=== PATIENT | female | born 1955 | race Caucasian/White ===

== ENCOUNTER → 2016-06-11 | Outpatient (REF) | payer MEDICARE, MEDICAID ==
[~2016-06-11] MED LIST: /BACL20TA PO; /HCTZ25TA PO; AMAR1TAB5 PO; AMLO5TAB2 PO; ASPI81TA PO; BACL-67 PO; CENTTAB PO; COLA100C PO; ENAL2.5T PO; ENAL20TA PO; GABA300C2 PO; HYDR-3565 PO; LORA10TA2 PO; METF1000 PO; NASA55AE; NORCOBULK PO; OMEP20CA3 PO; OXYC15TA76 PO; OXYC1SOL PO; RISP0.5T16 PO; ROBA750T4 PO; SERO1TAB3 PO; TIZA4CAP3 PO; TYLE325T5 PO; ZYRT10TA2 PO; [UNRECOGNIZED DRUG - CODE] PO
[2016-06-11 12:18] LABS: ANION GAP 7 MEQ/L (8-16); BLOOD UREA NITROGEN 10 MG/DL (7-18); CARBON DIOXIDE LEVEL 32 MEQ/L (21-32); CHLORIDE LEVEL 102 MEQ/L (98-107); CREATININE FOR GFR 0.79 MG/DL (0.55-1.02); GLOMERULAR FILTRATION RATE > 60.0 (>45); GLUCOSE, FASTING 140 MG/DL (80-110); POTASSIUM SERUM 4.3 MEQ/L (3.5-5.1); SODIUM LEVEL 141 MEQ/L (136-145)
[2016-06-11 12:19] LABS: ALBUMIN 3.5 GM/DL (3.2-5.2); ALBUMIN/GLOBULIN RATIO 0.92 (1.00-1.93); ALKALINE PHOSPHATASE 76 U/L (45-117); ALT/SGPT 29 U/L (12-78); AST/SGOT 25 U/L (15-37); BILIRUBIN,TOTAL 0.5 MG/DL (0.2-1.0); CALCIUM LEVEL 8.3 MG/DL (8.8-10.2); CHOLESTEROL LEVEL 114 MG/DL (<200); TOTAL PROTEIN 7.3 GM/DL (6.4-8.2); TRIGLYCERIDES LEVEL 134 MG/DL (<150)
== END ==
LOC: M SFHCPLAZ 08:51
PROVIDERS: ATTEND Nurse Practitioner Family
DX: E13.9 Other specified diabetes mellitus without complications (principal); E78.5 Hyperlipidemia, unspecified

== ENCOUNTER → 2016-07-18 | Outpatient (CLI) | payer MEDICARE, MEDICAID ==
[~2016-07-18] MED LIST changes: -HYDR-3565 PO; +HYDR-3719 PO
--- NOTE | 2016-07-26 00:20 | ECWPNPC ---
PATIENT NAME: MOY ELIZABETH : 1955 GENDER: FEMALE VISIT DATE: 07/18/2016 DISCHARGE DATE: 07/18/16 1149 VISIT LOCKED DATE TIME: PHYSICIAN: RD HOUSE PHYSICIAN PAGER NO: TEXT DM [phone] RESOURCE: RD HOUSE REASON FOR APPOINTMENT 1. BACK HISTORY OF PRESENT ILLNESS HISTORY OF PRESENT ILLNESS: PAIN THE PATIENT DESCRIBES THE PAIN... FALL RISK SCREENING: SCREENING :NO FALLS IN THE PAST YEAR TODAY'S VISIT: NOTES: FIRST RETURN TO CLINIC SINCE 01/15. RATES PAIN TODAY 06/11. PAIN IS CENTERD IN LOW BACK HAS BEEN HAVING A NEW AREA OF PAIN AND IS GOING TO CALL HER SURGEONS OFFICE IN [place]. HAS HAD SOME ACHINESS IN HIPS. NO NUMBNESS OR TINGLING IN FEET. . CURRENT MEDICATIONS TAKING GLIMEPIRIDE 4 MG TABLET TAKE ONE TABLET BY MOUTH ONCE DAILY WITH BREAKFAST OR THE FIRST MAIN MEAL OF THE DAY TAKING CENTRUM SILVER OTC TABLET DIRECTED ORALLY ONCE A DAY TAKING COLACE 100 MG CAPSULE 1 CAPSULE NEEDED ORALLY TWICE A DAY TAKING FLONASE 50 MCG/ACT SUSPENSION 1 SPRAY IN EACH NOSTRIL NASALLY ONCE A DAY TAKING SEROQUEL 25 25 MG TABLET 1 TAB ORAL DAILY TAKING GLUCOSE BLOOD . STRIP ONE STRIP FOR [employer] MACHINE CHECK BLOOD SUGAR TWICE A DAY DX E11.65 TAKING VENTOLIN HFA 108 (90 BASE) MCG/ACT AEROSOL SOLUTION 2 PUFFS NEEDED INHALATION EVERY 4 HRS TAKING ZYRTEC ALLERGY 10 MG TABLET 1 TABLET NEEDED ORALLY AT BEDTIME TAKING ATORVASTATIN CALCIUM 20 MG TABLET TAKE ONE TABLET BY MOUTH ONCE DAILY ORALLY ONCE A DAY TAKING NORVASC 5 MG TABLET 1 TABLET ORALLY ONCE A DAY TAKING ENALAPRIL MALEATE 20 MG TABLET 1 TABLET ORALLY TWICE A DAY TAKING PRILOSEC 20 MG DELAYED RELEASE CAPSULE TAKE ONE CAPSULE BY MOUTH 2 TIMES A DAY TAKING GABAPENTIN 300 MG CAPSULE 1 CAPSULE ORALLY THREE TIMES A DAY TAKING HYDROCHLOROTHIAZIDE 25 MG TABLET TAKE ONE TABLET BY MOUTH ONCE DAILY TAKING METFORMIN HCL 1000 MG TABLET TAKE ONE TABLET BY MOUTH 2 TIMES A DAY WITH MEALS TAKING LANCETS . MISCELLANEOUS ONE LANCET SUBCUTANEOUS TWICE DAILY / DX : E11.65 TAKING ONGLYZA 5 MG TABLET 1 TABLET ORALLY ONCE A DAY TAKING ASPIRIN 81 MG TABLET CHEWABLE 1 TABLET ORALLY DAILY TAKING OXYCODONE HCL 15 MG TABLET 1 TABLET ORALLY EVERY 6 HRS PRN PAIN MDD=4 NOT-TAKING JARDIANCE 10 MG TABLET 1 TABLET ORALLY ONCE A DAY NOT-TAKING GLUCOMETER DIRECTED _ICD10 E11.9 ONCE DAILY PREFERS ONE TOUCH ULTRA NOT-TAKING NORVASC 5 MG TABLET TAKE 1 TABLET BY MOUTH ONCE DAILY DISCONTINUED AUGMENTIN 875-125 MG TABLET 1 TABLET ORALLY EVERY 12 HRS DISCONTINUED GLIMEPIRIDE 4 MG TABLET 1 TABLET WITH BREAKFAST OR THE FIRST MAIN MEAL OF THE DAY ORALLY ONCE A DAY DISCONTINUED DIFLUCAN 150MG (1 TABLET) 150 MG TABLET 1 TABLET ORALLY ONCE A DAY DISCONTINUED DIFLUCAN 150 MG TABLET 1 TABLET ORALLY ONCE A DAY MEDICATION LIST REVIEWED AND RECONCILED WITH THE PATIENT PAST MEDICAL HISTORY HYPERTENSION DM 2 ALLERGIC RHINITIS GERD ARTHRITIS EKG [facility] 02/14 EMG/NCS LES NCN 2011 NML. BILAT CTS XR LS SPINE 01/12 L 5 SPONDYLOLYSIS, GRADE 2 SPODYLOLITHESIS L5-S1 WITH DISC SPACES INTACT MRI LS SPINE 04/19/13 BILATERAL L5 SPONDYLOSIS, GRADE 2, 12 MM L5-S1 SPONDYLOLISTHESIS, BILATERAL L5-S1 NEURAL FORAMINAL NARROWING, DISC PROTRUSION L3-4- [facility]- DR YIN. [facility] PAIN CLINIC MAMMO- 08/14 [facility] (LAST APPT 01/12) LEFT EAR PAIN- EVAL BY ENT 10/13 FELT TO BE TMJ RELATED TO LACK OF TEETH. MRI BRAIN- CHRONIC SMALL VESSEL ISCHEMIC DISEASE/NON SPECIFIC DEMYELINATION. TOURETTE'S SYNDROME- NCN ALLERGIES SEASONAL: WATERY EYES, SNEEZING: ALLERGY SULFA: GI DISTRESS: SIDE EFFECTS SOCIAL HISTORY GENERAL: TOBACCO USE ARE YOU A:NONSMOKER LEARNING BARRIERS / SPECIAL NEEDS ORIENTED TO PLAN OF CARE: PATIENT, PAIN MANAGEMENT PATIENT, ORIENTED TO PLAN OF CARE: PATIENT, PAIN MANAGEMENT PATIENT. NEW PATIENT PAIN DIARY TODAY'S VISITNOTES FROM 0-10, WHAT LEVEL IS YOUR PAIN TODAY?0 PAIN CLINIC PFS, CLERGY, PUBLIC HEALTH REFERRALS PFS REFERRAL NEEDED?NO CLERGY REFERRAL NEEDED?NO PUBLIC HEALTH REFERRAL NEEDED?NO WAS THE PROVIDER NOTIFIED OF ANY PERTINENT INFO?NO PFS REFERRAL NEEDED?NO CLERGY REFERRAL NEEDED?NO PUBLIC HEALTH REFERRAL NEEDED?NO WAS THE PROVIDER NOTIFIED OF ANY PERTINENT INFO?NO REVIEW OF SYSTEMS CONSTITUTIONAL: ANY CHANGE IN YOUR MEDICAL CONDITION? NO . CHILLS NO . FEVER NO . INFECTION: DO YOU HAVE NEW INFECTIONS? NO . DO YOU HAVE HISTORY OF MRSA? NO . MUSCULOSKELETAL: ANY NEW PATTERNS OF PAIN OR NUMBNESS? NO . GASTROENTEROLOGY: ANY NEW CHANGE IN BOWEL CONTROL? NO . GENITOURINARY: ANY NEW CHANGE IN BLADDER CONTROL? NO . IS THERE A CHANCE YOU COULD BE ? NO . HEMATOLOGY/LYMPH: DO YOU TAKE ANY BLOOD THINNERS? (FOR EXAMPLE- COUMADIN, PLAVIX, AGGRENOX, PLATEL, PRADAXA, OR XARELTO) NO . WHEN WAS YOUR LAST DOSE? DATE: TIME: . NEUROLOGY: HAVE YOU FALLEN IN THE PAST 6 MONTHS? NO . ANY NEW EXTREMITY NUMBNESS OR WEAKNESS? NO . CARDIOLOGY: DO YOU HAVE A PACEMAKER OR DEFIBRILLATOR? NO . RESPIRATORY: HAVE YOU BEEN SICK IN THE PAST WEEK? NO . FEVER NO . FLU LIKE SYMPTOMS? NO . COUGH NO . INTEGUMENTARY: DO YOU HAVE ANY RASHES OR OPEN SORES? NO . ALLERGIC/IMMUNO: ARE YOU ALLERGIC TO SHELLFISH OR IV DYE? NO . ANY NEW ALLERGIES? NO . PSYCHIATRIC: DO YOU HAVE THOUGHTS OF HURTING YOURSELF OR SOMEONE ELSE? NO . ARE YOU ABUSED, NEGLECTED, OR IN AN UNSAFE ENVIRONMENT? NO . ENDOCRINOLOGY: ARE YOU DIABETIC? YES A1C IS MOVING DOWN. BS 113 -120. IS SEEING A DIETITIION . OTHER: DO YOU NEED ANY PRESCRIPTIONS? NO . IF YES, PLEASE LIST: ____ . ANY NEW PROBLEMS WITH YOUR MEDICATIONS? NO . WHEN DID YOU LAST EAT? ____ . WHEN DID YOU LAST DRINK? ____ . WHAT DID YOU LAST DRINK? ____ . NAME OF PERSON DRIVING YOU HOME? ____ . DO YOU HAVE ANY OTHER QUESTIONS OR CONCERNS NO . REVIEWED BY: PROVIDER: RD VELASQUEZ . VITAL SIGNS WT 253.0 LBS, HT 68 IN, BMI 38.46 INDEX, BP 144/87 MM HG, HR 107 /MIN, RR 18 /MIN, TEMP 97.8 F, OXYGEN SAT % 94, NA INITIALS TL 0942, REVIEWED BY: MLF. EXAMINATION GENERAL EXAMINATION: PSYCHALERT , ORIENTED X 3 , APPROPRIATE MOOD AND AFFECT . LUNGS:LUNG SOUNDS ARE CLEAR, NO WHEEZES RALES OR RHONCHI. HEART:HEART RATE REGULAR. MUSCULOSKELETAL:MUSCLE STRENGTH TESTING 5/5 BILATERAL LOWER EXTREMITIES. RISES EASILY TO STANDING POSITION. POSTURE UPRIGHT. GAIT WIDEBASED, NONANTALGIC. MILD TENDERNESS OVER LUMBOSACRAL AXIS. , TRIGGER POINTS AND TIGHT FIBROUS BANDS OVER LUMBOSACRAL PARAVERTEBRAL MUSCLES. . ASSESSMENTS LUMBAR POST-LAMINECTOMY SYNDROME - M96.1 (PRIMARY) DORSALGIA, UNSPECIFIED - M54.9 MYALGIA - M79.1 TREATMENT LUMBAR POST-LAMINECTOMY SYNDROME NOTES: CALL WHEN SCRIPTS NEEDED UTOX TODAY, #128 - SCREENING BMI AND F/U PLAN IN : BMI ABOVE NORMAL TODAY. DISCUSSED WITH PATIENT NUTRITIONAL FOOD CHOICES TO ASSIST WITH WEIGHT LOSS. RECCOMMENDED REDUCING SALT, SUGAR, SODA INTAKE. RECOMMEND INCREASE ACTIVITY TO INCLUDE WALKING ON A REGULAR BASIS. CLINICAL NOTES: ISTOP REGISTRY REVIEWED AND DEMNOSTRATES COMPLLIANCE. BRINGS IN MEDICATIONS WHICH IS APPROPRIATE FOR WHAT WAS DISPENSED. RECENT URINE TOXICOLOGY REVIEWED. NO UNAUTHORIZED MEDICATIONS. NO ILLICIT SUBSTANCES AND PRESCRIBED MEDICATIONS WERE PRESENT. PROCEDURE CODES FA211 ESTABILISHED PATIENT [facility] FACILITY CHARGE G8783 BP SCR PRFRM RCMDD DEFIND SCR INTVL G8730 PAIN ASSESS POS TOOL F/U PLAN DOC 3016F PT SCRND UNHLTHY [place] USE 1124F ACP DISCUSS-NO DSCNMKR DOCD 1036F TOBACCO NON-USER G8427 DOC MEDS VERIFIED W/PT OR RE G8417 BMI >=30 CALCUATE W/FOLLOWUP 3288F FALL RISK ASSESSMENT DOCD DISPOSITION & COMMUNICATION FOLLOW UP 2 MONTHS (REASON: BACK PAIN ) ELECTRONICALLY SIGNED BY MITUL MAYO ON 07/25/2016 AT 10:10 AM EST DISCLAIMER : THIS IS A VISIT SUMMARY EXTRACTED FROM THE [facility] CHART. IT IS NOT A COPY OF THE [employer] PROGRESS NOTE. MTDD
== END ==
LOC: M PAIN 10:00
PROVIDERS: ATTEND Nurse Practitioner Family
DX: M96.1 Postlaminectomy syndrome, not elsewhere classified (principal); M54.9 Dorsalgia, unspecified; M79.1 Myalgia; Z79.891 Long term (current) use of opiate analgesic; Z79.82 Long term (current) use of aspirin; Z79.899 Other long term (current) drug therapy; Z79.84 Long term (current) use of oral hypoglycemic drugs; I10 Essential (primary) hypertension; E11.9 Type 2 diabetes mellitus without complications; K21.9 Gastro-esophageal reflux disease without esophagitis; M19.90 Unspecified osteoarthritis, unspecified site; I25.9 Chronic ischemic heart disease, unspecified; F95.2 Tourette's disorder; Z88.2 Allergy status to sulfonamides; Z91.09 Other allergy status, other than to drugs and biological substances

== ENCOUNTER → 2016-08-30 | Outpatient (CLI) | payer MEDICARE, MEDICAID ==
[~2016-08-30] MED LIST changes: -COLA100C PO; +COLA100C3 PO
--- NOTE | 2016-08-30 12:41 | REPMRS ---
Patient History The patient states she had a clinical breast exam in 07/2016. Patient is postmenopausal. No known family history of cancer. Digital Woman Screen Mammo: August 30, 2016 - Exam #: [id number] Bilateral CC and MLO view(s) were taken. Technologist: Charity Kay, Technologist Prior study comparison: August 11, 2015, digital woman screen mammo performed at [facility]. August 09, 2014, digital woman screen mammo performed at [facility]. January 21, 2013, digital woman screen mammo performed at [facility]. FINDINGS: The breast tissue is almost entirely fat. There has been no change in the appearance of the mammogram from the prior studies. There is no interval development of dominant mass, areas of architectural distortion, or clustered microcalcification typical of malignancy. There are scattered, small, benign calcifications of doubtful clinical significance. Mostr of these are in the skin. Scattered lymph nodes are seen in the left axilla. No significant changes when compared with prior studies. ASSESSMENT: BI-RADS/ACR category 2 mammogram. Benign finding(s). Recommendation Routine screening mammogram in 1 year. A. Negative x-ray reports should not delay biopsy if a dominant or clinically suspicious mass is present. B. Four to eight percent of cancers are not identified by mammography. C. Adenosis and dense breast may obscure an underlying neoplasm.(for women over age 40). This mammogram was interpreted with the aid of an FDA-approved computer-aided dectection system. Electronically Signed By: Haresh Anderson MD 08/30/16 [id number]
== END ==
LOC: M WHC 10:14
PROVIDERS: ATTEND Nurse Practitioner Women's Health
DX: Z01.419 Encounter for gynecological examination (general) (routine) without abnormal findings (principal); Z12.31 Encounter for screening mammogram for malignant neoplasm of breast; Z78.0 Asymptomatic menopausal state; Z12.12 Encounter for screening for malignant neoplasm of rectum
CPT/HCPCS: 82270; G0101; G0202

== ENCOUNTER → 2016-09-11 | Outpatient (REF) | payer MEDICARE, MEDICAID ==
[2016-09-11 12:08] LABS: ALBUMIN 3.5 GM/DL (3.2-5.2); ALBUMIN/GLOBULIN RATIO 0.95 (1.00-1.93); ALKALINE PHOSPHATASE 80 U/L (45-117); ALT/SGPT 36 U/L (12-78); ANION GAP 6 MEQ/L (8-16); AST/SGOT 26 U/L (15-37); BILIRUBIN,TOTAL 0.5 MG/DL (0.2-1.0); BLOOD UREA NITROGEN 14 MG/DL (7-18); CALCIUM LEVEL 9.5 MG/DL (8.8-10.2); CARBON DIOXIDE LEVEL 33 MEQ/L (21-32); CHLORIDE LEVEL 101 MEQ/L (98-107); CREATININE FOR GFR 0.83 MG/DL (0.55-1.02); GLOMERULAR FILTRATION RATE > 60.0 (>45); GLUCOSE, FASTING 143 MG/DL (80-110); POTASSIUM SERUM 4.3 MEQ/L (3.5-5.1); SODIUM LEVEL 140 MEQ/L (136-145); TOTAL PROTEIN 7.2 GM/DL (6.4-8.2)
[2016-09-11 12:09] LABS: VITAMIN B12 LEVEL 301 PG/ML (247-911)
== END ==
LOC: M SFHCPLAZ 09:17
PROVIDERS: ATTEND Nurse Practitioner Family
DX: E11.9 Type 2 diabetes mellitus without complications (principal); F95.2 Tourette's disorder

== ENCOUNTER → 2016-09-23 | Outpatient (CLI) | payer MEDICARE, MEDICAID ==
--- NOTE | 2016-10-10 00:20 | ECWPNPC ---
PATIENT NAME: MOY ELIZABETH : 1955 GENDER: FEMALE VISIT DATE: 09/23/2016 DISCHARGE DATE: 09/23/16 1048 VISIT LOCKED DATE TIME: PHYSICIAN: RD HOUSE PHYSICIAN PAGER NO: TEXT TO [phone] RESOURCE: RD HOUSE REASON FOR APPOINTMENT 1. BACK PAIN HISTORY OF PRESENT ILLNESS HISTORY OF PRESENT ILLNESS: PAIN THE PATIENT DESCRIBES THE PAIN... FALL RISK SCREENING: SCREENING :NO FALLS IN THE PAST YEAR TODAY'S VISIT: NOTES: RATES PAIN TODAY 06/11. NOTES PAIN IS INTERMITTANT AND ACHING. DOES HAVE SOME MORE DISCOMFORTING DAYS. HAS SOME SLEEP DISRUPTION. NOTES STIFFNESS. . CURRENT MEDICATIONS TAKING CENTRUM SILVER OTC TABLET DIRECTED ORALLY ONCE A DAY TAKING COLACE 100 MG CAPSULE 1 CAPSULE NEEDED ORALLY TWICE A DAY TAKING FLONASE 50 MCG/ACT SUSPENSION 1 SPRAY IN EACH NOSTRIL NASALLY ONCE A DAY TAKING SEROQUEL 25 25 MG TABLET 1 TAB ORAL DAILY TAKING GLUCOSE BLOOD . STRIP ONE STRIP FOR [employer]OUND[employer] MACHINE CHECK BLOOD SUGAR TWICE A DAY DX E11.65 TAKING VENTOLIN HFA 108 (90 BASE) MCG/ACT AEROSOL SOLUTION 2 PUFFS NEEDED INHALATION EVERY 4 HRS TAKING ZYRTEC ALLERGY 10 MG TABLET 1 TABLET NEEDED ORALLY AT BEDTIME TAKING ATORVASTATIN CALCIUM 20 MG TABLET TAKE ONE TABLET BY MOUTH ONCE DAILY ORALLY ONCE A DAY TAKING NORVASC 5 MG TABLET 1 TABLET ORALLY ONCE A DAY TAKING ENALAPRIL MALEATE 20 MG TABLET 1 TABLET ORALLY TWICE A DAY TAKING PRILOSEC 20 MG DELAYED RELEASE CAPSULE TAKE ONE CAPSULE BY MOUTH 2 TIMES A DAY TAKING GABAPENTIN 300 MG CAPSULE 1 CAPSULE ORALLY THREE TIMES A DAY TAKING HYDROCHLOROTHIAZIDE 25 MG TABLET TAKE ONE TABLET BY MOUTH ONCE DAILY TAKING METFORMIN HCL 1000 MG TABLET TAKE ONE TABLET BY MOUTH 2 TIMES A DAY WITH MEALS TAKING LANCETS . MISCELLANEOUS ONE LANCET SUBCUTANEOUS TWICE DAILY / DX : E11.65 TAKING ONGLYZA 5 MG TABLET 1 TABLET ORALLY ONCE A DAY TAKING GLIMEPIRIDE 4 MG TABLET TAKE ONE TABLET BY MOUTH ONCE DAILY WITH BREAKFAST OR THE FIRST MAIN MEAL OF THE DAY TAKING OXYCODONE HCL 15 MG TABLET 1 TABLET ORALLY EVERY 6 HRS PRN PAIN MDD=4 TAKING ASPIRIN 81 MG TABLET CHEWABLE 1 TABLET ORALLY DAILY NOT-TAKING JARDIANCE 10 MG TABLET 1 TABLET ORALLY ONCE A DAY NOT-TAKING GLUCOMETER DIRECTED _ICD10 E11.9 ONCE DAILY PREFERS ONE TOUCH ULTRA NOT-TAKING NORVASC 5 MG TABLET TAKE 1 TABLET BY MOUTH ONCE DAILY MEDICATION LIST REVIEWED AND RECONCILED WITH THE PATIENT PAST MEDICAL HISTORY HYPERTENSION DM 2 ALLERGIC RHINITIS GERD ARTHRITIS EKG [facility] 02/14 EMG/NCS LES NCN 2011 NML. BILAT CTS XR LS SPINE 01/12 L 5 SPONDYLOLYSIS, GRADE 2 SPODYLOLITHESIS L5-S1 WITH DISC SPACES INTACT MRI LS SPINE 04/19/13 BILATERAL L5 SPONDYLOSIS, GRADE 2, 12 MM L5-S1 SPONDYLOLISTHESIS, BILATERAL L5-S1 NEURAL FORAMINAL NARROWING, DISC PROTRUSION L3-4- [facility]- DR YIN. [facility] PAIN CLINIC LEFT EAR PAIN- EVAL BY ENT 10/13 FELT TO BE TMJ RELATED TO LACK OF TEETH. MRI BRAIN- CHRONIC SMALL VESSEL ISCHEMIC DISEASE/NON SPECIFIC DEMYELINATION. TOURETTE'S SYNDROME- NCN ALLERGIES SEASONAL: WATERY EYES, SNEEZING: ALLERGY SULFA: GI DISTRESS: SIDE EFFECTS SOCIAL HISTORY GENERAL: PAIN CLINIC PFS, CLERGY, PUBLIC HEALTH REFERRALS CLERGY REFERRAL NEEDED?NO WAS THE PROVIDER NOTIFIED OF ANY PERTINENT INFO?NO PFS REFERRAL NEEDED?NO PUBLIC HEALTH REFERRAL NEEDED?NO PATIENT: ____. REVIEW OF SYSTEMS CONSTITUTIONAL: ANY CHANGE IN YOUR MEDICAL CONDITION? YES PT EVALUATED BY DR ROBLES FOR CARPAL TUNNEL, PT REPORTS SHE IS TO HAVE SURGERY ON THIS, DATE UNKNOWN . CHILLS NO . FEVER NO . INFECTION: DO YOU HAVE NEW INFECTIONS? NO . DO YOU HAVE HISTORY OF MRSA? NO . MUSCULOSKELETAL: ANY NEW PATTERNS OF PAIN OR NUMBNESS? NO . GASTROENTEROLOGY: ANY NEW CHANGE IN BOWEL CONTROL? NO . GENITOURINARY: ANY NEW CHANGE IN BLADDER CONTROL? NO . IS THERE A CHANCE YOU COULD BE ? NO . HEMATOLOGY/LYMPH: DO YOU TAKE ANY BLOOD THINNERS? (FOR EXAMPLE- COUMADIN, PLAVIX, AGGRENOX, PLATEL, PRADAXA, OR XARELTO) NO . WHEN WAS YOUR LAST DOSE? DATE: TIME: . NEUROLOGY: HAVE YOU FALLEN IN THE PAST 6 MONTHS? NO . ANY NEW EXTREMITY NUMBNESS OR WEAKNESS? NO . CARDIOLOGY: DO YOU HAVE A PACEMAKER OR DEFIBRILLATOR? NO . RESPIRATORY: HAVE YOU BEEN SICK IN THE PAST WEEK? NO . FEVER NO . FLU LIKE SYMPTOMS? NO . COUGH NO . INTEGUMENTARY: DO YOU HAVE ANY RASHES OR OPEN SORES? NO . ALLERGIC/IMMUNO: ARE YOU ALLERGIC TO SHELLFISH OR IV DYE? NO . ANY NEW ALLERGIES? NO . PSYCHIATRIC: DO YOU HAVE THOUGHTS OF HURTING YOURSELF OR SOMEONE ELSE? NO . ARE YOU ABUSED, NEGLECTED, OR IN AN UNSAFE ENVIRONMENT? NO . ENDOCRINOLOGY: ARE YOU DIABETIC? YES BLOOD SUGARS IN 130 TODAY. . OTHER: DO YOU NEED ANY PRESCRIPTIONS? NO . IF YES, PLEASE LIST: ____ . ANY NEW PROBLEMS WITH YOUR MEDICATIONS? NO . WHEN DID YOU LAST EAT? ____ . WHEN DID YOU LAST DRINK? ____ . WHAT DID YOU LAST DRINK? ____ . NAME OF PERSON DRIVING YOU HOME? ____ . DO YOU HAVE ANY OTHER QUESTIONS OR CONCERNS NO . REVIEWED BY: PROVIDER: RD VELASQUEZ . VITAL SIGNS WT 250 LBS, HT 68 IN, BMI 38.01 INDEX, BP 175/91 MM HG, HR 85 /MIN, RR 18 /MIN, TEMP 98.2 F, OXYGEN SAT % 95, SAFE IN ENV? (Y/N) YES, NA INITIALS SC 10:25, REVIEWED BY: CARL. EXAMINATION GENERAL EXAMINATION: PSYCHALERT , ORIENTED X 3 , APPROPRIATE MOOD AND AFFECT . LUNGS:LUNG SOUNDS ARE CLEAR, NO WHEEZES RALES OR RHONCHI. HEART:HEART RATE REGULAR. MUSCULOSKELETAL:MUSCLE STRENGTH TESTING 5/5 BILATERAL LOWER EXTREMITIES. RISES EASILY TO STANDING POSITION. POSTURE UPRIGHT. GAIT WIDEBASED, NONANTALGIC. MILD TENDERNESS OVER LUMBOSACRAL AXIS. , TRIGGER POINTS AND TIGHT FIBROUS BANDS OVER LUMBOSACRAL PARAVERTEBRAL MUSCLES. . ASSESSMENTS LUMBAR POST-LAMINECTOMY SYNDROME - M96.1 (PRIMARY) MYALGIA - M79.1 SPONDYLOSIS OF LUMBAR REGION WITHOUT MYELOPATHY OR RADICULOPATHY - M47.816 TREATMENT LUMBAR POST-LAMINECTOMY SYNDROME REFILL OXYCODONE HCL TABLET, 15 MG, 1 TABLET, ORALLY, EVERY 6 HRS PRN PAIN MDD=4, 30 DAY(S), 120, REFILLS 0 NOTES: FRUITS AND VEGETABLES AND LOTS OF WATER. CONTINUE CURRENT MEDS . KEEP WALKING AND MOVING FOR EXERCISE, FALLS CARE PLAN: 1. RECOMMEND REMOVING ALL THROW RUGS. 2. RECOMMEND NIGHT LIGHTS 3. RECOMMEND WEARING RUBBER SOLED SHOES AND TO NOT GO BAREFOOT. 4.. ADVISED TO CHANGE POSITION SLOWLY FROM SUPINE TO STANDING TO AVOID DIZZINESS. 5. ADVISED TO USE ASSISTIVE DEVICE SUCH CANE OR WALKER 6. USE [employer]IF[employer] SERVICES OR KEEP PORTABLE PHONE READILY AVAILABLE, #128 - SCREENING BMI AND F/U PLAN IN : BMI ABOVE NORMAL TODAY. DISCUSSED WITH PATIENT NUTRITIONAL FOOD CHOICES TO ASSIST WITH WEIGHT LOSS. RECCOMMENDED REDUCING SALT, SUGAR, SODA INTAKE. RECOMMEND INCREASE ACTIVITY TO INCLUDE WALKING ON A REGULAR BASIS. CLINICAL NOTES: ISTOP REGISTRY REVIEWED AND DEMNOSTRATES COMPLLIANCE. BRINGS IN MEDICATIONS WHICH IS APPROPRIATE FOR WHAT WAS DISPENSED. RECENT URINE TOXICOLOGY REVIEWED. NO UNAUTHORIZED MEDICATIONS. NO ILLICIT SUBSTANCES AND PRESCRIBED MEDICATIONS WERE PRESENT. PROCEDURE CODES FA211 ESTABILISHED PATIENT [facility] FACILITY CHARGE G8783 BP SCR PRFRM RCMDD DEFIND SCR INTVL G8730 PAIN ASSESS POS TOOL F/U PLAN DOC 3016F PT SCRND UNHLTHY [place] USE 1124F ACP DISCUSS-NO DSCNMKR DOCD 1036F TOBACCO NON-USER 0518F FALL PLAN OF CARE DOCD G8427 DOC MEDS VERIFIED W/PT OR RE G8417 BMI >=30 CALCUATE W/FOLLOWUP 3288F FALL RISK ASSESSMENT DOCD DISPOSITION & COMMUNICATION FOLLOW UP 7 WEEKS ELECTRONICALLY SIGNED BY MITUL MAYO ON 10/09/2016 AT 09:14 AM EDT DISCLAIMER : THIS IS A VISIT SUMMARY EXTRACTED FROM THE [employer] CHART. IT IS NOT A COPY OF THE [employer] PROGRESS NOTE. [email or web address]
== END ==
LOC: M PAIN 10:20
PROVIDERS: ATTEND Nurse Practitioner Family
DX: M96.1 Postlaminectomy syndrome, not elsewhere classified (principal); M79.1 Myalgia; M47.816 Spondylosis without myelopathy or radiculopathy, lumbar region; I10 Essential (primary) hypertension; E11.9 Type 2 diabetes mellitus without complications; K21.9 Gastro-esophageal reflux disease without esophagitis; M19.90 Unspecified osteoarthritis, unspecified site; I73.9 Peripheral vascular disease, unspecified; F95.2 Tourette's disorder; J30.9 Allergic rhinitis, unspecified; Z88.2 Allergy status to sulfonamides; Z79.84 Long term (current) use of oral hypoglycemic drugs; Z79.891 Long term (current) use of opiate analgesic; Z79.82 Long term (current) use of aspirin; Z79.899 Other long term (current) drug therapy

== ENCOUNTER → 2016-09-26 | Outpatient (REF) | payer MEDICARE, MEDICAID | LOC: M LAB REF 15:55 | PROVIDERS: ATTEND Nurse Practitioner Family | DX: N30.01 Acute cystitis with hematuria (principal) | CPT/HCPCS: 81002; 87088; 87186; G0463 ==

== ENCOUNTER → 2016-11-03 | Outpatient (CLI) | payer MEDICARE, MEDICAID ==
[2016-11-03 17:38] LABS: MEAN CORPUSCULAR HEMOGLOBIN 28.5 pg (27.0-33.0); MEAN CORPUSCULAR HGB CONC 33.5 g/dl (32.0-36.5); MEAN CORPUSCULAR VOLUME 84.9 fl (80.0-96.0); RED CELL DISTRIBUTION WIDTH 13.8 % (11.5-14.5); WHITE BLOOD COUNT 12.1 K/mm3 (4.0-10.0)
[2016-11-03 17:41] LABS: ALBUMIN 3.5 GM/DL (3.2-5.2); ALBUMIN/GLOBULIN RATIO 0.88 (1.00-1.93); ALKALINE PHOSPHATASE 81 U/L (45-117); ALT/SGPT 31 U/L (12-78); ANION GAP 5 MEQ/L (8-16); AST/SGOT 16 U/L (15-37); BILIRUBIN,TOTAL 0.5 MG/DL (0.2-1.0); BLOOD UREA NITROGEN 10 MG/DL (7-18); CALCIUM LEVEL 8.6 MG/DL (8.8-10.2); CARBON DIOXIDE LEVEL 33 MEQ/L (21-32); CHLORIDE LEVEL 101 MEQ/L (98-107); CREATININE FOR GFR 0.78 MG/DL (0.55-1.02); GLOMERULAR FILTRATION RATE > 60.0 (>45); GLUCOSE, FASTING 121 MG/DL (80-110); POTASSIUM SERUM 3.8 MEQ/L (3.5-5.1); SODIUM LEVEL 139 MEQ/L (136-145); TOTAL PROTEIN 7.5 GM/DL (6.4-8.2)
[2016-11-03 18:29] LABS: BASOPHILS 1 % (0-4); EOSINOPHILS 3 % (0-5)
[2016-11-03 18:33] LABS: ERYTHROCYTE SEDIMENTATION RATE 41 mm/hr (0-30)
--- NOTE | 2016-11-04 06:23 | REP ---
ABDOMEN, FLAT AND UPRIGHT; PA CHEST: HISTORY: Left lower quadrant pain. COMPARISON: 05/06/2015. Air is present in small and large intestine. Several air fluid levels are present. There are no dilated loops of intestine. There is no pneumoperitoneum. A moderate quantity of stool is present in the colon. The patient is status post L5-S1 posterior spinal fusion and L5-S1 laminectomy. Surgical clips are present in the right upper quadrant. The lungs are clear. IMPRESSION: 1. Nonspecific bowel gas pattern. 2. There is a moderate amount of stool in the colon. Signed by Rodríguez Richardson MD 11/04/2016 08:23 A
== END ==
LOC: M WUC 15:45
PROVIDERS: ATTEND Physician Assistant
DX: R10.32 Left lower quadrant pain (principal)

== ENCOUNTER → 2016-11-04 | Outpatient (CLI) | payer MEDICARE, MEDICAID ==
[~2016-11-04] MED LIST changes: +GASTROGRAFIN SOLUTION 30ML (Q9963) As Ordered ONE; +ISOVUE-370 76% 100ML VIAL (Q9967) As Ordered ONE
--- NOTE | 2016-11-04 13:52 | REP ---
CT ABDOMEN AND PELVIS WITH IV AND ORAL CONTRAST: HISTORY: Left lower quadrant abdominal pain. Elevated white blood cell count. Question diverticulitis. COMPARISON CT STUDY: November 08, 2014. CT CONTRAST DOSE: 100 mL of Isovue [address] FINDINGS: Preliminary digital welding rod coater radiograph demonstrates an unremarkable bowel gas pattern. The patient is status post lower lumbar spine fusion. The lung bases are clear except for a granulomatous calcification in the right lower lobe. There is no evidence of pleural effusion. The liver and the spleen are normal in size homogeneous in texture. There is mild fatty infiltration of the liver. Gallbladder is surgically absent. No adrenal lesion is seen. Pancreas is unremarkable. The kidneys enhance symmetrically and are morphologically intact. No hydronephrosis mass or calculus is appreciated. A normal appendix is seen in the right lower abdomen. There is extensive left colonic diverticulosis. There is mural thickening and moderate pericolonic fat streaking in the sigmoid colon in the left lower quadrant consistent with acute diverticulitis. There is no evidence of abscess or free intraperitoneal air. The patient is status post hysterectomy. Urinary bladder is intact. There is a small ventral hernia at the level of the umbilicus transmitting abdominal fat. IMPRESSION: Findings consistent with acute diverticulitis affecting the sigmoid colon. No abscess or free air seen. Extensive left colonic diverticulosis is seen. Status post cholecystectomy and hysterectomy. Fatty infiltration of the liver. Small ventral hernia transmitting abdominal fat. Status post lumbar spine fusion. Signed by Edgar Neff MD 11/04/2016 04:41 P
== END ==
LOC: M RAD 11:05
PROVIDERS: ATTEND Physician Assistant
DX: R10.32 Left lower quadrant pain (principal); K57.92 Diverticulitis of intestine, part unspecified, without perforation or abscess without bleeding; K57.30 Diverticulosis of large intestine without perforation or abscess without bleeding; K76.0 Fatty (change of) liver, not elsewhere classified; K43.9 Ventral hernia without obstruction or gangrene; Z98.1 Arthrodesis status
CPT/HCPCS: 74177; Q9963; Q9967

== ENCOUNTER → 2016-11-05 | Outpatient (CLI) | payer MEDICARE, MEDICAID ==
[~2016-11-05] MED LIST changes: -GASTROGRAFIN SOLUTION 30ML (Q9963) As Ordered ONE; -ISOVUE-370 76% 100ML VIAL (Q9967) As Ordered ONE
--- NOTE | 2016-11-22 00:41 | ECWPNPC ---
PATIENT NAME: MOY ELIZABETH : 1955 GENDER: FEMALE VISIT DATE: 11/05/2016 DISCHARGE DATE: 11/05/16 1503 VISIT LOCKED DATE TIME: PHYSICIAN: RD HOUSE PHYSICIAN PAGER NO: TEXT NQ [phone] RESOURCE: RD HOUSE REASON FOR APPOINTMENT 1. BACK HISTORY OF PRESENT ILLNESS HISTORY OF PRESENT ILLNESS: PAIN THE PATIENT DESCRIBES THE PAIN... FALL RISK SCREENING: SCREENING :NO FALLS IN THE PAST YEAR TODAY'S VISIT: NOTES: RATES PAIN LEVEL TODAY 3/10. DESCRIBES PAIN ACHING, AND THROBBING. NOTES PAIN IS CENTERED ACROSS THE LOW BACK WITH NO RADIATION TO HIPS, BUTTUCKS OR LEGS,. CURRENT MEDICATIONS TAKING CENTRUM SILVER OTC TABLET DIRECTED ORALLY ONCE A DAY TAKING SEROQUEL 25 25 MG TABLET 1 TAB ORAL DAILY TAKING GLUCOSE BLOOD . STRIP ONE STRIP FOR [place] MACHINE CHECK BLOOD SUGAR TWICE A DAY DX E11.65 TAKING LANCETS . MISCELLANEOUS ONE LANCET SUBCUTANEOUS TWICE DAILY / DX : E11.65 TAKING ZYRTEC ALLERGY 10 MG TABLET 1 TABLET NEEDED ORALLY AT BEDTIME TAKING FLONASE 50 MCG/ACT SUSPENSION 1 SPRAY IN EACH NOSTRIL NASALLY ONCE A DAY TAKING ATORVASTATIN CALCIUM 20 MG TABLET TAKE ONE TABLET BY MOUTH ONCE DAILY ORALLY ONCE A DAY TAKING COLACE 100 MG CAPSULE 1 CAPSULE NEEDED ORALLY TWICE A DAY TAKING NORVASC 5 MG TABLET 1 TABLET ORALLY ONCE A DAY TAKING ENALAPRIL MALEATE 20 MG TABLET 1 TABLET ORALLY TWICE A DAY TAKING HYDROCHLOROTHIAZIDE 25 MG TABLET TAKE ONE TABLET BY MOUTH ONCE DAILY ORALLY DAILY TAKING GLIMEPIRIDE 4 MG TABLET 1 TABLET WITH BREAKFAST OR THE FIRST MAIN MEAL OF THE DAY ORALLY ONCE A DAY TAKING ASPIRIN 81 MG TABLET CHEWABLE 1 TABLET ORALLY DAILY TAKING VICTOZA 18 MG/3ML SOLUTION PEN-INJECTOR 0.6 ML SUBCUTANEOUS ONCE A DAY TAKING BD PEN NEEDLE ULTRAFINE 29G X 12.7MM MISCELLANEOUS DIRECTED SUBCUTANEOUSLY FOR VICTOZA PEN DAILY TAKING PRILOSEC 20 MG CAPSULE DELAYED RELEASE 1 CAPSULE ORALLY BID TAKING FORTAMET 1000 MG TABLET EXTENDED RELEASE 24 HOUR 2 TABLETS WITH EVENING MEAL ORALLY ONCE A DAY WITH EVENING MEAL TAKING OXYCODONE HCL 15 MG TABLET 1 TABLET ORALLY EVERY 6 HRS PRN PAIN MDD=4 TAKING GABAPENTIN 300 MG CAPSULE 1 CAPSULE ORALLY THREE TIMES A DAY TAKING FLAGYL 500 MG TABLET 1 TABLET ORALLY EVERY 6 HRS NOT-TAKING MACROBID 100 MG CAPSULE 1 CAPSULE WITH FOOD ORALLY EVERY 12 HRS NOT-TAKING VENTOLIN HFA 108 (90 BASE) MCG/ACT AEROSOL SOLUTION 2 PUFFS NEEDED INHALATION EVERY 4 HRS NOT-TAKING JARDIANCE 10 MG TABLET 1 TABLET ORALLY ONCE A DAY NOT-TAKING GLUCOMETER DIRECTED _ICD10 E11.9 ONCE DAILY PREFERS ONE TOUCH ULTRA NOT-TAKING NORVASC 5 MG TABLET TAKE 1 TABLET BY MOUTH ONCE DAILY MEDICATION LIST REVIEWED AND RECONCILED WITH THE PATIENT PAST MEDICAL HISTORY HYPERTENSION DM 2 ALLERGIC RHINITIS GERD ARTHRITIS EKG [facility] 02/14 EMG/NCS LES NCN 2011 NML. BILAT CTS XR LS SPINE 01/12 L 5 SPONDYLOLYSIS, GRADE 2 SPODYLOLITHESIS L5-S1 WITH DISC SPACES INTACT MRI LS SPINE 04/19/13 BILATERAL L5 SPONDYLOSIS, GRADE 2, 12 MM L5-S1 SPONDYLOLISTHESIS, BILATERAL L5-S1 NEURAL FORAMINAL NARROWING, DISC PROTRUSION L3-4- [facility]- DR YIN. [facility] PAIN CLINIC LEFT EAR PAIN- EVAL BY ENT 10/13 FELT TO BE TMJ RELATED TO LACK OF TEETH. MRI BRAIN- CHRONIC SMALL VESSEL ISCHEMIC DISEASE/NON SPECIFIC DEMYELINATION. TOURETTE'S SYNDROME- NCN ALLERGIES SEASONAL: WATERY EYES, SNEEZING: ALLERGY SULFA: GI DISTRESS: SIDE EFFECTS REVIEW OF SYSTEMS REVIEWED BY: PROVIDER: RD VELASQUEZ . CONSTITUTIONAL: ANY CHANGE IN YOUR MEDICAL CONDITION? YES, DIVERTICULOSIS AND ON ANTIBIOTICS . CHILLS NO . FEVER NO . INFECTION: DO YOU HAVE NEW INFECTIONS? NO . DO YOU HAVE HISTORY OF MRSA? NO . MUSCULOSKELETAL: ANY NEW PATTERNS OF PAIN OR NUMBNESS? NO . GASTROENTEROLOGY: GENERAL NEW ONSET OF LEFT SIDED ABD PAIN - TO WALK IN CLINIC WAS DX WITH DIVERTICULOS/ITIS - ON ABX AND FURTHER W/U PLANNED. . ANY NEW CHANGE IN BOWEL CONTROL? NO . GENITOURINARY: ANY NEW CHANGE IN BLADDER CONTROL? NO . IS THERE A CHANCE YOU COULD BE ? NO . HEMATOLOGY/LYMPH: DO YOU TAKE ANY BLOOD THINNERS? (FOR EXAMPLE- COUMADIN, PLAVIX, AGGRENOX, PLATEL, PRADAXA, OR XARELTO) NO . WHEN WAS YOUR LAST DOSE? DATE: TIME: . NEUROLOGY: HAVE YOU FALLEN IN THE PAST 6 MONTHS? NO . ANY NEW EXTREMITY NUMBNESS OR WEAKNESS? NO . CARDIOLOGY: DO YOU HAVE A PACEMAKER OR DEFIBRILLATOR? NO . RESPIRATORY: HAVE YOU BEEN SICK IN THE PAST WEEK? NO . FEVER NO . FLU LIKE SYMPTOMS? NO . COUGH NO . INTEGUMENTARY: DO YOU HAVE ANY RASHES OR OPEN SORES? NO . ALLERGIC/IMMUNO: ARE YOU ALLERGIC TO SHELLFISH OR IV DYE? NO . ANY NEW ALLERGIES? NO . PSYCHIATRIC: DO YOU HAVE THOUGHTS OF HURTING YOURSELF OR SOMEONE ELSE? NO . ARE YOU ABUSED, NEGLECTED, OR IN AN UNSAFE ENVIRONMENT? NO . ENDOCRINOLOGY: ARE YOU DIABETIC? YES . OTHER: DO YOU NEED ANY PRESCRIPTIONS? YES . IF YES, PLEASE LIST: ____ . ANY NEW PROBLEMS WITH YOUR MEDICATIONS? NO . WHEN DID YOU LAST EAT? ____ . WHEN DID YOU LAST DRINK? ____ . WHAT DID YOU LAST DRINK? ____ . NAME OF PERSON DRIVING YOU HOME? ____ . DO YOU HAVE ANY OTHER QUESTIONS OR CONCERNS NO . VITAL SIGNS WT 237.0 LBS, HT 68 IN, BMI 36.03 INDEX, BP 144/79 MM HG, HR 82 /MIN, RR 18 /MIN, TEMP 98.5 F, OXYGEN SAT % 97%, REVIEWED BY: MARCO ANTONIO. EXAMINATION GENERAL EXAMINATION: PSYCHALERT , ORIENTED X 3 , APPROPRIATE MOOD AND AFFECT . LUNGS:LUNG SOUNDS ARE CLEAR, NO WHEEZES RALES OR RHONCHI. HEART:HEART RATE REGULAR. MUSCULOSKELETAL:MUSCLE STRENGTH TESTING 5/5 BILATERAL LOWER EXTREMITIES. RISES EASILY TO STANDING POSITION. POSTURE UPRIGHT. GAIT WIDEBASED, NONANTALGIC. MILD TENDERNESS OVER LUMBOSACRAL AXIS. , TRIGGER POINTS AND TIGHT FIBROUS BANDS OVER LUMBOSACRAL PARAVERTEBRAL MUSCLES. . 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 CLINICAL NOTES: REVIEWED WITH PATIENT THAT BECAUSE SHE DID NOT BRING HER MEDS AND COME TO THE CLINIC DIRECTED ON OR 10/22/16 AND BECAUSE SHE THEN CANCELLED THE VISIT SHE SCEDULED ON 10/25/16 AND BECAUSE SHE HAD NOT BROUGHT HER MEDS TO THE CLINIC DIRECTED FOR THIS VISIT, I WOULD NO LONGER BE WRITING ANY SCRIPTS FOR CONTROLLED SUBSTANCES. PT STATES THAT SHE UNDERSTOOD THIS. DISCUSSION ENDED WITHOUT ANY ISSUES. PROCEDURE CODES FA211 ESTABILISHED PATIENT [facility] CHARGE G8730 PAIN ASSESS POS TOOL F/U PLAN DOC G8427 DOC MEDS VERIFIED W/PT OR RE DISPOSITION & COMMUNICATION FOLLOW UP 3 MONTHS (REASON: BACK PAIN) ELECTRONICALLY SIGNED BY MITUL MAYO ON 11/21/2016 AT 06:28 PM EDT DISCLAIMER : THIS IS A VISIT SUMMARY EXTRACTED FROM THE [employer] CHART. IT IS NOT A COPY OF THE [employer] PROGRESS NOTE. ELYSIA
== END ==
LOC: M PAIN 14:20
PROVIDERS: ATTEND Nurse Practitioner Family
DX: M96.1 Postlaminectomy syndrome, not elsewhere classified (principal); F95.2 Tourette's disorder; E11.9 Type 2 diabetes mellitus without complications; I10 Essential (primary) hypertension; K21.9 Gastro-esophageal reflux disease without esophagitis; M19.90 Unspecified osteoarthritis, unspecified site; J30.89 Other allergic rhinitis; Z88.2 Allergy status to sulfonamides; Z79.4 Long term (current) use of insulin; Z79.82 Long term (current) use of aspirin; Z79.891 Long term (current) use of opiate analgesic; Z79.899 Other long term (current) drug therapy

== ENCOUNTER → 2016-12-17 | Outpatient (REF) | payer MEDICARE, MEDICAID ==
[~2016-12-17] MED LIST changes: -BACL-67 PO; +BACL1TAB9 PO; -COLA100C3 PO; +COLA100C5 PO; +METF10004 PO; -OXYC1SOL PO; +OXYC1SOL3 PO; -RISP0.5T16 PO; +RISP0.5T21 PO
[2016-12-17 12:12] LABS: ALBUMIN 3.4 GM/DL (3.2-5.2); ALBUMIN/GLOBULIN RATIO 0.97 (1.00-1.93); ALKALINE PHOSPHATASE 68 U/L (45-117); ALT/SGPT 23 U/L (12-78); ANION GAP 8 MEQ/L (8-16); AST/SGOT 20 U/L (15-37); BILIRUBIN,TOTAL 0.5 MG/DL (0.2-1.0); BLOOD UREA NITROGEN 13 MG/DL (7-18); CALCIUM LEVEL 8.8 MG/DL (8.8-10.2); CARBON DIOXIDE LEVEL 29 MEQ/L (21-32); CHLORIDE LEVEL 103 MEQ/L (98-107); GLOMERULAR FILTRATION RATE > 60.0 (>45); GLUCOSE, FASTING 121 MG/DL (80-110); SODIUM LEVEL 140 MEQ/L (136-145); TOTAL PROTEIN 6.9 GM/DL (6.4-8.2)
== END ==
LOC: M SFHCPLAZ 08:40
PROVIDERS: ATTEND Nurse Practitioner Family
DX: E11.9 Type 2 diabetes mellitus without complications (principal)

== ENCOUNTER → 2017-01-27 | Outpatient (REF) | payer MEDICARE, MEDICAID | LOC: M SFHCPLAZ 13:58 | PROVIDERS: ATTEND Nurse Practitioner Family | DX: J02.9 Acute pharyngitis, unspecified (principal) | CPT/HCPCS: 87081; 87880; G0463 ==

== ENCOUNTER → 2017-02-05 | Outpatient (CLI) | payer MEDICARE, MEDICAID ==
--- NOTE | 2017-02-26 02:57 | ECWPNPC ---
PATIENT NAME: OMY ELIZABETH : 1955 GENDER: FEMALE VISIT DATE: 02/05/2017 DISCHARGE DATE: 02/05/17 1557 VISIT LOCKED DATE TIME: PHYSICIAN: RD HOUSE PHYSICIAN PAGER NO: TEXT VD [phone] RESOURCE: RD HOUSE REASON FOR APPOINTMENT 1. BACK PAIN HISTORY OF PRESENT ILLNESS HISTORY OF PRESENT ILLNESS: PAIN THE PATIENT DESCRIBES THE PAIN... FALL RISK SCREENING: SCREENING :NO FALLS IN THE PAST YEAR TODAY'S VISIT: NOTES: RATES PAIN TODAY 2/10 BACK SURGEON NOTES THAT THERE IS A BONE THAT IS NOT SECURE BETWEEN THE BRACKETS. PAIN IS WORSE WHEN LAYING ON THE LEFT SIDE. IS ABLE TO WALK DAILY.. CURRENT MEDICATIONS TAKING ATORVASTATIN CALCIUM 20 MG TABLET TAKE ONE TABLET BY MOUTH ONCE DAILY ORALLY ONCE A DAY TAKING NORVASC 5 MG TABLET 1 TABLET ORALLY ONCE A DAY TAKING ENALAPRIL MALEATE 20 MG TABLET 1 TABLET ORALLY TWICE A DAY TAKING HYDROCHLOROTHIAZIDE 25 MG TABLET TAKE ONE TABLET BY MOUTH ONCE DAILY ORALLY DAILY TAKING OMEPRAZOLE 40 MG CAPSULE DELAYED RELEASE 1 CAPSULE ORALLY ONCE A DAY TAKING GLIMEPIRIDE 4 MG TABLET 1 TABLET WITH BREAKFAST OR THE FIRST MAIN MEAL OF THE DAY ORALLY ONCE A DAY TAKING ASPIRIN 81 MG TABLET CHEWABLE 1 TABLET ORALLY DAILY TAKING VICTOZA 18 MG/3ML SOLUTION PEN-INJECTOR 0.6 ML SUBCUTANEOUS ONCE A DAY TAKING LANCETS . MISCELLANEOUS ONE LANCET SUBCUTANEOUS TWICE DAILY / DX : E11.65 TAKING GLUCOSE BLOOD . STRIP ONE STRIP FOR PRODIGY MACHINE CHECK BLOOD SUGAR TWICE A DAY DX E11.65 TAKING GABAPENTIN 300 MG CAPSULE 1 CAPSULE ORALLY THREE TIMES A DAY TAKING CENTRUM SILVER OTC TABLET DIRECTED ORALLY ONCE A DAY TAKING SEROQUEL 25 25 MG TABLET 1 TAB ORAL DAILY TAKING COLACE 100 MG CAPSULE 1 CAPSULE NEEDED ORALLY TWICE A DAY TAKING BD PEN NEEDLE ULTRAFINE 29G X 12.7MM MISCELLANEOUS DIRECTED SUBCUTANEOUSLY FOR VICTOZA PEN DAILY TAKING ZYRTEC ALLERGY 10 MG TABLET 1 TABLET NEEDED ORALLY AT BEDTIME TAKING FLONASE 50 MCG/ACT SUSPENSION 1 SPRAY IN EACH NOSTRIL NASALLY ONCE A DAY TAKING FORTAMET 1000 MG TABLET EXTENDED RELEASE 24 HOUR 2 TABLETS WITH EVENING MEAL ORALLY ONCE A DAY WITH EVENING MEAL NOT-TAKING RISPERDAL 0.5 MG TABLET 1 TABLET ORALLY ONCE A DAY MEDICATION LIST REVIEWED AND RECONCILED WITH THE PATIENT PAST MEDICAL HISTORY HYPERTENSION DM 2 ALLERGIC RHINITIS GERD ARTHRITIS EKG [facility] 02/14 EMG/NCS LES NCN 2011 NML. BILAT CTS XR LS SPINE 01/12 L 5 SPONDYLOLYSIS, GRADE 2 SPODYLOLITHESIS L5-S1 WITH DISC SPACES INTACT MRI LS SPINE 04/19/13 BILATERAL L5 SPONDYLOSIS, GRADE 2, 12 MM L5-S1 SPONDYLOLISTHESIS, BILATERAL L5-S1 NEURAL FORAMINAL NARROWING, DISC PROTRUSION L3-4- [facility]- DR YIN. [facility] PAIN CLINIC LEFT EAR PAIN- EVAL BY ENT 10/13 FELT TO BE TMJ RELATED TO LACK OF TEETH. MRI BRAIN- CHRONIC SMALL VESSEL ISCHEMIC DISEASE/NON SPECIFIC DEMYELINATION. TOURETTE'S SYNDROME- NCN ALLERGIES SEASONAL: WATERY EYES, SNEEZING: ALLERGY SULFA: GI DISTRESS: SIDE EFFECTS REVIEW OF SYSTEMS REVIEWED BY: PROVIDER: RD VELASQUEZ . CONSTITUTIONAL: ANY CHANGE IN YOUR MEDICAL CONDITION? GOING TO HAVE CARPAL TOLU SURGERY TOMORROW IN [place] . CHILLS NO . FEVER NO . INFECTION: DO YOU HAVE NEW INFECTIONS? NO . DO YOU HAVE HISTORY OF MRSA? NO . MUSCULOSKELETAL: ANY NEW PATTERNS OF PAIN OR NUMBNESS? YES, BACK IS HURTING MORE/ CANNOT LAY ON LEFT SIDE AND HARD TO GET UP FROM IT. WENT TO SURGEON AND HAS BEEN TOLD THAT A BONE HAS MOVED BUT THE RODS AND SCREWS ARE ALL OK. WAS TOLD IF IT DOES NOIT GET BETTER SHE WOULD NEED SURGERY FOR HER BACK. . GASTROENTEROLOGY: ANY NEW CHANGE IN BOWEL CONTROL? NO . GENITOURINARY: ANY NEW CHANGE IN BLADDER CONTROL? NO . IS THERE A CHANCE YOU COULD BE ? NO . HEMATOLOGY/LYMPH: DO YOU TAKE ANY BLOOD THINNERS? (FOR EXAMPLE- COUMADIN, PLAVIX, AGGRENOX, PLATEL, PRADAXA, OR XARELTO) NO . WHEN WAS YOUR LAST DOSE? DATE: TIME: . NEUROLOGY: HAVE YOU FALLEN IN THE PAST 6 MONTHS? NO . ANY NEW EXTREMITY NUMBNESS OR WEAKNESS? NO . CARDIOLOGY: DO YOU HAVE A PACEMAKER OR DEFIBRILLATOR? NO . RESPIRATORY: HAVE YOU BEEN SICK IN THE PAST WEEK? NO . FEVER NO . FLU LIKE SYMPTOMS? NO . COUGH NO . INTEGUMENTARY: DO YOU HAVE ANY RASHES OR OPEN SORES? NO . ALLERGIC/IMMUNO: ARE YOU ALLERGIC TO SHELLFISH OR IV DYE? NO . ANY NEW ALLERGIES? NO . PSYCHIATRIC: DO YOU HAVE THOUGHTS OF HURTING YOURSELF OR SOMEONE ELSE? NO . ARE YOU ABUSED, NEGLECTED, OR IN AN UNSAFE ENVIRONMENT? NO . ENDOCRINOLOGY: ARE YOU DIABETIC? YES - A1C HAS IMPROVED FROM 9 TO 6.9 . OTHER: DO YOU NEED ANY PRESCRIPTIONS? NO . IF YES, PLEASE LIST: ____ . ANY NEW PROBLEMS WITH YOUR MEDICATIONS? NO . WHEN DID YOU LAST EAT? ____ . WHEN DID YOU LAST DRINK? ____ . WHAT DID YOU LAST DRINK? ____ . NAME OF PERSON DRIVING YOU HOME? ____ . DO YOU HAVE ANY OTHER QUESTIONS OR CONCERNS NO . VITAL SIGNS WT 229.6 LBS, HT 68 IN, BMI 34.91 INDEX, BP 136/78 MM HG, HR 73 /MIN, RR 18 /MIN, TEMP 97.1 F, OXYGEN SAT % 97%, NA INITIALS SC 14:58, REVIEWED BY: NL. EXAMINATION GENERAL EXAMINATION: PSYCHALERT , ORIENTED X 3 , APPROPRIATE MOOD AND AFFECT . LUNGS:LUNG SOUNDS ARE CLEAR, NO WHEEZES RALES OR RHONCHI. HEART:HEART RATE REGULAR. MUSCULOSKELETAL:MUSCLE STRENGTH TESTING 5/5 BILATERAL LOWER EXTREMITIES. RISES EASILY TO STANDING POSITION. POSTURE UPRIGHT. GAIT WIDEBASED, NONANTALGIC. MILD TENDERNESS OVER LUMBOSACRAL AXIS. , TRIGGER POINTS AND TIGHT FIBROUS BANDS OVER LUMBOSACRAL PARAVERTEBRAL MUSCLES. . 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 PROCEDURE CODES FA211 ESTABILISHED PATIENT [facility]AC[facility] CHARGE G8730 PAIN ASSESS POS TOOL F/U PLAN DOC G8427 DOC MEDS VERIFIED W/PT OR RE DISPOSITION & COMMUNICATION FOLLOW UP 2-3 MONTHS (REASON: BACK PAIN) ELECTRONICALLY SIGNED BY MITUL MAYO ON 02/25/2017 AT 05:16 PM EDT DISCLAIMER : THIS IS A VISIT SUMMARY EXTRACTED FROM THE [employer] CHART. IT IS NOT A COPY OF THE [employer] PROGRESS NOTE. MTDD
== END ==
LOC: M PAIN 14:30
PROVIDERS: ATTEND Nurse Practitioner Family
DX: M96.1 Postlaminectomy syndrome, not elsewhere classified (principal); F95.2 Tourette's disorder; I10 Essential (primary) hypertension; E11.9 Type 2 diabetes mellitus without complications; K21.9 Gastro-esophageal reflux disease without esophagitis; M19.90 Unspecified osteoarthritis, unspecified site; J30.2 Other seasonal allergic rhinitis; Z88.2 Allergy status to sulfonamides; Z79.82 Long term (current) use of aspirin; Z79.899 Other long term (current) drug therapy

== ENCOUNTER → 2017-03-14 | Outpatient (REF) | payer MEDICARE, MEDICAID ==
[2017-03-14 12:45] LABS: ALBUMIN 3.6 GM/DL (3.2-5.2); ALBUMIN/GLOBULIN RATIO 0.95 (1.00-1.93); ALKALINE PHOSPHATASE 80 U/L (45-117); ALT/SGPT 23 U/L (12-78); ANION GAP 9 MEQ/L (8-16); AST/SGOT 17 U/L (15-37); BILIRUBIN,TOTAL 0.6 MG/DL (0.2-1.0); BLOOD UREA NITROGEN 11 MG/DL (7-18); CALCIUM LEVEL 9.5 MG/DL (8.8-10.2); CARBON DIOXIDE LEVEL 32 MEQ/L (21-32); CHLORIDE LEVEL 99 MEQ/L (98-107); CREATININE FOR GFR 0.81 MG/DL (0.55-1.02); GLOMERULAR FILTRATION RATE > 60.0 (>45); GLUCOSE, FASTING 87 MG/DL (80-110); POTASSIUM SERUM 4.4 MEQ/L (3.5-5.1); SODIUM LEVEL 140 MEQ/L (136-145); TOTAL PROTEIN 7.4 GM/DL (6.4-8.2)
== END ==
LOC: M SFHCPLAZ 08:31
PROVIDERS: ATTEND Nurse Practitioner Family
DX: E78.5 Hyperlipidemia, unspecified (principal); E11.9 Type 2 diabetes mellitus without complications

== ENCOUNTER → 2017-05-20 | Outpatient (CLI) | payer MEDICARE, MEDICAID | LOC: M PAIN 10:30 | DX: G89.29 Other chronic pain (principal); M96.1 Postlaminectomy syndrome, not elsewhere classified; F95.2 Tourette's disorder; I10 Essential (primary) hypertension; E11.9 Type 2 diabetes mellitus without complications; J30.9 Allergic rhinitis, unspecified; K21.9 Gastro-esophageal reflux disease without esophagitis; M19.90 Unspecified osteoarthritis, unspecified site; Z79.4 Long term (current) use of insulin; Z79.82 Long term (current) use of aspirin; Z79.899 Other long term (current) drug therapy; Z88.2 Allergy status to sulfonamides | CPT/HCPCS: G0463 ==

== ENCOUNTER 2017-06-06 06:37 | Day surgery (SDC) | payer MEDICARE, MEDICAID ==
[2017-06-06] MEDS: NS 1,000 ML IV (07:09)
[2017-06-06] MEDS ORDERED: fentaNYL 100 MCG/2 ML INJECTION (J3010) As Ordered (07:25)
[2017-06-06] MEDS ORDERED: PROPOFOL 500 MG/50 ML VIAL As Ordered (07:27)
[2017-06-06] MEDS ORDERED: LIDOCAINE 2% INJ 100 MG/5 ML SDV (FOR ANES.) As Ordered (07:31)
[2017-06-06 07:33] LABS: BEDSIDE GLUCOSE 99 MG/DL (80-115)
== END 2017-06-06 09:10 | disposition home or self-care (01) ==
LOC: M OPP 06:37
DX: Z12.11 Encounter for screening for malignant neoplasm of colon (principal); K57.30 Diverticulosis of large intestine without perforation or abscess without bleeding; R13.10 Dysphagia, unspecified; K29.70 Gastritis, unspecified, without bleeding; K22.8 Other specified diseases of esophagus; I10 Essential (primary) hypertension; E11.9 Type 2 diabetes mellitus without complications; K21.9 Gastro-esophageal reflux disease without esophagitis; G47.00 Insomnia, unspecified; F95.2 Tourette's disorder; Z79.899 Other long term (current) drug therapy; Z79.84 Long term (current) use of oral hypoglycemic drugs; Z88.2 Allergy status to sulfonamides; Z90.49 Acquired absence of other specified parts of digestive tract
CPT/HCPCS: G0121

== ENCOUNTER → 2017-06-20 | Outpatient (REF) | payer MEDICARE, MEDICAID ==
[2017-06-20 13:17] LABS: ALBUMIN 3.5 GM/DL (3.2-5.2); ALBUMIN/GLOBULIN RATIO 0.95 (1.00-1.93); ALKALINE PHOSPHATASE 79 U/L (45-117); ALT/SGPT 20 U/L (12-78); ANION GAP 6 MEQ/L (8-16); AST/SGOT 17 U/L (7-37); BILIRUBIN,TOTAL 0.5 MG/DL (0.2-1.0); BLOOD UREA NITROGEN 11 MG/DL (7-18); CALCIUM LEVEL 8.7 MG/DL (8.8-10.2); CARBON DIOXIDE LEVEL 33 MEQ/L (21-32); CHLORIDE LEVEL 105 MEQ/L (98-107); CREATININE FOR GFR 0.81 MG/DL (0.55-1.02); GLOMERULAR FILTRATION RATE > 60.0 (>45); GLUCOSE, FASTING 123 MG/DL (80-110); POTASSIUM SERUM 4.6 MEQ/L (3.5-5.1); SODIUM LEVEL 144 MEQ/L (136-145); TOTAL PROTEIN 7.2 GM/DL (6.4-8.2)
[2017-06-20 15:30] LABS: ESTIMATED AVERAGE GLUCOSE 157 MG/DL (60-110); HEMOGLOBIN A1c 7.1 %
== END ==
LOC: M SFHCPLAZ 08:43
DX: E11.9 Type 2 diabetes mellitus without complications (principal)
CPT/HCPCS: 80053

== ENCOUNTER → 2017-07-21 | Outpatient (CLI) | payer MEDICARE, MEDICAID | LOC: M PAIN 10:30 | DX: M96.1 Postlaminectomy syndrome, not elsewhere classified (principal); F95.2 Tourette's disorder; I10 Essential (primary) hypertension; E11.65 Type 2 diabetes mellitus with hyperglycemia; K21.9 Gastro-esophageal reflux disease without esophagitis; J30.9 Allergic rhinitis, unspecified; E78.5 Hyperlipidemia, unspecified; Z79.82 Long term (current) use of aspirin; Z79.84 Long term (current) use of oral hypoglycemic drugs; Z79.899 Other long term (current) drug therapy; Z88.2 Allergy status to sulfonamides | CPT/HCPCS: G0463 ==

== ENCOUNTER → 2017-08-14 | Outpatient (REF) | payer MEDICARE, MEDICAID ==
[2017-08-14 12:51] LABS: ALBUMIN 3.4 GM/DL (3.2-5.2); ALBUMIN/GLOBULIN RATIO 0.94 (1.00-1.93); ALKALINE PHOSPHATASE 78 U/L (45-117); ALT/SGPT 25 U/L (12-78); ANION GAP 9 MEQ/L (8-16); AST/SGOT 21 U/L (7-37); BILIRUBIN,TOTAL 0.6 MG/DL (0.2-1.0); BLOOD UREA NITROGEN 14 MG/DL (7-18); CALCIUM LEVEL 8.9 MG/DL (8.8-10.2); CARBON DIOXIDE LEVEL 29 MEQ/L (21-32); CHLORIDE LEVEL 103 MEQ/L (98-107); CHOLESTEROL LEVEL 123 MG/DL (<200); CHOLESTEROL RISK RATIO 2.157 (<5); CREATININE FOR GFR 0.72 MG/DL (0.55-1.30); GLOMERULAR FILTRATION RATE > 60.0 (>45); GLUCOSE, FASTING 115 MG/DL (70-100); HDL CHOLESTEROL 57 MG/DL (>40); LDL CHOLESTEROL 35.2 MG/DL (<100); NON-HDL-C 66 MG/DL; POTASSIUM SERUM 4.6 MEQ/L (3.5-5.1); SODIUM LEVEL 141 MEQ/L (136-145); TRIGLYCERIDES LEVEL 154 MG/DL (<150)
[2017-08-14 13:21] LABS: ESTIMATED AVERAGE GLUCOSE 140 MG/DL (60-110); HEMOGLOBIN A1c 6.5 %
== END ==
LOC: M SFHCPLAZ 09:27
DX: E11.9 Type 2 diabetes mellitus without complications (principal); E78.5 Hyperlipidemia, unspecified
CPT/HCPCS: 80053

== ENCOUNTER → 2017-08-15 | Outpatient (REF) | payer MEDICARE, MEDICAID | LOC: M SFHCPLAZ 16:32 | DX: L72.0 Epidermal cyst (principal) | CPT/HCPCS: 88305 ==

== ENCOUNTER → 2017-08-28 | Outpatient (CLI) | payer MEDICARE, MEDICAID | LOC: M WHC 14:09 | DX: Z12.31 Encounter for screening mammogram for malignant neoplasm of breast (principal) | CPT/HCPCS: 77067 ==

== ENCOUNTER → 2017-09-25 | Outpatient (REF) | payer MEDICARE, MEDICAID ==
[2017-09-25 16:45] LABS: HEMATOCRIT 38.5 % (36.0-47.0); HEMOGLOBIN 12.3 g/dl (12.0-15.5); MEAN CORPUSCULAR HEMOGLOBIN 27.8 pg (27.0-33.0); MEAN CORPUSCULAR HGB CONC 31.9 g/dl (32.0-36.5); MEAN CORPUSCULAR VOLUME 86.9 fl (80.0-96.0); PLATELET COUNT, AUTOMATED 299 10^3/uL (150-450); RED BLOOD COUNT 4.43 10^6/uL (4.00-5.40); RED CELL DISTRIBUTION WIDTH 13.5 % (11.5-14.5); WHITE BLOOD COUNT 8.7 10^3/uL (4.0-10.0)
[2017-09-25 17:22] LABS: ANION GAP 5 MEQ/L (8-16); BLOOD UREA NITROGEN 17 MG/DL (7-18); CALCIUM LEVEL 8.9 MG/DL (8.8-10.2); CARBON DIOXIDE LEVEL 31 MEQ/L (21-32); CHLORIDE LEVEL 107 MEQ/L (98-107); CREATININE FOR GFR 0.78 MG/DL (0.55-1.30); GLOMERULAR FILTRATION RATE > 60.0 (>45); GLUCOSE, FASTING 57 MG/DL (70-100); POTASSIUM SERUM 4.5 MEQ/L (3.5-5.1); SODIUM LEVEL 143 MEQ/L (136-145)
[2017-09-25 17:29] LABS: PROTHROMBIN TIME 13.3 SECONDS (12.4-14.5)
[2017-09-25 17:30] LABS: PARTIAL THROMBOPLASTIN TIME 30.6 SECONDS (26.8-37.9)
== END ==
LOC: M SFHCPLAZ 15:10
DX: Z01.818 Encounter for other preprocedural examination (principal); G56.01 Carpal tunnel syndrome, right upper limb; Z79.899 Other long term (current) drug therapy
CPT/HCPCS: 80048

== ENCOUNTER → 2017-10-17 | Outpatient (CLI) | payer MEDICARE, MEDICAID | LOC: M PAIN 09:45 | DX: G89.29 Other chronic pain (principal); M96.1 Postlaminectomy syndrome, not elsewhere classified; F95.2 Tourette's disorder; I10 Essential (primary) hypertension; E11.9 Type 2 diabetes mellitus without complications; J30.2 Other seasonal allergic rhinitis; K21.9 Gastro-esophageal reflux disease without esophagitis; M51.26 Other intervertebral disc displacement, lumbar region; Z79.899 Other long term (current) drug therapy; Z88.2 Allergy status to sulfonamides; Z79.84 Long term (current) use of oral hypoglycemic drugs | CPT/HCPCS: 84443 ==

== ENCOUNTER → 2017-10-17 | Outpatient (CLI) | payer MEDICARE, MEDICAID ==
[2017-10-17 11:47] LABS: FREE THYROXINE INDEX 3.4 % (1.3-4.8); T UPTAKE 30 % (30-39); THYROID STIMULATING HORMONE 0.802 uIU/ML (0.358-3.740); THYROXINE (T4) 11.2 UG/DL (4.5-12.0)
== END ==
LOC: M LAB 10:37
DX: H16.223 Keratoconjunctivitis sicca, not specified as Sjogren's, bilateral (principal); Z79.899 Other long term (current) drug therapy
CPT/HCPCS: 84443

== ENCOUNTER 2017-11-20 08:08 | Day surgery (SDC) | payer MEDICARE, MEDICAID ==
[2017-11-20] MEDS ORDERED: NS 1,000 ML IV (08:15)
[2017-11-20] MEDS ORDERED: LIDOCAINE 2% INJ 100 MG/5 ML SDV (FOR ANES.) As Ordered (08:38)
[2017-11-20] MEDS ORDERED: PROPOFOL 200 MG/20 ML VIAL As Ordered ×3 (08:38→11:41)
[2017-11-20] MEDS ORDERED: fentaNYL 100 MCG/2 ML INJECTION (J3010) As Ordered (09:54)
[2017-11-20] MEDS ORDERED: PHENYLephrine HCL 500 MCG/5 ML (100MCG/ML) SYRINGE (J2370) As Ordered (11:00)
== END 2017-11-20 12:30 | disposition home or self-care (01) ==
LOC: M OPP 08:08
DX: Z12.11 Encounter for screening for malignant neoplasm of colon (principal); K64.8 Other hemorrhoids; K57.30 Diverticulosis of large intestine without perforation or abscess without bleeding; R13.10 Dysphagia, unspecified; K29.70 Gastritis, unspecified, without bleeding; K22.8 Other specified diseases of esophagus; I10 Essential (primary) hypertension; E11.9 Type 2 diabetes mellitus without complications; F95.2 Tourette's disorder; R05 Cough; K21.9 Gastro-esophageal reflux disease without esophagitis; M19.90 Unspecified osteoarthritis, unspecified site; Z98.1 Arthrodesis status; Z88.2 Allergy status to sulfonamides; Z79.82 Long term (current) use of aspirin; Z79.899 Other long term (current) drug therapy; Z79.84 Long term (current) use of oral hypoglycemic drugs; Z80.8 Family history of malignant neoplasm of other organs or systems; Z80.6 Family history of leukemia
CPT/HCPCS: G0121

== ENCOUNTER → 2017-11-21 | Outpatient (REF) | payer MEDICARE, MEDICAID ==
[2017-11-21 11:45] LABS: ALBUMIN 3.4 GM/DL (3.2-5.2); ALBUMIN/GLOBULIN RATIO 1.03 (1.00-1.93); ALKALINE PHOSPHATASE 75 U/L (45-117); ALT/SGPT 25 U/L (12-78); ANION GAP 8 MEQ/L (8-16); AST/SGOT 16 U/L (7-37); BILIRUBIN,TOTAL 0.5 MG/DL (0.2-1.0); BLOOD UREA NITROGEN 9 MG/DL (7-18); CALCIUM LEVEL 8.6 MG/DL (8.8-10.2); CARBON DIOXIDE LEVEL 31 MEQ/L (21-32); CHLORIDE LEVEL 105 MEQ/L (98-107); CREATININE FOR GFR 0.85 MG/DL (0.55-1.30); GLOMERULAR FILTRATION RATE > 60.0 (>45); GLUCOSE, FASTING 93 MG/DL (70-100); POTASSIUM SERUM 4.2 MEQ/L (3.5-5.1); SODIUM LEVEL 144 MEQ/L (136-145); TOTAL PROTEIN 6.7 GM/DL (6.4-8.2)
[2017-11-21 12:10] LABS: MALB URINE SIEMENS 8.5 MG/L; MAU/CREAT RATIO 6.9 MCG/MG (0.0-30.0)
[2017-11-21 12:19] LABS: ESTIMATED AVERAGE GLUCOSE 140 MG/DL (60-110); HEMOGLOBIN A1c 6.5 %
== END ==
LOC: M SFHCPLAZ 07:55
DX: E11.9 Type 2 diabetes mellitus without complications (principal); E78.5 Hyperlipidemia, unspecified
CPT/HCPCS: 80053

== ENCOUNTER → 2018-03-03 | Outpatient (CLI) | payer MEDICARE, MEDICAID | LOC: M PAIN 10:45 | DX: M96.1 Postlaminectomy syndrome, not elsewhere classified (principal); F95.2 Tourette's disorder; I10 Essential (primary) hypertension; E11.9 Type 2 diabetes mellitus without complications; K21.9 Gastro-esophageal reflux disease without esophagitis; M19.90 Unspecified osteoarthritis, unspecified site; J30.2 Other seasonal allergic rhinitis; Z79.84 Long term (current) use of oral hypoglycemic drugs; Z79.82 Long term (current) use of aspirin; Z79.899 Other long term (current) drug therapy; Z88.2 Allergy status to sulfonamides | CPT/HCPCS: G0463 ==

== ENCOUNTER → 2018-04-22 | Outpatient (REF) | payer MEDICARE, MEDICAID ==
[2018-04-22 12:40] LABS: ALBUMIN 3.5 GM/DL (3.2-5.2); ALBUMIN/GLOBULIN RATIO 0.97 (1.00-1.93); ALKALINE PHOSPHATASE 82 U/L (45-117); ALT/SGPT 32 U/L (12-78); ANION GAP 6 MEQ/L (8-16); AST/SGOT 24 U/L (7-37); BILIRUBIN,TOTAL 0.8 MG/DL (0.2-1.0); BLOOD UREA NITROGEN 14 MG/DL (7-18); CALCIUM LEVEL 8.7 MG/DL (8.8-10.2); CARBON DIOXIDE LEVEL 31 MEQ/L (21-32); CHLORIDE LEVEL 103 MEQ/L (98-107); CREATININE FOR GFR 0.85 MG/DL (0.55-1.30); GLOMERULAR FILTRATION RATE > 60.0 (>45); GLUCOSE, FASTING 131 MG/DL (70-100); POTASSIUM SERUM 4.3 MEQ/L (3.5-5.1); SODIUM LEVEL 140 MEQ/L (136-145); TOTAL PROTEIN 7.1 GM/DL (6.4-8.2)
[2018-04-22 13:16] LABS: ESTIMATED AVERAGE GLUCOSE 160 MG/DL (60-110); HEMOGLOBIN A1c 7.2 %
== END ==
LOC: M SFHCPLAZ 08:11
DX: E11.9 Type 2 diabetes mellitus without complications (principal)
CPT/HCPCS: 80053

== ENCOUNTER → 2018-07-30 | Outpatient (CLI) | payer MEDICARE, MEDICAID ==
[~2018-07-30] MED LIST changes: +AMLO5TAB6 PO; +FISH7.5C PO; +GABA-843 PO; +GABA-845 PO; +OMEP40CA2 PO; +RANI15TA PO; +TIZA4CAP PO; -TIZA4CAP3 PO; +VICT18IN SC; +ZYRT10CA5 PO; -ZYRT10TA2 PO
--- NOTE | 2018-07-30 16:39 | REP ---
COOKIE SWALLOW The procedure was performed under the direct supervision of Dr. Neff. The procedure was performed with Salima Rico from speech pathology present. 5 ml aliquots of pudding, fruit, thin, solid and a barium tablet was administered. There is no evidence of penetration or aspiration. The detailed report of this examination will be provided by speech pathology. 1 minute of fluoroscopy time was utilized for this procedure. Reviewed by BISMARK Kruse 07/30/2018 03:42 P Electronically Signed by Edgar Neff MD 07/30/2018 04:30 P
== END ==
LOC: M ST 12:02
PROVIDERS: ATTEND Internal Medicine Gastroenterology
DX: R13.10 Dysphagia, unspecified (principal)

== ENCOUNTER → 2018-07-30 | Outpatient (RCR) | payer MEDICARE, MEDICAID ==
--- NOTE | 2018-07-30 16:00 | NUR ---
Pt seen for modified barium swallow study d/t c/o intermittent "choking and coughing" episodes. Swallow function presented as adequate. Education provided regarding GERD (Commitment to taking meds routinely, avoiding items that trigger agitation, avoiding bending over, remaining upright following meals for 45-60 minutes, bed positioned on an incline and avoiding tight clothing around the abdomen). Addendum: 07/30/18 at 1602 by GALI THURMAN [facility] Amended: Links added.
== END ==
LOC: M PT 07-16 12:11
PROVIDERS: ATTEND Psychiatry & Neurology Neurology
DX: Z51.89 Encounter for other specified aftercare (principal); M25.512 Pain in left shoulder

== ENCOUNTER 2018-08-20 12:05 | Outpatient (RCR) | payer MEDICARE, MEDICAID | END 2018-08-30 | LOC: M PT 12:05 | PROVIDERS: ATTEND Psychiatry & Neurology Neurology | DX: Z51.89 Encounter for other specified aftercare (principal); M25.512 Pain in left shoulder ==

== ENCOUNTER → 2018-08-20 | Outpatient (CLI) | payer MEDICARE, MEDICAID ==
--- NOTE | 2018-08-20 13:04 | REP ---
MRI lumbar spine without contrast: History: Lumbar radiculopathy. The patient is status post lumbar spine surgery in 2013. Progressive low back pain. Comparison MRI study is from April 19, 2013. Comparison is made with CT imaging from November 04, 2016. Technique: Sagittal and axial T1 and T2-weighted scans are acquired in the usual fashion with and without fat saturation. Sequences include spin echo, turbo spin-echo, and STIR imaging sequences. MRI findings: Lumbar vertebral body heights are preserved. Cortical and medullary bone signal intensity are normal. There is a grade 1 L5-S1 spondylolisthesis measuring 10 mm. This is a little less prominent than on the pre-fusion 2012 prior MRI study. The patient is status post transpedicular justen placement and dorsal fusion across the L4, L5 and S1 levels. A laminectomy has been performed at L4 and L5 and S1. Alignment is otherwise normal. The conus medullaris remains normal in position and appearance at L1. There is minimal disc bulging at the T12-L1 disc level unchanged. At L1, L2, there is no significant finding. At L2-3, the posterior disc margin bulges very slightly. There is mild facet hypertrophy bilaterally. At L3-4, there is disc narrowing and moderate diffuse disc bulging. This appears more prominent on axial images than it did in 2013. There is mild central canal stenosis. There is ligamentum flavum hypertrophy and facet hypertrophy which participate in the central canal narrowing. The ligamentum flavum and facet hypertrophy is more pronounced. No neural foraminal narrowing is seen. At L4-5, there is no evidence of thecal sac compression. No disc protrusion is seen. No neural foraminal narrowing is seen. At L5-S1, there is no thecal sac compression. There is bilateral neural foraminal narrowing related to this spondylolisthesis. This is unchanged from 2013 prior study. Impression: Status post laminectomy and fusion L4-S1 bilaterally. Stabilized L5-S1 spondylolisthesis. Bilateral L5-S1 neural foraminal narrowing unchanged. Progressive disc bulging and facet and ligamentum flavum hypertrophy at L3-4 producing central canal stenosis. Electronically Signed by Edgar Neff MD 08/20/2018 01:39 P
== END ==
LOC: M RAD 10:58
PROVIDERS: ATTEND Physician Assistant
DX: M54.16 Radiculopathy, lumbar region (principal); M51.26 Other intervertebral disc displacement, lumbar region; Z98.1 Arthrodesis status; M48.061 Spinal stenosis, lumbar region without neurogenic claudication; M43.16 Spondylolisthesis, lumbar region

== ENCOUNTER → 2018-08-21 | Outpatient (CLI) | payer MEDICARE, MEDICAID ==
--- NOTE | 2018-08-26 01:01 | ECWPNPC ---
PATIENT NAME: MOY ELIZABETH : 1955 GENDER: FEMALE VISIT DATE: 08/21/2018 DISCHARGE DATE: 08/21/18 1308 VISIT LOCKED DATE TIME: PHYSICIAN: FRANK REESE RESOURCE: FRANK REESE REASON FOR APPOINTMENT 1. SW PT, BACK PAIN HISTORY OF PRESENT ILLNESS HISTORY OF PRESENT ILLNESS: PAIN THE PATIENT DESCRIBES THE PAINDURING THE LAST MONTH SEVERITY - PAIN SCORE OF2/10 62 YEAR OLD FEMALE WITH A HX OF LOWER BACK PAIN AND IS UNDER THE CARE OF ORTHOPEDIC SURGEON IN [place]. SHE HAS HAD A RECENT MRI OF LUMBAR SPINE. SHE HAS NOT BEEN RECEIIVNG ANY PAIN MEDICATION FROM OUR PRACTICE AND DOES NOT WOISH TO RECEIVE ANY INJECTIONS. SHE IS UNSURE IF TO CONTINUE WITH OUR PRACTICE. FALL RISK SCREENING: SCREENING : NO FALLS IN THE PAST YEAR. CURRENT MEDICATIONS TAKING NORVASC 5 MG TABLET 1 TABLET ORALLY ONCE A DAY TAKING FLONASE 50 MCG/ACT SUSPENSION 1 SPRAY IN EACH NOSTRIL NASALLY ONCE A DAY NEEDED TAKING GABAPENTIN 400 MG CAPSULE 1 CAPSULE ORALLY THREE TIMES A DAY, NOTES: ONLY TAKES ONE/DAY TAKING GLUCOSE BLOOD . STRIP ONE STRIP FOR [employer] MACHINE CHECK BLOOD SUGAR TWICE A DAY DX E11.65 TAKING CENTRUM SILVER OTC TABLET DIRECTED ORALLY ONCE A DAY TAKING BD PEN NEEDLE ULTRAFINE 29G X 12.7MM MISCELLANEOUS DIRECTED SUBCUTANEOUSLY FOR VICTOZA PEN DAILY TAKING FISH OIL 1000 MG CAPSULE 1 CAPSULE ORALLY ONCE A DAY TAKING PROBIOTIC ACIDOPHILUS - TABLET 1 TAB ORALLY DAILY TAKING LANCETS . MISCELLANEOUS ONE LANCET SUBCUTANEOUS TWICE DAILY / DX : E11.65 TAKING PRODIGY NO CODING BLOOD GLUC - STRIP USE DIRECTED TWICE DAILY TAKING HYDROCHLOROTHIAZIDE 25 MG TABLET TAKE ONE TABLET BY MOUTH ONCE DAILY DAILY ORALLY 90 DAY(S) ORALLY ONCE A DAY TAKING ASPIRIN 81 MG TABLET CHEWABLE 1 TABLET ORALLY DAILY TAKING OMEPRAZOLE 40 MG CAPSULE DELAYED RELEASE 1 CAPSULE ORALLY ONCE A DAY TAKING ZANTAC 150 MG TABLET 1 TABLET AT BEDTIME ONCE A DAY PRN BREAK THROUGH REFLUX ORALLY 90 DAY(S) TAKING ZYRTEC ALLERGY 10 MG TABLET 1 TABLET NEEDED AT BEDTIME ORALLY 90 DAY(S) TAKING METFORMIN HCL 1000 MG TABLET 1 TABLET WITH MEALS TWICE A DAY ORALLY 90 DAY(S) , NOTES: TAKES 2000 AT NIGHT TAKING ATORVASTATIN CALCIUM 20 MG TABLET TAKE ONE TABLET BY MOUTH ONCE DAILY ONCE A DAY ORALLY 90 DAY(S) ONCE A DAY ORALLY 90 DAYS TAKING ENALAPRIL MALEATE 20 MG TABLET 1 TABLET TWICE A DAY ORALLY 90 DAY(S) ONCE A DAY ORALLY 90 DAY(S) TAKING EMBRACE LANCETS ULTRA THIN 30G - MISCELLANEOUS ONE LANCET TWICE DAILY / DX : E11.65 SUBCUTANEOUS 90 DAY(S) - - TAKING COLACE 100 MG CAPSULE 1 CAPSULE NEEDED TWICE A DAY ORALLY 90 DAY(S) - - TAKING VICTOZA 18 MG/3ML SOLUTION PEN-INJECTOR DIRECTED 1.8 MG SC Q DAY SUBCUTANEOUS 90 DAY(S) SUBCUTANEOUS A- TAKING GLIMEPIRIDE 4 MG TABLET 1 TABLET WITH BREAKFAST OR THE FIRST MAIN MEAL OF THE DAY ORALLY ONCE A DAY TAKING SENNA 30 MG MISCELLANEOUS DIRECTED ORALLY NOT-TAKING BACLOFEN 10 MG TABLET 1 TABLET WITH FOOD OR MILK ORALLY THREE TIMES A DAY NOT-TAKING NOVOFINE PLUS 32G X 4 MM MISCELLANEOUS DIRECTED SUBCUTANEOUSLY DAILY NOT-TAKING NORVASC 5 MG TABLET 1 TABLET ONCE A DAY ORALLY 90 DAY(S) UNKNOWN SEROQUEL 25 25 MG TABLET 1 TAB ORAL DAILY UNKNOWN GOODSENSE ASPIRIN 81 MG TABLET CHEWABLE 1 TABLET DAILY ORALLY 90 DAYS , NOTES: DUPLICATE MEDICATION LIST REVIEWED AND RECONCILED WITH THE PATIENT PAST MEDICAL HISTORY HYPERTENSION DM 2 ALLERGIC RHINITIS GERD ARTHRITIS EKG [facility] 02/14, [place] 09/25/17 EMG/NCS LES NCN 2012 NML. BILAT CTS XR LS SPINE 01/12 L 5 SPONDYLOLYSIS, GRADE 2 SPODYLOLITHESIS L5-S1 WITH DISC SPACES INTACT MRI LS SPINE 04/19/13 BILATERAL L5 SPONDYLOSIS, GRADE 2, 12 MM L5-S1 SPONDYLOLISTHESIS, BILATERAL L5-S1 NEURAL FORAMINAL NARROWING, DISC PROTRUSION L3-4- [facility]- DR YIN. [facility] PAIN CLINIC LEFT EAR PAIN- EVAL BY ENT 10/13 FELT TO BE TMJ RELATED TO LACK OF TEETH. MRI BRAIN- CHRONIC SMALL VESSEL ISCHEMIC DISEASE/NON SPECIFIC DEMYELINATION. TOURETTE'S SYNDROME- NCN ALLERGIES SEASONAL: WATERY EYES, SNEEZING - ALLERGY SULFA: GI DISTRESS - SIDE EFFECTS SURGICAL HISTORY NO PERSONAL OR FHX OF SEVERE REACTION TO ANESTHESIA LAP JULIANNE 2012 ANKLE SURG- LT 1993 YO/BSO 25 YO LUMBAR SPINE SURGERY DR YIN-SYR 11/13 COLO REINDL- DIVERTICULOSIS/INT HEMORRHOIDS. 01/09 UMBILICAL HERNIA REPAIR 01/2015 LEFT CARPAL TUNNEL 01/2017 RIGHT CARPAL TUNNEL 09/2017 COLONOSCOPY, SEVERE DIVERTICULOSIS 10/2017 ESOPHOGEAL BALLOON EXPANSION- UPPER GI 10/2017 FAMILY HISTORY FATHER: , 1990. THROAT CANCER, DIAGNOSED WITH CANCER MOTHER: , 1990 SIBLINGS: ALIVE 1 BROTHER(S) , 2 SISTER(S) . 1 BROTHER PASSED CANCER-2012\N1 SISTER PASSED FROM [place]-2016. SOCIAL HISTORY GENERAL: TOBACCO USE ARE YOU A:NONSMOKER BMI CARE GOAL FOLLOW-UP ABOVE NORMAL BMI FOLLOW-UPLIFESTYLE EDUCATION REGARDING DIET, WEIGHT MONITORING ALCOHOL SCREENING DID YOU HAVE A DRINK CONTAINING ALCOHOL IN THE PAST YEAR?NO POINTS0 INTERPRETATIONNEGATIVE RECREATIONAL DRUG USE DENIES. CAFFEINE 1-2/DAY. SEXUAL HX HAD SEX IN THE LAST 12 MONTHS (VAGINAL, ORAL, OR ANAL)?NO LMP:HYSTER HAVE YOU EVER HAD AN STD?NO HIV / HEP-C SCREENING HIV TEST OFFERED TO PATIENT:YES DATE OFFERED:08/30/2016 TEST ACCEPTED:NO REASON:PATIENT DECLINED JEHOVAH'S WITNESS [id number] RELIGION LANGUAGE LANGUAGES SPOKEN:CHINESE EDUCATION 10TH GRADE. 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 DIET: NO CONCENTRATED SWEETS.. EXERCISE: WALKING. MARITAL STATUS: BOYFRIEND, September--. OTHERS AT HOME: NONE. PAIN CLINIC PFS, CLERGY, PUBLIC HEALTH REFERRALS HAS THE PATIENT BEEN EDUCATED REGARDING HIS/HER PLAN OF CARE?YES HAS THE PATIENT BEEN EDUCATED REGARDING PAIN, THE RISK FOR PAIN, THE IMPORTANCE OF EFFECTIVE PAIN MANAGEMENT, AND THE PAIN ASSESSMENT PROCESS?YES ADVANCE DIRECTIVE ADVANCE DIRECTIVE DISCUSSED WITH PATIENT:YES PT DOES NOT WANT INFO AT THIS TIME REVIEWED WITH PT 03/03/18 1132 LAS. HOSPITALIZATION/MAJOR DIAGNOSTIC PROCEDURE RELATED TO SURGERIES REVIEW OF SYSTEMS REVIEWED BY: PROVIDER: ANDRZEJ Ambrocio CONSTITUTIONAL: ANY CHANGE IN YOUR MEDICAL CONDITION? NO . CHILLS NO . FEVER NO . INFECTION: DO YOU HAVE NEW INFECTIONS? NO . DO YOU HAVE HISTORY OF MRSA? NO . MUSCULOSKELETAL: ANY NEW PATTERNS OF PAIN OR NUMBNESS? BEEN HAVING INCREASED PAIN IN BACK WENT TO SEE SURGEON IN [place] AND HAS NEW MRI FOLLOW UP WITH THEM ON 09-02-18 TO DISCUSS MRI . GASTROENTEROLOGY: ANY NEW CHANGE IN BOWEL CONTROL? NO . GENITOURINARY: ANY NEW CHANGE IN BLADDER CONTROL? NO . IS THERE A CHANCE YOU COULD BE ? NO . HEMATOLOGY/LYMPH: DO YOU TAKE ANY BLOOD THINNERS? (FOR EXAMPLE- COUMADIN, PLAVIX, AGGRENOX, PLATEL, PRADAXA, OR XARELTO) NO . WHEN WAS YOUR LAST DOSE? DATE: TIME: . NEUROLOGY: HAVE YOU FALLEN IN THE PAST 12 MONTHS? NO . ANY NEW EXTREMITY NUMBNESS OR WEAKNESS? NO . CARDIOLOGY: DO YOU HAVE A PACEMAKER OR DEFIBRILLATOR? NO . RESPIRATORY: HAVE YOU BEEN SICK IN THE PAST WEEK? NO . FEVER NO . FLU LIKE SYMPTOMS? NO . COUGH NO . INTEGUMENTARY: DO YOU HAVE ANY RASHES OR OPEN SORES? NO . ALLERGIC/IMMUNO: ARE YOU ALLERGIC TO IV DYE? NO . ANY NEW ALLERGIES? NO . PSYCHIATRIC: DO YOU HAVE THOUGHTS OF HURTING YOURSELF OR SOMEONE ELSE? NO . ARE YOU ABUSED, NEGLECTED, OR IN AN UNSAFE ENVIRONMENT? NO . ENDOCRINOLOGY: ARE YOU DIABETIC? NO . OTHER: DO YOU NEED ANY PRESCRIPTIONS? NO . IF YES, PLEASE LIST: ____ . ANY NEW PROBLEMS WITH YOUR MEDICATIONS? NO . WHEN DID YOU LAST EAT? ____ . WHEN DID YOU LAST DRINK? ____ . WHAT DID YOU LAST DRINK? ____ . NAME OF PERSON DRIVING YOU HOME? ____ . DO YOU HAVE ANY OTHER QUESTIONS OR CONCERNS NO . VITAL SIGNS WT 242.2 LBS, HT 68 IN, BMI 36.82 INDEX, BP 144/67 MM HG, HR 72 /MIN, RR 18 /MIN, TEMP 97.7 F, OXYGEN SAT % 94%, SAFE IN ENV? (Y/N) YES, NA INITIALS AW 1044, REVIEWED BY: KG. EXAMINATION GENERAL EXAMINATION: GENERAL APPEARANCE:NO ACUTE DISTRESS, WELL NOURISHED AND HYDRATED. PSYCHAPPROPRIATE MOOD AND AFFECT . LUNGS:CLEAR TO AUSCULTATION BILATERALLY, NO WHEEZES, RHONCHI, RALES. HEART:NO MURMURS, REGULAR RATE AND RHYTHM. BACK: NO CVA TENDERNESS.FROM. ASSESSMENTS SPONDYLOSIS OF LUMBAR REGION WITHOUT MYELOPATHY OR RADICULOPATHY - M47.816 (PRIMARY) DORSALGIA, UNSPECIFIED - M54.9 TREATMENT SPONDYLOSIS OF LUMBAR REGION WITHOUT MYELOPATHY OR RADICULOPATHY CLINICAL NOTES: PATIENT IS UNDER CARE OF ORTHOPEDIC SURGEON IN [place] AND HAS F/U APPT ON 09/02/18. SHE DOES NOT WISH TO DISCUSS ANY PAIN PROCEDURES. PATIENT AGGREES SHE WILL CALL AND BOOK APPT WITH [facility] SHOULD SHE NEED ANY FURTHER TREATMENT.,ISTOP REGISTRY REVIEWED (REF # [id number] ). PROCEDURE CODES FA211 ESTABILISHED PATIENT [facility] FACILITY CHARGE DISPOSITION & COMMUNICATION FOLLOW UP PRN ELECTRONICALLY SIGNED BY EVA THACKER ON 08/25/2018 AT 12:20 PM EDT DISCLAIMER : THIS IS A VISIT SUMMARY EXTRACTED FROM THE [facility] CHART. IT IS NOT A COPY OF THE [facility] PROGRESS NOTE. ELYSIA
== END ==
LOC: M PAIN 10:45
PROVIDERS: ATTEND Nurse Practitioner Family
DX: M47.816 Spondylosis without myelopathy or radiculopathy, lumbar region (principal); M54.9 Dorsalgia, unspecified; I10 Essential (primary) hypertension; E11.9 Type 2 diabetes mellitus without complications; K21.9 Gastro-esophageal reflux disease without esophagitis; M19.90 Unspecified osteoarthritis, unspecified site; F95.2 Tourette's disorder; Z88.2 Allergy status to sulfonamides; Z79.82 Long term (current) use of aspirin; Z79.84 Long term (current) use of oral hypoglycemic drugs; Z79.899 Other long term (current) drug therapy

== ENCOUNTER → 2018-08-25 | Outpatient (CLI) | payer MEDICARE, MEDICAID ==
[2018-08-25 10:58] LABS: HEMOGLOBIN A1c 6.5 %
[2018-08-25 11:01] LABS: ALBUMIN 3.5 GM/DL (3.2-5.2); ALT/SGPT 24 U/L (12-78); BILIRUBIN,TOTAL 0.6 MG/DL (0.2-1.0); BLOOD UREA NITROGEN 18 MG/DL (7-18); CALCIUM LEVEL 8.8 MG/DL (8.8-10.2); CARBON DIOXIDE LEVEL 31 MEQ/L (21-32); CHLORIDE LEVEL 104 MEQ/L (98-107); CREATININE FOR GFR 0.78 MG/DL (0.55-1.30); GLOMERULAR FILTRATION RATE > 60.0 (>45); GLUCOSE, FASTING 102 MG/DL (70-100); POTASSIUM SERUM 4.4 MEQ/L (3.5-5.1); SODIUM LEVEL 140 MEQ/L (136-145); TOTAL PROTEIN 6.9 GM/DL (6.4-8.2)
== END ==
LOC: M LAB 08:49
PROVIDERS: ATTEND Nurse Practitioner Family
DX: E11.9 Type 2 diabetes mellitus without complications (principal); E78.5 Hyperlipidemia, unspecified

== ENCOUNTER → 2018-09-08 | Outpatient (CLI) | payer MEDICARE, MEDICAID ==
[~2018-09-08] MED LIST changes: -/BACL20TA PO; -/HCTZ25TA PO; -ASPI81TA PO; +BARIUM SULFATE 700 MG TABLET (E-Z-DISK) As Ordered ONE; +CHIL1CHW5 PO; +E-Z-PAQUE 96% w/w SUSP 176GM BTL As Ordered ONE; +HYDR-3644 PO; +LIQUID POLIBAR PLUS 105% w/v 1900ML BTL As Ordered ONE; +VARIBAR NECTAR 40% w/v 240ML SUSP BTL As Ordered ONE; +VARIBAR PUDDING 40% w/v 230ML TUBE As Ordered ONE
--- NOTE | 2018-09-08 09:37 | REP ---
Lumbar spine, two AP views: There are bilateral laminectomies at L4 and L5. There is surgical fusion at L4 - L5-L1 with bilateral pedicle screws and stabilization rods. Vertebral body heights and alignment are normal on these AP views. Mineralization is normal. There are no calcifications except for phleboliths superimposed over the pubic symphysis. The visualized bowel gas pattern is normal. Impression: Normal bowel gas pattern. Postsurgical changes as described. Phleboliths. Electronically Signed by Cyrus Guerin MD 09/08/2018 09:28 A
== END ==
LOC: M RAD 08:11
PROVIDERS: ATTEND Internal Medicine Gastroenterology
DX: K59.00 Constipation, unspecified (principal)

== ENCOUNTER → 2018-09-15 | Outpatient (CLI) | payer MEDICARE, MEDICAID ==
[~2018-09-15] MED LIST changes: -BARIUM SULFATE 700 MG TABLET (E-Z-DISK) As Ordered ONE; -E-Z-PAQUE 96% w/w SUSP 176GM BTL As Ordered ONE; -LIQUID POLIBAR PLUS 105% w/v 1900ML BTL As Ordered ONE; -VARIBAR NECTAR 40% w/v 240ML SUSP BTL As Ordered ONE; -VARIBAR PUDDING 40% w/v 230ML TUBE As Ordered ONE
--- NOTE | 2018-09-15 12:12 | REPMRS ---
Patient History The patient states she has not had a clinical breast exam in over a year. No known family history of cancer. Digital Woman Screen Mammo: September 15, 2018 - Exam #: [id number] Bilateral CC and MLO view(s) were taken. Technologist: Jolene Thompson, Technologist Prior study comparison: August 28, 2017, digital woman screen mammo performed at [facility]. August 30, 2016, digital woman screen mammo performed at [facility]. August 11, 2015, digital woman screen mammo performed at [facility]. FINDINGS: The breast tissue is almost entirely fat. There has been no change in the appearance of the mammogram from the prior studies. There is no interval development of dominant mass, architectural distortion, or clustered microcalcification typical of malignancy. 3-D tomosynthesis shows no additional findings. Assessment: BI-RADS/ACR category 1 mammogram. Negative Mammogram. Recommendation Routine screening mammogram of both breasts in 1 year (for women over age 40). This patient's Lifetime Breast Cancer RIsk is estimated at 8.8 %. This mammogram was interpreted with the aid of an FDA-approved computer-aided dectection system. Electronically Signed By: Manny Neff MD 09/15/18 [id number]
== END ==
LOC: M WHC 09:24
PROVIDERS: ATTEND Nurse Practitioner Family
DX: Z12.31 Encounter for screening mammogram for malignant neoplasm of breast (principal)

== ENCOUNTER → 2018-11-04 | Outpatient (REF) | payer MEDICARE, MEDICAID | LOC: M SFHCPLAZ 10:22 | PROVIDERS: ATTEND Family Medicine | DX: C44.320 Squamous cell carcinoma of skin of unspecified parts of face (principal); L57.0 Actinic keratosis | CPT/HCPCS: 11102; 11103; 88305; G0463 ==

== ENCOUNTER → 2018-11-05 | Outpatient (CLI) | payer MEDICARE, MEDICAID ==
[~2018-11-05] MED LIST changes: +LIQUID POLIBAR PLUS 105% w/v 1900ML BTL As Ordered ONE
--- NOTE | 2018-11-06 09:07 | REP ---
Examination Requested: Barium and Air contrast Reason For Exam: Constipation The procedure was performed by BISMARK Jones, under the direct supervision of Dr. Urena. The images were reviewed with Dr. Urena. The yard motor operator film shows no organomegaly, or pathological masses. The intestinal gas pattern is unremarkable. Liquid barium and air were instilled into the colon and retrograde flow of the barium air mixture. The colon is normal in position and contour. Postradiation bulla is unremarkable throughout. There is free flow of contrast to the cecum. There are multiple diverticula along the sigmoid colon. Multiple diverticula are visualized scattered throughout the remaining colon. The sigmoid colon is extremely redundant. Due to it's redundant nature and multiple diverticula, evaluation of the sigmoid colon is limited. There are no polypoid masses identified. There is no annular constricting lesion identified. Impression: 1. Multiple diverticula of the sigmoid colon, with scattered diverticula throughout the remaining colon. 2. Redundant sigmoid colon. 1.7 minutes of fluoroscopy time was utilized for this procedure. Reviewed by BISMARK Reagan 11/05/2018 05:29 P Electronically Signed by Cyrus Urena MD 11/06/2018 08:58 A
== END ==
LOC: M RAD 08:06
PROVIDERS: ATTEND Internal Medicine Gastroenterology
DX: Z12.11 Encounter for screening for malignant neoplasm of colon (principal); Q43.8 Other specified congenital malformations of intestine

== ENCOUNTER → 2018-11-16 | Outpatient (REF) | payer MEDICARE, MEDICAID ==
[~2018-11-16] MED LIST changes: -LIQUID POLIBAR PLUS 105% w/v 1900ML BTL As Ordered ONE
[2018-11-16 11:24] LABS: ALBUMIN 3.3 GM/DL (3.2-5.2); ALT/SGPT 24 U/L (12-78); BILIRUBIN,TOTAL 0.7 MG/DL (0.2-1.0); BLOOD UREA NITROGEN 15 MG/DL (7-18); CARBON DIOXIDE LEVEL 32 MEQ/L (21-32); CHLORIDE LEVEL 104 MEQ/L (98-107); CHOLESTEROL LEVEL 118 MG/DL (<200); CHOLESTEROL RISK RATIO 2.313 (<5); CREATININE FOR GFR 0.84 MG/DL (0.55-1.30); GLOMERULAR FILTRATION RATE > 60.0 (>45); GLUCOSE, FASTING 100 MG/DL (70-100); HDL CHOLESTEROL 51 MG/DL (>40); LDL CHOLESTEROL 39 MG/DL (<100); NON-HDL-C 67 MG/DL; POTASSIUM SERUM 4.3 MEQ/L (3.5-5.1); SODIUM LEVEL 141 MEQ/L (136-145); TRIGLYCERIDES LEVEL 138 MG/DL (<150)
[2018-11-16 11:33] LABS: HEMOGLOBIN A1c 6.9 %
[2018-11-16 12:06] LABS: MALB URINE SIEMENS 13.4 MG/L; MAU/CREAT RATIO 6.9 MCG/MG (0.0-30.0)
== END ==
LOC: M SFHCPLAZ 07:47
PROVIDERS: ATTEND Nurse Practitioner Family
DX: E11.9 Type 2 diabetes mellitus without complications (principal); E78.5 Hyperlipidemia, unspecified

== ENCOUNTER → 2018-11-18 | Outpatient (REF) | payer MEDICARE, MEDICAID | LOC: M SFHCPLAZ 15:25 | PROVIDERS: ATTEND Nurse Practitioner Family | DX: N39.0 Urinary tract infection, site not specified (principal) | CPT/HCPCS: 81002; 87088; 87186; G0463 ==

== ENCOUNTER 2018-11-27 12:30 | Outpatient (RCR) | payer MEDICARE, MEDICAID | END 2018-11-29 | LOC: M PT 12:30 | PROVIDERS: ATTEND Anesthesiology Pain Medicine | DX: M54.5 Low back pain (principal) ==

== ENCOUNTER 2018-12-15 10:45 | Outpatient (RCR) | payer MEDICARE, MEDICAID | END 2018-12-30 | LOC: M PT 10:45 | PROVIDERS: ATTEND Anesthesiology Pain Medicine | DX: Z51.89 Encounter for other specified aftercare (principal); M54.5 Low back pain ==

== ENCOUNTER → 2019-02-02 | Outpatient (REF) | payer MEDICARE, MEDICAID | LOC: M SFHCPLAZ 10:13 | PROVIDERS: ATTEND Dermatology | DX: C44.320 Squamous cell carcinoma of skin of unspecified parts of face (principal) ==

== ENCOUNTER → 2019-02-16 | Outpatient (REF) | payer MEDICARE, MEDICAID ==
[2019-02-16 12:30] LABS: ALBUMIN 3.7 GM/DL (3.2-5.2); ALT/SGPT 24 U/L (12-78); BILIRUBIN,TOTAL 0.7 MG/DL (0.2-1.0); BLOOD UREA NITROGEN 15 MG/DL (7-18); CALCIUM LEVEL 9.2 MG/DL (8.8-10.2); CARBON DIOXIDE LEVEL 30 MEQ/L (21-32); CHLORIDE LEVEL 102 MEQ/L (98-107); CREATININE FOR GFR 0.89 MG/DL (0.55-1.30); GLOMERULAR FILTRATION RATE > 60.0 (>45); GLUCOSE, FASTING 112 MG/DL (70-100); POTASSIUM SERUM 4.1 MEQ/L (3.5-5.1); SODIUM LEVEL 140 MEQ/L (136-145); TOTAL PROTEIN 7.1 GM/DL (6.4-8.2)
[2019-02-16 12:41] LABS: HEMOGLOBIN A1c 6.5 %
== END ==
LOC: M SFHCPLAZ 08:57
PROVIDERS: ATTEND Nurse Practitioner Family
DX: I10 Essential (primary) hypertension (principal); E78.5 Hyperlipidemia, unspecified; E11.9 Type 2 diabetes mellitus without complications

== ENCOUNTER 2019-04-25 14:31 | Inpatient (IN) | payer MEDICARE, MEDICAID ==
[~2019-04-25] VITALS: Ht 162.6 cm; Wt 106.5 kg
[~2019-04-25 14:31] MED LIST changes: -OMEP40CA2 PO; +OMEP40CA97 PO
[2019-04-25] MEDS ORDERED: NS 1,000 ML IV ONE (16:00)
[2019-04-25] MEDS ORDERED: MORPHINE 2 MG/ML 1ML VIAL (J2270) IV PRN (16:00)
[2019-04-25 16:16] LABS: HEMATOCRIT 44.1 % (36.0-47.0); HEMOGLOBIN 13.8 g/dl (12.0-15.5); MEAN CORPUSCULAR HEMOGLOBIN 27.8 pg (27.0-33.0); MEAN CORPUSCULAR HGB CONC 31.3 g/dl (32.0-36.5); MEAN CORPUSCULAR VOLUME 88.7 fl (80.0-96.0); PLATELET COUNT, AUTOMATED 316 10^3/uL (150-450); RED BLOOD COUNT 4.97 10^6/uL (4.00-5.40); WHITE BLOOD COUNT 16.7 10^3/uL (4.0-10.0)
[2019-04-25 16:27] LABS: INR 1.03; PROTHROMBIN TIME 13.2 SECONDS (11.8-14.0)
[2019-04-25 16:39] LABS: ALBUMIN 3.9 GM/DL (3.2-5.2); ALT/SGPT 32 U/L (12-78); BLOOD UREA NITROGEN 19 MG/DL (7-18); CALCIUM LEVEL 9.7 MG/DL (8.8-10.2); CARBON DIOXIDE LEVEL 30 MEQ/L (21-32); CHLORIDE LEVEL 101 MEQ/L (98-107); CPK CREATINE PHOSPHOKINASE 123 U/L (26-192); CREATININE FOR GFR 1.03 MG/DL (0.55-1.30); GLOMERULAR FILTRATION RATE 57.6 (>45); GLUCOSE, FASTING 111 MG/DL (70-100); MB/CK RELATIVE INDEX 0.81 (< OR =4); POTASSIUM SERUM 3.8 MEQ/L (3.5-5.1); SODIUM LEVEL 139 MEQ/L (136-145); TOTAL PROTEIN 7.9 GM/DL (6.4-8.2); TROPONIN I < 0.02 NG/ML (< 0.10)
[2019-04-25] MEDS ORDERED: DEXTROSE 50% 50 ML SYRINGE IV PRN (17:30)
[2019-04-25] MEDS ORDERED: MORPHINE 4 MG/ML 1ML VIAL/SYRINGE (J2270) IV PRN (17:30)
[2019-04-25] MEDS ORDERED: GLUCOSE 4 GM CHEW TABLET PO PRN (17:30)
[2019-04-25] MEDS ORDERED: GLUCAGON FOR INJ 1 MG VIAL (J1610) SC PRN (17:30)
[2019-04-25] MEDS ORDERED: PERCOCET 5MG/325MG TAB PO PRN (17:30)
[2019-04-25] MEDS ORDERED: SENN-52 PO (17:40)
[2019-04-25] MEDS ORDERED: GLIM4TAB3 PO (17:40)
[2019-04-25] MEDS ORDERED: ASPI81CH48 PO (17:45)
[2019-04-25] MEDS ORDERED: ATOR1TAB21 PO (17:45)
[2019-04-25] MEDS ORDERED: AMLO5TAB6 PO (17:45)
[2019-04-25] MEDS ORDERED: ACET-908 PO (17:45)
[2019-04-25] MEDS ORDERED: BACL10TA8 PO (17:45)
[2019-04-25] MEDS ORDERED: FLON1SPR (17:45)
[2019-04-25] MEDS ORDERED: NORC1TAB7 PO (17:45)
[2019-04-25] MEDS ORDERED: PERCOCET 5MG/325MG TAB PO ONE (18:00)
[2019-04-25 19:20] VITALS: BP 131/58
--- NOTE | 2019-04-25 19:26 | ECGEPIP ---
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
--- NOTE | 2019-04-25 20:38 | HPE ---
DATE OF ADMISSION: 04/25/2019 CHIEF COMPLAINT: Fall. HISTORY OF PRESENT ILLNESS: This is a 63-year-old female who was in her usual state of health on her way to her cousin's house when she slipped on some mud, fell on her buttocks on the left side, heard a popping sound twice and could not get up due to severe pain. Her cousin called emergency medical services (EMS) and she was kept on the floor until she could be brought into the hospital. The patient has in her usual state of health and denied any chest pain, pressure, tightness, palpitations, lightheadedness, dizziness, nausea, vomiting, diarrhea, constipation, changes in weight or appetite, blurred vision, diplopia, sore throat, cough, hemoptysis, bright red blood per rectum, melena or black tarry stools at home. The patient's glucose has been fairly well controlled with no episodes of hypoglycemia. The patient felt that the fall was strictly due to the muddy surface, otherwise had no prodromal symptoms. She has no prior history of CVA, myocardial infarction or congestive heart failure (CHF), usually ambulates well. Carries her groceries without any difficulty. The hospitalist was called to do a preoperative medical clearance and admit for left tibia fracture. Orthopedic surgeon, Dr. Akbar, has been informed. The patient is to be nothing by mouth after midnight for surgery in the morning. PAST MEDICAL HISTORY: 1. Hypertension. 2. Diabetes. 3. Allergic rhinitis. 4. Reflux. 5. Arthritis. 6. Bilateral carpal tunnel syndrome. 7. L5-S1 spondylolisthesis, bilateral L5-S1 neuro foraminal narrowing with protrusion of L3-L5. Follows with [facility], Dr. Bhat and pain management. 8. Left ear pain thought to be secondary to temporomandibular joint. 9. Chronic small vessel ischemic disease on MRI of the brain with nonspecific demyelination. 10. Tourette's syndrome. 11. 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 12. Seasonal allergies. ALLERGIES: SULFA causing GI distress. PAST SURGICAL HISTORY: 1. Laparoscopic cholecystectomy in 2011. 2. Left ankle surgery in 1993. 3. YO/BSO 24 years ago. 4. Lumbar spine surgery per Dr. Bhat in [place] in 2013. 5. Diverticulosis. 6. Internal hemorrhoids in 2009. 7. Umbilical hernia repair in 2014. 8. Left carpal tunnel in 2017. 9. Right carpal tunnel in 2018. 10. Colonoscopy with diverticulosis in 2018. 11. Esophageal balloon expansion upper GI 2018. 13. Skin cancer lesion in 2019. FAMILY HISTORY: Father in 1990 from throat cancer, malignant neoplasm of unspecified site, previous smoker. Mother in 1990. One brother and two sisters. One brother passed of cancer in 2002. Sister passed from myocardial infarction in 2016. Family history of melanoma and pancreatic cancer. Mother had diabetes and coronary artery disease. SOCIAL HISTORY: The patient has a friend who will be helping her at home. Denies smoking. History of heavy alcohol abuse, quit in her 30s. The patient is a FULL CODE. 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 HOME MEDICATIONS: - acetaminophen 650 mg every 4 hours as needed - Norvasc 5 mg daily - aspirin 81 mg daily - cetirizine 10 mg daily - Colace 100 daily - Enalapril 20 twice a day - gabapentin 300 mg three times a day - Amaryl 2 mg daily - hydrochlorothiazide 25 mg daily - metformin 2 grams at night - omega 3 fish oil one capsule daily - omeprazole 40 daily - quetiapine 25 mg at night - ranitidine one tablet at night - tizanidine 4 mg every 6 hours as needed - Centrum Silver one tablet daily - Victoza 1.8 mg daily - Nasacort as needed for nasal congestion REVIEW OF SYSTEMS: As per history of present illness, 12 system negative. PHYSICAL EXAMINATION: VITAL SIGNS: Temperature 98.7, pulse 82, respiratory rate 16, blood pressure 139/63, 100% on room air. GENERAL: Awake, alert, oriented times three. Answering questions appropriately. HEENT: No cervical lymphadenopathy, thyromegaly. Anicteric sclerae. No jaundice. Pupils are round and reactive. Extraocular muscles intact. Thick neck. No jugular venous distention (JVD) or thyromegaly. LUNGS: Clear to auscultation. No wheezing, rales or rhonchi. HEART: S1, S2. Sinus rhythm. No murmurs, rubs or gallops. ABDOMEN: Obese, soft, nontender, nondistended. EXTREMITIES: No pitting edema. The patient has left hip tenderness, left lower extremity externally rotated. The patient has mud under her fingernails due to recent fall. Electrocardiogram (EKG) showed sinus rhythm with ventricular rate of 79, SD interval 140, QRS 98, QT 375, QTC 409, normal EKG. Chest x-ray showed no infiltrate or edema. White count 16.7, hemoglobin 13, hematocrit 44, platelet count 316. Sodium 139, potassium 3.8, chloride 101, bicarbonate 30, BUN 19, creatinine 1.03, glucose 111, calcium 8.7, total bilirubin 1, AST 32, ALT 32, alkaline phosphatase 95, total CK 123, MB fraction 1, troponin less than 0.02, total protein 7.9, albumin 3.9, INR 1.03. IMAGING STUDIES: Pending official report. ASSESSMENT AND PLAN: 63-year-old female who presents with mechanical fall after stepping on some mud and landing on her left hip and hearing two pops. The patient was found to have a left hip fracture, admitted to medicine with surgery consultation. CURRENT ISSUES: 1. Preoperative medical clearance. The patient has no prior history of coronary artery disease or myocardial infarction and currently has no ischemic symptoms during the episode prior to her fall. The patient is medically optimized to proceed to the operating room in the morning. 2. Left hip fracture. The patient is nothing by mouth after midnight. IV fluids, fingersticks, hypoglycemic protocol. Aspirin has been held. 3. Deep vein thrombosis (DVT) prophylaxis. Currently on compression stockings. 4. Bed rest due to recent fall and increased risk of recurrent fall with a hip fracture. Orthopedic surgery has been consulted for surgical management. Currently on Percocet one to two tablets as needed for pain and morphine for breakthrough pain. 5. Type 2 diabetes. Discontinue all hypoglycemics and start on insulin sliding scale, fingersticks every 6 hours while nothing by mouth, before food and nightly with coverage. 6. Hypertension. Continue her home dose of Norvasc. Currently well controlled at the moment. No changes in medications. Pain control. 7. Allergic rhinitis. May resume on home medications. 8. Chronic pain. May resume on home medications. Monitor for altered mental status.
[2019-04-25] MEDS: HumaLOG INSULIN (NovoLOG) PER UNIT SC SCH (21:00)
[2019-04-25 22:00] VITALS: BP 123/58
[2019-04-25] MEDS: PERCOCET 5MG/325MG TAB PO PRN (23:09)
[2019-04-26] VITALS (8 sets, daily range): BP systolic 87–155; BP diastolic 53–75
[2019-04-26] MEDS: D5W/0.45% SODIUM CHLORIDE 1,000 ML IV SCH ×3 (01:12→22:55)
[2019-04-26] MEDS ORDERED: ceFAZolin SOD 2 GM in IV 1 EA IV SCH (06:00)
[2019-04-26] MEDS: PERCOCET 5MG/325MG TAB PO PRN ×3 (06:15→23:50)
[2019-04-26] MEDS: HumaLOG INSULIN (NovoLOG) PER UNIT SC SCH ×4 (07:30→21:00)
--- NOTE | 2019-04-26 07:43 | REP ---
REASON: Pain after trauma. PRIORS: None. FINDINGS: The compartments are symmetric and relatively well maintained. There is no acute fracture or destructive osseous lesion. Electronically Signed by Cam Larkin DO 04/26/2019 12:07 P
--- NOTE | 2019-04-26 07:57 | REP ---
REASON: Pain after trauma. There is an intertrochanteric fracture. Electronically Signed by Cam Larkin DO 04/26/2019 12:09 P
--- NOTE | 2019-04-26 08:01 | REP ---
REASON FOR EXAM: Unknown. Only one view is obtained. It is compared to 11/03/2016, a frontal view obtained as part of an abdominal series. This limited frontal view of the chest shows an enlarging nodule in the right lower lobe. Heart is not enlarged. The pleural angles are sharp. The osseous structures are stable and intact. IMPRESSION: Evidence of an enlarging nodule in the right lower lobe seen on this frontal view only. CT of the chest is recommended. Electronically Signed by Cam Larkin DO 04/26/2019 12:09 P
[2019-04-26 08:07] LABS: BLOOD UREA NITROGEN 14 MG/DL (7-18); CALCIUM LEVEL 8.7 MG/DL (8.8-10.2); CARBON DIOXIDE LEVEL 32 MEQ/L (21-32); CHLORIDE LEVEL 102 MEQ/L (98-107); CREATININE FOR GFR 0.94 MG/DL (0.55-1.30); GLOMERULAR FILTRATION RATE > 60.0 (>45); GLUCOSE, FASTING 104 MG/DL (70-100); POTASSIUM SERUM 3.4 MEQ/L (3.5-5.1); SODIUM LEVEL 140 MEQ/L (136-145)
[2019-04-26 08:30] LABS: MEAN CORPUSCULAR HEMOGLOBIN 27.7 pg (27.0-33.0); MEAN CORPUSCULAR HGB CONC 31.1 g/dl (32.0-36.5); MEAN CORPUSCULAR VOLUME 89.2 fl (80.0-96.0); PLATELET COUNT, AUTOMATED 269 10^3/uL (150-450); RED BLOOD COUNT 4.15 10^6/uL (4.00-5.40); WHITE BLOOD COUNT 8.6 10^3/uL (4.0-10.0)
--- NOTE | 2019-04-26 08:34 | CR ---
DATE OF CONSULTATION: 04/26/2019 INDICATION: Left hip fracture. HISTORY OF PRESENT ILLNESS: Akilah is a pleasant 63-year-old female who sustained a mechanical fall on 04/25/2019. She slipped on a muddy surface outside and went down. She had pain and inability to weight bear. She was brought to [facility] where x-rays revealed an intertrochanteric femur fracture on the left side. She was admitted to the hospitalist service. In speaking to the patient this morning, she is reporting moderate left hip pain. Denies any new numbness or tingling in her foot. She has generalized left leg weakness and she does have a history of an instrumented lumbar fusion done in [place]. She denies knee pain. PAST MEDICAL HISTORY/PAST SURGICAL HISTORY/MEDICATIONS/ALLERGIES/SOCIAL HISTORY/REVIEW OF SYSTEMS: For full history, please see the admitting history and physical which I personally reviewed. The patient has diabetes and hypertension. She has a history of a skin cancer on her face, but no personal history of cancer otherwise. PHYSICAL EXAMINATION: Reveals a middle-aged female in no distress. She is alert and oriented times three. She is has an appropriate mood and affect. She has a 2+ PT pulse. Pulmonary: Nonlabored breathing. Skin on the left hip is intact without open lesions. There is no severe tenderness to palpation of the greater trochanter. There is a thicker layer of soft tissue there. Her leg is shortened and externally rotated slightly. Log roll deferred due to known fracture. She is nontender to palpation at the knee. She has 5/5 EHL, FHL, TA and GS. Sensation to light touch in the foot is intact. X-RAYS: X-rays of the hip and femur obtained reveal a mildly displaced intertrochanteric proximal femur fracture. There was some sclerosis at the calcar so I asked for a CT scan of the left hip and that does not show any concern for any blastic lesions; however, there is an area at the tip of the trochanter that either has some increased lucency or it is artifact due to fracture displacement. I have personally spoken to the radiologist this morning on 04/26/2019 at around 7:30 and he is going to take a further look at the CT scan and pay close attention to the greater trochanter to see if there are any lytic lesions. ASSESSMENT/PLAN: Akilah is a 63-year-old female with a displaced left intertrochanteric femur fracture. She has been admitted to the hospitalist service and deemed medically optimized. As long as a CT scan is read as no lytic lesions, the plan would be to move forward with surgery later this afternoon when the operating room (OR) is available. I explained to the patient OR availability will be the rate limiting step here. I discussed the risks and benefits of closed versus open reduction and internal fixation with a cephalomedullary nail with her and written informed consent was obtained. Either myself or my OR my partner, Dr. Langford who is on-call, would be performing the surgery if we can do so today.
--- NOTE | 2019-04-26 08:39 | REP ---
REASON: Chest pain after trauma. There are no priors. The lack of intravenous contrast significantly decreases the sensitivity of the exam. There are mediastinal and right hilar calcifications consistent with granulomatous lymph node calcifications. There is no adenopathy. There is no evidence of a mass. There are no pleural or pericardial effusions. The imaged upper abdomen is within normal limits. The imaged osseous structures are within normal limits. Evaluation of the lung haro shows granulomatous calcifications in the right lower lobe. There are no abnormal nodules, masses, or opacities. IMPRESSION: No acute disease. Electronically Signed by Cam Larkin DO 04/26/2019 12:12 P
--- NOTE | 2019-04-26 08:47 | REP ---
REASON FOR EXAM: Pain after trauma. Prior plain film examination showed a femoral fracture. There is a comminuted intertrochanteric left femoral fracture. There is no hip dislocation. There is expected soft tissue swelling. There are no additional fractures. IMPRESSION: Intertrochanteric left femoral fracture. Electronically Signed by Cam Larkin DO 04/26/2019 12:13 P
[2019-04-26 08:51] LABS: HEMOGLOBIN 11.5 g/dl (12.0-15.5)
[2019-04-26] MEDS ORDERED: FLUBLOK(EGG FREE)(QUAD)INFLUENZA VACC 0.5ML SYRINGE (90682)18YRS&OLDER IM ONE (09:00)
--- NOTE | 2019-04-26 11:56 | IPNPDOC ---
Subjective Date Seen The patient was seen on 04/26/19. Subjective Chief Complaint/HPI left hip fracture Events since last encounter Admitted overnight for left hip fracture. planned surgical correction today. St ates pain is well controlled with prn pain meds. Constitutional: Denies: Chills, Fever, Night Sweats ENT: Denies: Head Aches, Ear Pain, Dysphagia Skin: Denies: Rash, Lesions, Breakdown Pulmonary: Denies: Dyspnea, Cough Cardiovascular: Denies: Chest Pain, Palpitations, Orthopnea, Paroxysmal Noc. Dyspnea, Lt Headedness Genitourinary: Denies: Dysuria, Frequency, Incontinence, Retention Psych: Reports: Mood Normal; Denies: Depression, Memory Issues Objective Physical Examination General Exam: Positive: Alert, No Acute Distress Chest Exam: Positive: Clear to auscultation, Normal air movement Heart Exam: Positive: Rate Normal, Regular Rhythm, Normal S1, Normal S2; Negative: Murmurs, Rubs Abdomen Exam: Positive: Normal bowel sounds, Soft; Negative: Tenderness, Hepatospenomegaly Skin Exam: Positive: Nl turgor and temperature; Negative: Rash, Breakdown Psych Exam: Positive: Mental status NL, Mood NL, Oriented x 3 Assessment /Plan Problems (1) Hip fracture, left Status: Acute Problem Text: planned surgical correction today (2) HTN (hypertension) Status: Chronic Response to Treatment: Stable Problem Text: elevated BP today. Will resume Verapamil on home dosing. (3) Diabetes Status: Chronic Response to Treatment: Stable Problem Text: FS q 6 hrs while NPO. AC and hs with RISS when starts eating (4) Hyperlipidemia Status: Chronic Response to Treatment: Stable Problem Text: continue home dose Atorvastatin Plan/VTE VTE Prophylaxis Ordered?: No (pre-op) VS, I&O, 24H, Fishbone Vital Signs/I&O Vital Signs Date Time Temp Pulse Resp B/P (MAP) Pulse Ox O2 Delivery O2 Flow Rate FiO2 04/26/19 06:15 16 04/26/19 06:00 98.5 75 155/74 (101) 97 Room Air I&O- Last 24 Hours up to 6 AM 04/26/19 06:00 Intake Total 2000 ml Balance 2000 ml Laboratory Data 24H LABS Laboratory Tests 2 04/25/19 16:01: Nucleated Red Blood Cells % (auto) 0.0, Prothrombin Time 13.2, Prothromb Time International Ratio 1.03, Activated Partial Thromboplast Time 27.0, Anion Gap 8, Glomerular Filtration Rate 57.6, Calcium Level 9.7, Total Bilirubin 1.0, Aspartate Amino Transf (AST/SGOT) 32, Alanine Aminotransferase (ALT/SGPT) 32, Alkaline Phosphatase 95, Total Creatine Kinase 123, Creatine Kinase MB 1.0, Creatine Kinase MB Relative Index 0.81, Troponin I < 0.02, Total Protein 7.9, Albumin 3.9, Albumin/Globulin Ratio 0.98L 04/25/19 21:36: Bedside Glucose (Misc Panel) 229H 04/26/19 05:31: Nucleated Red Blood Cells % (auto) 0.0, Anion Gap 6L, Glomerular Filtration Rate > 60.0, Calcium Level 8.7L, Magnesium Level 2.0, Thyroid Stimulating Hormone (TSH) 3.270 04/26/19 07:51: Bedside Glucose (Misc Panel) 125H CBC/BMP Laboratory Tests 04/25/19 16:01 04/26/19 05:31 Rosi Demarco DISC PAD GRINDING MACHINE FEEDER Apr 26, 2019 11:56
[2019-04-26] MEDS ORDERED: FLUTICASONE PROP 0.05% NASAL SPRAY 16 GM (FLONASE) PRN (12:00)
[2019-04-26] MEDS ORDERED: ACETAMINOPHEN TAB 650MG DOSE (2X325MG) PO PRN (12:00)
--- NOTE | 2019-04-26 12:20 | IPNPDOC ---
Subjective Date Seen The patient was seen on 04/26/19. Subjective Chief Complaint/HPI left hip fracture Events since last encounter s/p mechanical fall with left hip fracture. admitted overnight. planned repair today. Constitutional: Denies: Chills, Fever, Night Sweats Pulmonary: Denies: Dyspnea, Cough Cardiovascular: Denies: Chest Pain, Palpitations, Orthopnea, Paroxysmal Noc. Dyspnea, Lt Headedness Gastrointestinal: Denies: Nausea, Vomiting, Abdominal Pain, Diarrhea, Constipation Genitourinary: Denies: Dysuria, Frequency, Incontinence, Retention Objective Physical Examination General Exam: Positive: Alert, No Acute Distress Chest Exam: Positive: Clear to auscultation, Normal air movement Heart Exam: Positive: Rate Normal, Regular Rhythm, Normal S1, Normal S2; Negative: Murmurs, Rubs Abdomen Exam: Positive: Normal bowel sounds, Soft; Negative: Tenderness, Hepatospenomegaly Skin Exam: Positive: Nl turgor and temperature; Negative: Rash, Breakdown Psych Exam: Positive: Mental status NL, Mood NL, Oriented x 3 Assessment /Plan Problems (1) Hip fracture, left Status: Acute Problem Text: planned surgical correction today (2) HTN (hypertension) Status: Chronic Response to Treatment: Stable Problem Text: elevated BP today. Will resume Verapamil on home dosing. (3) Diabetes Status: Chronic Response to Treatment: Stable Problem Text: FS q 6 hrs while NPO. AC and hs with RISS when starts eating (4) Hyperlipidemia Status: Chronic Response to Treatment: Stable Problem Text: continue home dose Atorvastatin Plan/VTE VTE Prophylaxis Ordered?: No (pre-op) VS, I&O, 24H, Fishbone Vital Signs/I&O Vital Signs Date Time Temp Pulse Resp B/P (MAP) Pulse Ox O2 Delivery O2 Flow Rate FiO2 04/26/19 06:15 16 04/26/19 06:00 98.5 75 155/74 (101) 97 Room Air I&O- Last 24 Hours up to 6 AM 04/26/19 06:00 Intake Total 2000 ml Balance 2000 ml Laboratory Data 24H LABS Laboratory Tests 2 04/25/19 16:01: Nucleated Red Blood Cells % (auto) 0.0, Prothrombin Time 13.2, Prothromb Time International Ratio 1.03, Activated Partial Thromboplast Time 27.0, Anion Gap 8, Glomerular Filtration Rate 57.6, Calcium Level 9.7, Total Bilirubin 1.0, Aspartate Amino Transf (AST/SGOT) 32, Alanine Aminotransferase (ALT/SGPT) 32, Alkaline Phosphatase 95, Total Creatine Kinase 123, Creatine Kinase MB 1.0, Creatine Kinase MB Relative Index 0.81, Troponin I < 0.02, Total Protein 7.9, Albumin 3.9, Albumin/Globulin Ratio 0.98L 04/25/19 21:36: Bedside Glucose (Misc Panel) 229H 04/26/19 05:31: Nucleated Red Blood Cells % (auto) 0.0, Anion Gap 6L, Glomerular Filtration Rate > 60.0, Calcium Level 8.7L, Magnesium Level 2.0, Thyroid Stimulating Hormone (TSH) 3.270 04/26/19 07:51: Bedside Glucose (Misc Panel) 125H 04/26/19 12:02: Bedside Glucose (Misc Panel) 118H CBC/BMP Laboratory Tests 04/25/19 16:01 04/26/19 05:31 Rosi Demarco TRAIN CREW MEMBER Apr 26, 2019 12:20
[2019-04-26] MEDS: OMEPRAZOLE 20 MG CAP PO SCH (12:44)
[2019-04-26] MEDS: OMEGA-3 1000MG CAPSULE PO SCH (12:45)
[2019-04-26] MEDS: BACLOFEN 10 MG TAB PO PRN (12:45)
[2019-04-26] MEDS: ATORVASTATIN 20 MG TAB PO SCH (12:47)
[2019-04-26] MEDS: ENALAPRIL MALEATE 10 MG TAB PO SCH (12:47)
[2019-04-26] MEDS: GABAPENTIN 300 MG CAP PO SCH ×3 (12:47→22:22)
[2019-04-26] MEDS: amLODIPine 5 MG TAB PO SCH (12:48)
[2019-04-26] MEDS ORDERED: ceFAZolin 1GM INJ (J0690 PER 500MG) As Ordered ONE (17:04)
[2019-04-26] MEDS ORDERED: PROPOFOL 200 MG/20 ML VIAL As Ordered ONE (17:06)
[2019-04-26] MEDS ORDERED: LIDOCAINE 2% INJ 100 MG/5 ML SDV (FOR ANES.) As Ordered ONE (17:06)
[2019-04-26] MEDS ORDERED: ROCURONIUM BROMIDE 50 MG/5 ML VIAL As Ordered ONE (17:06)
[2019-04-26] MEDS ORDERED: MIDAZOLAM INJ 2 MG/2 ML VIAL (J2250) As Ordered ONE (17:07)
[2019-04-26] MEDS ORDERED: fentaNYL 250 MCG/5 ML INJECTION (J3010) As Ordered ONE (17:07)
[2019-04-26] MEDS ORDERED: ceFAZolin 2 GM/D5W 50 ML IV BAG (J0690 PER 500MG) As Ordered ONE (17:22)
[2019-04-26] MEDS ORDERED: PHENYLephrine HCL 500 MCG/5 ML (100MCG/ML) SYRINGE (J2370) As Ordered ONE ×2 (17:29→17:51)
[2019-04-26] MEDS ORDERED: ePHEDrine SULFATE 25 MG/5 ML(5MG/ML) SYRINGE As Ordered ONE (17:51)
[2019-04-26] MEDS ORDERED: dexameTHASONE 4 MG/ML 1ML VIAL (J1100) As Ordered ONE (18:03)
[2019-04-26] MEDS ORDERED: ONDANSETRON 4MG/2ML VIAL (J2405) As Ordered ONE (18:03)
[2019-04-26] MEDS ORDERED: ACETAMINOPHEN 1000MG 100ML IV BTL (OFIRMEV) (J0131 PER 10MG) As Ordered ONE (18:18)
[2019-04-26] MEDS ORDERED: SUGAMMADEX SODIUM 500 MG/5 ML VIAL (BRIDION) As Ordered ONE (18:21)
[2019-04-26] MEDS ORDERED: ONDANSETRON 4MG/2ML VIAL (J2405) IV PRN (19:00)
[2019-04-26] MEDS ORDERED: LR 1,000 ML IV SCH (19:00)
[2019-04-26] MEDS ORDERED: oxyCODONE 5MG TAB PO PRN (19:00)
[2019-04-26] MEDS ORDERED: fentaNYL 100 MCG/2 ML INJECTION (J3010) IV PRN (19:00)
[2019-04-26] MEDS ORDERED: oxyCODONE 5MG TAB As Ordered ONE (19:01)
--- NOTE | 2019-04-26 19:38 | REP ---
Clinical: Left hip fracture fixation. Technique: Intraoperative fluoroscopic imaging using portable C-arm technique. Findings: The patient is status post open reduction and fixation with intramedullary justen and compression screw through the left femur. Satisfactory reduction and hardware placement noted. Total fluoroscopic time 2 minutes 15 seconds (60 mGy). Impression: Status post open reduction and fixation for left hip fracture. Electronically Signed by Solomon Cruz MD 04/26/2019 07:30 P
[2019-04-26] MEDS ORDERED: SENOKOT S TAB PO SCH (21:00)
[2019-04-26] MEDS ORDERED: QUEtiapine FUMARATE 25 MG TAB PO SCH (21:00)
[2019-04-27 01:00] VITALS: BP 132/80
[2019-04-27 02:15] VITALS: BP 129/78
[2019-04-27] MEDS: ceFAZolin SOD 1 GM in D5W MINI-BAG PLUS 50 ML IV SCH ×2 (02:29→09:15)
[2019-04-27 05:00] VITALS: BP 127/82
[2019-04-27 06:21] LABS: HEMATOCRIT 34.2 % (36.0-47.0); HEMOGLOBIN 10.2 g/dl (12.0-15.5); MEAN CORPUSCULAR HEMOGLOBIN 27.3 pg (27.0-33.0); MEAN CORPUSCULAR HGB CONC 29.8 g/dl (32.0-36.5); MEAN CORPUSCULAR VOLUME 91.4 fl (80.0-96.0); PLATELET COUNT, AUTOMATED 244 10^3/uL (150-450); RED BLOOD COUNT 3.74 10^6/uL (4.00-5.40); WHITE BLOOD COUNT 9.8 10^3/uL (4.0-10.0)
[2019-04-27 06:50] LABS: ALBUMIN 2.8 GM/DL (3.2-5.2); BILIRUBIN,TOTAL 0.8 MG/DL (0.2-1.0); CREATININE FOR GFR 1.16 MG/DL (0.55-1.30); GLOMERULAR FILTRATION RATE 50.2 (>45); POTASSIUM SERUM 4.2 MEQ/L (3.5-5.1); TOTAL PROTEIN 6.4 GM/DL (6.4-8.2)
[2019-04-27 07:45] VITALS: BP 124/82
[2019-04-27] MEDS ORDERED: MOM 30ML SUSPENSION UDC PO SCH (09:00)
[2019-04-27] MEDS: BACLOFEN 10 MG TAB PO PRN ×2 (09:15→15:50)
[2019-04-27] MEDS: PERCOCET 5MG/325MG TAB PO PRN ×2 (09:16→15:51)
[2019-04-27] MEDS: HumaLOG INSULIN (NovoLOG) PER UNIT SC SCH ×2 (09:16→13:00)
[2019-04-27] MEDS: ATORVASTATIN 20 MG TAB PO SCH (09:38)
[2019-04-27] MEDS: GABAPENTIN 300 MG CAP PO SCH ×2 (09:38→15:50)
[2019-04-27] MEDS: OMEGA-3 1000MG CAPSULE PO SCH (09:39)
[2019-04-27] MEDS: OMEPRAZOLE 20 MG CAP PO SCH (09:39)
[2019-04-27] MEDS: ENALAPRIL MALEATE 10 MG TAB PO SCH (09:40)
[2019-04-27 09:41] VITALS: BP 124/82
[2019-04-27] MEDS: MIRALAX *UNIT DOSE* 17GM PACKET PO SCH ×2 (09:41→10:21)
[2019-04-27] MEDS: amLODIPine 5 MG TAB PO SCH (09:41)
--- NOTE | 2019-04-27 10:37 | RO ---
DATE OF PROCEDURE: 04/26/2019 PREOPERATIVE DIAGNOSIS: Left intertrochanteric hip fracture. POSTOPERATIVE DIAGNOSIS: Left intertrochanteric hip fracture. PROCEDURE: Left femur intramedullary rodding of hip fracture. SURGEON: Darryl Langford MD PLUG MAKING OPERATOR: None. ANESTHESIA: General. INDICATIONS: This is a 63-year-old female that suffered a low energy fall suffering a left hip fracture. We discussed operative versus nonoperative interventions. In order to increase her mobilization and overall health, the idea is to get her ambulating as soon as possible and this was done with operative intervention. The patient understood the risks and benefits including, but not limited to infection, damage to surrounding structures, malunion, nonunion and incomplete relief, and the patient wished to proceed. PREOPERATIVE ANTIBIOTICS: 2 grams of Ancef. COMPLICATIONS: None. ESTIMATED BLOOD LOSS: Approximately 250 mL. OPERATIVE DESCRIPTION: The patient was brought back to the operating room in the supine position on the hospital bed, underwent general anesthesia at which point the patient was transferred to the fracture table and placed on the fracture table, left leg in traction and right leg onto the frame. We prepped and draped the left leg in the usual fashion at which point we had a time out confirming site, side and surgery. Once all in agreement made a longitudinal incision proximal to the greater trochanter in line with the femur. We used the drill tip pins for our starting points confirmed on AP and lateral, at which point we used the entry reamer. Then we sequentially reamed up to 12.5. We measured the nail to be 380. We used a 125 degree trochanteric fixation nail (TFN) at which point we inserted the nail. Once we inserted the nail we impacted down so that the pin was center-center. We confirmed this on AP and lateral, at which point we measured to 95. We drilled to 95. We then impacted the helical blade. We then used the compression mechanism to compress the fracture, at which point we locked it in place. We then did perfect chipewwa technique for two distal locking screws, confirmed on AP and lateral. At which point we removed the aiming arm, we took our final films. We discovered that the AP was center-center for the helical blade but on the lateral it was slightly deviated anteriorly, however within the acceptable limits of apex distance, at which point we irrigated the wounds thoroughly, closed the subcutaneous tissue with #2-0 Vicryl and skin with evelin, dressed them with gauze and Tegaderm. The patient was then awakened from anesthesia and moved over to the hospital bed. POSTOPERATIVE PLAN: The patient will be weightbearing as tolerated, get skip antibiotics and start deep vein thrombosis (DVT) prophylaxis, and work on pain control. Followup in two weeks at that time.
[2019-04-27] MEDS ORDERED: RIVAROXABAN 10 MG TAB (XARELTO) PO SCH (18:00)
--- NOTE | 2019-04-27 18:58 | IPNPDOC ---
Date Seen The patient was seen on 04/27/19. Progress Note SUBJECTIVE: 63-year-old female patient seen bed-side has slipped and fell on the ground landed on left side of the buttock and had a left hip fracture. Patient had surgery yesterday. She is having hypoxic episodes with oxygen saturation dropping to 83. She reports having this episodes postoperatively. Patient is doing better denies having any chest pain, shortness of breath, nausea, vomiting, diarrhea, abdominal pain, dysuria. Patient reports having 80 pounds of weight loss after starting Victoza. OBJECTIVE PHYSICAL EXAMINATION: VITAL SIGNS: Please see below. GENERAL: Pleasant sitting up in bed awake alert oriented speaking in complete sentences no acute distress HEENT: Moist mucous membranes no elevation in CVP CARDIOVASCULAR: Normal rate and rhythm , S1 S2 regular no additional heart sounds appreciated. RESPIRATORY: Clear to auscultation bilaterally. ABDOMINAL: Bowel sounds present abdomen soft and nontender EXTREMITIES: No clubbing cyanosis or edema. Left lateral thigh surgerical dressing were examined and negative for discharge or pus. Site around dressing was not tender to touch as well. NEUROLOGICAL: cranial 2 through 12 grossly intact no gross focal deficits appreciated PSYCHOLOGICAL: Appropriate LABORATORY DATA, MICROBIOLOGY: Please see below. ASSESSMENT AND PLAN: This is a 63-year-old female who fell and had left hip fracture. She had surgery yesterday. PROBLEMS: Left hip fracture : - Had surgical correction on 04/26/19. - She had reported hypoxic episodes of oxygen saturation dropping to 83. - Will start her on incentive spirometry and will continue in ARU - Oxycodone and morphine PRN - remaining management per ortho - Hypertension: -c/w amlodipine 5mg and Enalapril 20mg BID - Type 2 diabetes mellitus: -Humalog insulin AC/SC hold home metformin 2 grams at night. -Hyperlipidemia: c/w atorvastatin 20mg - Constipation: Senna 2tab PO, Miralax PO, magnesium hydroxide 30ml. - Low back pain c/w Baclofen, tylenol PRN. Seasonal allergies: -Flonase nasal spray PRN. -held home ranitidine GERD -c/w with Prilosec -need to consider discontinue if residential for she is already on ranitidine outpatient which is a residential drug for Acid reflux Insomnia -Continue with home seroquel DVT prophylaxis: Xeralto 10mg DISPOSITION: ATTENDING NOTE I have personally evaluated and examined the patient. Discussed with residents and student regarding plan of care and agree with the above assessment and plan. VS, I&O, 24H, Fishbone Vital Signs/I&O Vital Signs Date Time Temp Pulse Resp B/P (MAP) Pulse Ox O2 Delivery O2 Flow Rate FiO2 04/27/19 09:46 18 Room Air 04/27/19 09:41 75 124/82 04/27/19 07:45 97.8 98 3.0 I&O- Last 24 Hours up to 6 AM 04/27/19 06:00 Intake Total 1040 ml Output Total 550 ml Balance 490 ml Laboratory Data 24H LABS Laboratory Tests 2 04/26/19 12:02: Bedside Glucose (Misc Panel) 118H 04/26/19 20:27: Bedside Glucose (Misc Panel) 180H 04/27/19 05:54: Nucleated Red Blood Cells % (auto) 0.0, Anion Gap 6L, Glomerular Filtration Rate 50.2, Calcium Level 8.0L, Magnesium Level 2.0, Total Bilirubin 0.8, Aspartate Amino Transf (AST/SGOT) 23, Alanine Aminotransferase (ALT/SGPT) 22, Alkaline Phosphatase 71, Total Protein 6.4, Albumin 2.8#L, Albumin/Globulin Ratio 0.78L CBC/BMP Laboratory Tests 04/27/19 05:54 BRENT CALHOUN DO Apr 27, 2019 11:25 XENIA CHATTERJEE MD Apr 28, 2019 13:35
[2019-04-28] MEDS ORDERED: ENTER DRUG NAME HERE (PATIENT'S OWN MED) SQ SCH (09:00)
--- NOTE | 2019-04-28 10:36 | DS.PDOC ---
Discharge Summary General Date of Admission Apr 25, 2019 at 17:17 Date of Discharge 04/28/2019 Attending Physician: XENIA CHATTERJEE MD Discharge Summary PROCEDURES PERFORMED DURING STAY: [None]. ADMITTING DIAGNOSES: 1. Left Hip Fracture 2. Hx. of Falls 3. Type 2 diabetes 4. Hypertension 5. Allergic Rhinitis 6. Chronic Pain DISCHARGE DIAGNOSES: 1. Left Intertrochanteric Hip Fracture (s/p surgical correction on 04/26/19) 2. Hx. of Falls 3. Type 2 diabetes 4. Hypertension 5. Allergic Rhinitis 6. Chronic Pain COMPLICATIONS/CHIEF COMPLAINT: Hip Fracture Left. HISTORY OF PRESENT ILLNESS: This is a 63-year-old female who was in her usual state of health on her way to her cousin's house when she slipped on some mud, fell on her buttocks on the left side, heard a popping sound twice and could not get up due to severe pain. Her cousin called emergency medical services (EMS) and she was kept on the floor until she could be brought into the hospital. The patient has been in her usual state of health and denied any chest pain, pre ssure, tightness, palpitations, lightheadedness, dizziness, nausea, vomiting, diarrhea, constipation, changes in weight or appetite, blurred vision, diplopia, sore throat, cough, hemoptysis, bright red blood per rectum, melena or black tarry stools at home. The patient's glucose has been fairly well controlled with no episodes of hypoglycemia. The patient felt that the fall was strictly due to the muddy surface, otherwise had no prodromal symptoms. She has no prior history of CVA, myocardial infarction or congestive heart failure (CHF), usually ambulates well. Carries her groceries without any difficulty. The hospitalist was called to do a preoperative medical clearance and admit for left hip fracture. Orthopedic surgeon, Dr. Akbar, has been informed. The patient is to be nothing by mouth after midnight for surgery in the morning. HOSPITAL COURSE: Patient was admitted to the hospital for left intertrochanteric hip fracture. Patient was medically optimized and cleared for surgery. She underwent surgical correction on 04/26/2019. Home medications were continued. For her chronic diseases. She was discharged on incentive spirometry, as well as oxycodone and morphine when necessary for pain. DISCHARGE MEDICATIONS: Please see below. ALLERGIES: Please see below. PHYSICAL EXAMINATION ON DISCHARGE: VITAL SIGNS: Please see below. GENERAL: Pleasant sitting up in bed awake alert oriented speaking in complete sentences no acute distress HEENT: Moist mucous membranes no elevation in CVP CARDIOVASCULAR: Normal rate and rhythm , S1 S2 regular no additional heart sounds appreciated. RESPIRATORY: Clear to auscultation bilaterally. ABDOMINAL: Bowel sounds present abdomen soft and nontender EXTREMITIES: No clubbing cyanosis or edema. Left lateral thigh surgical dress ings were examined and negative for discharge or pus. Site around dressing was not tender to touch as well. NEUROLOGICAL: cranial nerves 2 through 12 grossly intact no gross focal deficits appreciated PSYCHOLOGICAL: Appropriate LABORATORY DATA: Please see below. IMAGIN04/25/2019 Knee x-ray: The compartments are symmetric and relatively well- maintained. There is no acute fracture or destructive osseous lesion Femur x-ray: Intertrochanteric fracture Chest x-ray: Evidence of an enlarging nodule in the right lower lobe seen on this frontal view. CT chest recommended Extremity CT: Intertrochanteric left femoral fracture Chest CT: No acute disease PROGNOSIS: Good ACTIVITY: [As tolerated]. DIET: Consistent carbohydrate diet DISCHARGE PLAN: -Continue medications as prescribed -F/U w/ provider in facility DISPOSITION: 62 D/T Rehab Facility. DISCHARGE CONDITION: [Stable]. TIME SPENT ON DISCHARGE: Greater than 30 minutes. Vital Signs/I&Os Vital Signs Date Time Temp Pulse Resp B/P (MAP) Pulse Ox O2 Delivery O2 Flow Rate FiO2 04/27/19 15:51 18 Room Air 04/27/19 14:15 97.3 76 2.0 04/27/19 09:41 124/82 04/27/19 07:45 98 I&O- Last 24 Hours up to 6 AM 04/28/19 06:00 Output Total 375 ml Balance -375 ml Laboratory Data Labs 24H Laboratory Tests 2 04/27/19 11:30: Bedside Glucose (Misc Panel) 170H FSBS Laboratory Tests Test 04/27/19 11:30 Range/Units Bedside Glucose (Misc Panel) 170 80-115 MG/DL Discharge Medications Scheduled Amlodipine Besylate (Amlodipine Besylate) 5 Mg Tablet, 5 MG PO DAILY, (Reported) Aspirin (Aspirin) 81 Mg Tab.chew, 81 MG PO DAILY, (Reported) Atorvastatin Calcium (Atorvastatin Calcium) 20 Mg Tablet, 20 MG PO DAILY, (Reported) Enalapril Maleate (Enalapril Maleate) 20 Mg Tab, 20 MG PO DAILY, (Reported) Gabapentin (Gabapentin) 300 Mg Cap, 300 MG PO TID, (Reported) Glimepiride (Glimepiride) 4 Mg Tablet, 4 MG PO DAILY, (Reported) Liraglutide (Victoza 2-Robby) 18 Mg/3 Ml Inj, 1.8 MG SC DAILY, (Reported) Metformin HCl (Metformin HCl) 1,000 Mg Tab, 2,000 MG PO QPM, (Reported) [place]-3/Dha/Epa/Fish Oil (Fish Oil EC 1,000 mg Softgel) 1 Cap Cap, 1,000 MG PO DAILY, (Reported) Omeprazole (Omeprazole) 40 Mg Cap, 40 MG PO DAILY, (Reported) Quetiapine Fumarate (Seroquel) 25 Mg Tab, 25 MG PO QHS, (Reported) Ranitidine Hcl (Ranitidine HCl) 150 Mg Tab, 1 TAB PO QHS, (Reported) Sennosides/Docusate Sodium (Senna Plus Tablet) 1 Each Tablet, 2 TAB PO QHS, ( Reported) Scheduled PRN Acetaminophen (Acetaminophen) 325 Mg Tablet, 650 MG PO Q4H PRN for PAIN / FEVER, (Reported) Baclofen (Baclofen) 10 Mg Tablet, 10 MG PO QID PRN for MUSCLE SPASMS, (Reported) Fluticasone Propionate (Flonase Allergy Relief) 9.9 Ml [place].susp, 1 SPRAY NA DAILY PRN for CONGESTION, (Reported) Hydrocodone/Acetaminophen ([place] 5-325 Tablet) 1 Each Tablet, 1 TAB PO BID PRN for PAIN, (Reported) Allergies Coded Allergies: Sulfa (Sulfonamide Antibiotics) (Verified Allergy, Unknown, upset stomach, 04/25/19) ATTENDING NOTE I have personally evaluated and examined the patient. Discussed with residents and student regarding plan of care and agree with the above assessment and plan. KAREN PA OMS-3 Apr 28, 2019 10:36 XENIA CHATTERJEE MD Apr 28, 2019 13:36
== END 2019-04-27 16:00 | DRG 482 ==
LOC: M ED 14:31 → EDBD 14:31 → M ED INP 17:17 → M MS5PR 18:49
PROVIDERS: ADMIT General Practice; ATTEND Student in an Organized Health Care Education/Training Program
PROC: 0QS704Z Reposition Left Upper Femur with Internal Fixation Device, Open Approach (ICD-10-PCS; principal; 2019-04-26 18:00)
DX: S72.102A Unspecified trochanteric fracture of left femur, initial encounter for closed fracture (principal); R29.6 Repeated falls; E11.9 Type 2 diabetes mellitus without complications; G89.29 Other chronic pain; I10 Essential (primary) hypertension; Z79.82 Long term (current) use of aspirin; Z79.899 Other long term (current) drug therapy; Z88.2 Allergy status to sulfonamides; K21.9 Gastro-esophageal reflux disease without esophagitis; M19.90 Unspecified osteoarthritis, unspecified site; W01.0XXA Fall on same level from slipping, tripping and stumbling without subsequent striking against object, initial encounter; Y92.009 Unspecified place in unspecified non-institutional (private) residence as the place of occurrence of the external cause; E78.5 Hyperlipidemia, unspecified

== ENCOUNTER 2019-04-27 15:58 | Inpatient (IN) | payer MEDICARE, MEDICAID ==
[~2019-04-27] VITALS: Ht 162.6 cm; Wt 108.9 kg
[~2019-04-27 15:58] MED LIST changes: +ACET-908 PO; +ASPI81CH48 PO; +ATOR1TAB21 PO; +BACL10TA8 PO; +FLON1SPR; +GLIM4TAB3 PO; +NORC1TAB7 PO; +SENN-52 PO
[2019-04-27 16:30] VITALS: BP 136/61
[2019-04-27] MEDS ORDERED: DEXTROSE 50% 50 ML SYRINGE IV PRN (18:45)
[2019-04-27] MEDS ORDERED: BACLOFEN 5MG PER 1/2 TABLET PO PRN (18:45)
[2019-04-27] MEDS ORDERED: GLUCOSE 4 GM CHEW TABLET PO PRN (18:45)
[2019-04-27] MEDS ORDERED: GLUCAGON FOR INJ 1 MG VIAL (J1610) SC PRN (18:45)
[2019-04-27 20:00] VITALS: BP 114/55
[2019-04-27] MEDS: IPRATROPIUM 0.5MG/ALBUTEROL 2.5MG INH SOL UD 3ML (DUONEB)(J7620) NEB SCH (20:00)
[2019-04-27] MEDS: BACLOFEN 5MG PER 1/2 TABLET PO SCH (20:33)
[2019-04-27] MEDS: ACETAMINOPHEN 500 MG TAB PO SCH (20:33)
[2019-04-27] MEDS: DOCUSATE SODIUM 100 MG CAP PO SCH (20:33)
[2019-04-27] MEDS: GABAPENTIN 300 MG CAP PO SCH (20:33)
[2019-04-27] MEDS: RIVAROXABAN 10 MG TAB (XARELTO) PO SCH (20:33)
[2019-04-27] MEDS: SENNA 8.6 MG TAB (SENOKOT) PO SCH (20:33)
[2019-04-27] MEDS: oxyCODONE 5MG TAB PO PRN (20:34)
[2019-04-27] MEDS: FLUTICASONE PROP 0.05% NASAL SPRAY 16 GM (FLONASE) NARES SCH (20:35)
[2019-04-27] MEDS: raNITIdine SYRUP 150 MG/10 ML UDC PO SCH (20:45)
[2019-04-27] MEDS: metFORMIN XR 500MG TAB *GLUCOPHAGE XR PO SCH (20:48)
[2019-04-27] MEDS: HumaLOG INSULIN (NovoLOG) PER UNIT SC SCH (20:49)
[2019-04-28] MEDS: QUEtiapine FUMARATE 25 MG TAB PO SCH ×2 (00:01→20:58)
[2019-04-28] MEDS: oxyCODONE 5MG TAB PO PRN ×4 (02:22→20:58)
[2019-04-28 06:00] VITALS: BP 151/71
[2019-04-28 06:59] LABS: BASO # 0.1 10^3/uL (0.0-0.2); BASO % 0.6 % (0.0-1.0); EOS # 0.3 10^3/uL (0.0-0.5); EOS % 3.3 % (0.0-3.0); HEMATOCRIT 31.3 % (36.0-47.0); HEMOGLOBIN 9.8 g/dl (12.0-15.5); LYMPH # 1.6 10^3/uL (1.5-5.0); LYMPH % 15.4 % (24.0-44.0); MEAN CORPUSCULAR HEMOGLOBIN 28.2 pg (27.0-33.0); MEAN CORPUSCULAR HGB CONC 31.3 g/dl (32.0-36.5); MEAN CORPUSCULAR VOLUME 89.9 fl (80.0-96.0); MONO # 0.9 10^3/uL (0.0-0.8); MONO % 8.6 % (0.0-5.0); NEUTROPHILS # 7.2 10^3/uL (1.5-8.5); NEUTROPHILS % 71.7 % (36.0-66.0); PLATELET COUNT, AUTOMATED 240 10^3/uL (150-450); RED BLOOD COUNT 3.48 10^6/uL (4.00-5.40); WHITE BLOOD COUNT 10.1 10^3/uL (4.0-10.0)
[2019-04-28] MEDS: HumaLOG INSULIN (NovoLOG) PER UNIT SC SCH ×4 (07:30→20:44)
[2019-04-28 07:48] LABS: CALCIUM LEVEL 8.3 MG/DL (8.8-10.2); CREATININE FOR GFR 1.06 MG/DL (0.55-1.30); GLOMERULAR FILTRATION RATE 55.7 (>45); POTASSIUM SERUM 4.2 MEQ/L (3.5-5.1); TOTAL PROTEIN 7.1 GM/DL (6.4-8.2)
[2019-04-28] MEDS: DOCUSATE SODIUM 100 MG CAP PO SCH ×2 (07:49→20:56)
[2019-04-28] MEDS: OMEGA-3 1000MG CAPSULE PO SCH (07:49)
[2019-04-28] MEDS: BACLOFEN 5MG PER 1/2 TABLET PO SCH ×3 (07:50→17:39)
[2019-04-28] MEDS: OMEPRAZOLE 20 MG CAP PO SCH (07:50)
[2019-04-28] MEDS: amLODIPine 5 MG TAB PO SCH (07:50)
[2019-04-28] MEDS: ATORVASTATIN 20 MG TAB PO SCH (07:52)
[2019-04-28] MEDS: ACETAMINOPHEN 500 MG TAB PO SCH ×3 (07:52→20:57)
[2019-04-28] MEDS: ASPIRIN 81 MG CHEW TABLET PO SCH (07:52)
[2019-04-28] MEDS: GLIMEPIRIDE 2 MG TAB PO SCH (07:52)
[2019-04-28] MEDS: VICTOZA SQ SCH (07:53)
[2019-04-28] MEDS: ENALAPRIL MALEATE 10 MG TAB PO SCH (07:56)
[2019-04-28] MEDS: FLUTICASONE PROP 0.05% NASAL SPRAY 16 GM (FLONASE) NARES SCH ×2 (07:59→20:56)
[2019-04-28] MEDS: IPRATROPIUM 0.5MG/ALBUTEROL 2.5MG INH SOL UD 3ML (DUONEB)(J7620) NEB SCH ×3 (08:00→20:31)
[2019-04-28] MEDS: GABAPENTIN 300 MG CAP PO SCH ×3 (08:01→20:58)
[2019-04-28] MEDS: MOM 30ML SUSPENSION UDC PO PRN (08:01)
--- NOTE | 2019-04-28 11:16 | IPNPDOC ---
Date Seen The patient was seen on 04/28/19. Progress Note SUBJECTIVE: Patient is 63F with PMH DM and HTN recently admitted for repair of L. intert rochanteric Hip fracture with orthopedic surgery now transferred to ARU for continue Rehab. Patient reported soreness in her L. hip but tolerable. Has not started PT yet this morning when seen. Afebrile overnight, WBC 10.1 OBJECTIVE PHYSICAL EXAMINATION: VITAL SIGNS: Please see below. General: No acute distress, Alert Eyes: Normal sclera, EOMI, EKTA HENT: Atraumatic, neck supple, moist mucous membranes Cardiovascular: Normal rate, normal rhythm. No murmurs appreciated. Pulmonary: Clear to auscultation b/l, no wheezing GI: Soft, nontender, nondistended Skin: Warm and dry Neuro: CN grossly intact. No focal deficits. Strengths equal b/l. Psych: oriented x 3 LABORATORY DATA, IMAGING STUDIES, MICROBIOLOGY: Please see below. DVT prophylaxis ordered?: Xarelto ASSESSMENT AND PLAN: 1. L. hip fracture - s/p orthopedic repair. - c/w PT/OT. - Pain control. Xarelto for DVT ppx. 2. HTN - BP 150s this morning. - Resume home medications. Norvasc 5mg, HCTZ 25mg, and Enalapril 20 mg daily. 3. DM - resume metformin and glimepiride with ISS coverage. - Monitor BS ACHS. 4. HLD - c/w atorvastatin 20 mg 5. Chronic low back pain - Tylenol, Baclofen PRN. Also on oxycodone. VS, I&O, 24H, Fishbone Vital Signs/I&O Vital Signs Date Time Temp Pulse Resp B/P (MAP) Pulse Ox O2 Delivery O2 Flow Rate FiO2 04/28/19 07:56 151/71 04/28/19 07:51 22 Room Air 04/28/19 07:50 88 04/28/19 06:00 97.6 97 2.0 I&O- Last 24 Hours up to 6 AM 04/28/19 06:00 Intake Total 595 ml Output Total 350 ml Balance 245 ml Laboratory Data 24H LABS Laboratory Tests 2 04/27/19 16:46: Bedside Glucose (Misc Panel) 191H 04/27/19 20:13: Bedside Glucose (Misc Panel) 262H 04/28/19 06:21: Immature Granulocyte % (Auto) 0.4, Neutrophils (%) (Auto) 71.7H, Lymphocytes (%) (Auto) 15.4L, Monocytes (%) (Auto) 8.6H, Eosinophils (%) (Auto) 3.3H, Basophils (%) (Auto) 0.6, Neutrophils # (Auto) 7.2, Lymphocytes # (Auto) 1.6, Monocytes # (Auto) 0.9H, Eosinophils # (Auto) 0.3, Basophils # (Auto) 0.1, Nucleated Red Blood Cells % (auto) 0.0, Anion Gap 5L, Glomerular Filtration Rate 55.7, Calcium Level 8.3L, Total Bilirubin 1.0, Aspartate Amino Transf (AST/SGOT) 21, Alanine Aminotransferase (ALT/SGPT) 21, Alkaline Phosphatase 73, Total Protein 7.1, Albumin 3.0L, Albumin/Globulin Ratio 0.73L 04/28/19 06:31: Bedside Glucose (Misc Panel) 149H CBC/BMP Laboratory Tests 04/28/19 06:21 XENIA CHATTERJEE MD Apr 28, 2019 11:16
[2019-04-28] MEDS: ANALGESIC BALM CRM 120 GM TOP SCH ×3 (12:40→20:59)
[2019-04-28] MEDS: LIDOCAINE 5% (LIDODERM) PATCH TD SCH (12:41)
[2019-04-28] MEDS: hydroCHLOROthiazide 25 MG TAB PO SCH (12:41)
--- NOTE | 2019-04-28 13:33 | HPEPDOC ---
Test Man Note DATE OF ADMISSION: 04-27-19 SOURCE OF ADMISSION INFORMATION: [facility] records and patient CHIEF COMPLAINT: left hip fracture HISTORY OF PRESENT ILLNESS: 63F pmh HTN, DM, Allergic rhinitis, Tourettes who fell at home onto her left side after slipping in the mud and presented to [facility] ED on 04-25-19 with difficulty walking. Hip X-ray showed a left intertrochanteric fracture. CXR did not reveal rib fractures, however it did show, enlarging nodule in the right lower lobe. She was evaluated by orthopedics, was cleared by medicine, and underwent a left hip ORIF without complications on 04-26-19 and made WBAT. She had episodes of wheezing and shortness of breath following surgery with a drop in Hgb from 13.8 to 10.2 and required supplemental oxygen which she reports she does not use at home. She was seen by therapy who found her to be well below her prior level of function for mobility and ADL management and deemed medically appropriate for discharge to ARU on 04-27-19. On initial eval patient reports her left ankle is sore after the fall and she is having left sided rib cage pain as well. REVIEW OF SYSTEMS: The following is a completed review of systems and has been reviewed. Review of systems otherwise unremarkable. PAIN: Patient self reports left hip, ankle, and rib cage pain EYES: No recent vision changes EARS, NOSE, & THROAT: No throat pain, or dysphagia, or rhinorrhea CARDIOVASCULAR: Denies chest pain or palpitations PULMONARY: Denies shortness of breath/cough GASTROINTESTINAL: Denies constipation/diarrhea GENITOURINARY: denies dysuria MUSCULOSKELETAL: left hip fracture NEUROLOGICAL:denies tremor or seizure activity HEMATOLOGICAL: denies easy bruising SKIN: left hip incision PSYCHIATRIC: +Tourette's All other review of systems found to be negative. PAST MEDICAL HISTORY: as per HPI PAST SURGICAL HISTORY: Lap-cholecystectomy 2011, left ankle surgery 1993, YO/BSO, lumbar surgery 2013, bilat CTS, esophageal balloon expansion 2017 ALLERGIES: Please see below. MEDICATIONS: Please see below. FAMILY HISTORY: Throat cancer, NM, pancreatic cancer and melanoma, DM, CAD SOCIAL HISTORY: Former heavy ETOH use 30 years ago, no smoking or illicit drugs DIET: consistent carb PHYSICAL EXAMINATION: VITAL SIGNS: Please see below. GENERAL: Pleasant and cooperative. No acute distress. HEENT: PERRL. Extraocular movements intact. Clear conjunctiva CARDIOVASCULAR: Regular rate and rhythm. No murmurs, rubs, or gallops LUNGS: +scattered wheezes. No rhonchi ABDOMEN: Soft, nontender, nondistended. Positive bowel sounds. Normal active bowel sounds NEUROLOGICAL: Alert and oriented times three. Cranial nerves II through XII grossly intact. Sensation grossly intact including first web space left foot EXTREMITIES: 5\5 strength bilateral upper extremities. 5\5 strength right lower extremity. 5/5 strength left ankle DF/PF/EHL extension (limited due to recent surgery) (+) bilat LE edema (-) Homans bilat Left ankle- pain with varus strain, no instability, Mild TTP Lateral malleoli without swelling SKIN: left hip with incisions, no induration, swelling, or erythema LABORATORY DATA: Please see below. IMAGING:Imaging documentation personally reviewed by record FUNCTIONAL STATUS: Premorbid: Independent with all activities of daily life as well as mobility On Admission: Contact-Min assist ambulating 20 feet and for bathing, upper body dressing, bed chair and wheelchair transfers, toilet transfers, ambulation. GOALS: Modified independent community distances with RW, functional transfers, stairs, toileting, bathing, medical optimization, assess for DME needs ASSESSMENT:63-year-old F with past medical history of HTN who presents status post fall with left hip fracture PLAN: 1. Rehab- PT/OT advance gait training and ADL management, WBAT to the LLE, strengthen/maintain ROM/stretch bilat UE and LE 2. Neuro: no active concerns 3. Cardiac: pmh HTN and HLD c/u BP meds, ASA, and statin therapy -morbid obesity, will provide dietary counseling for weight management 4. Resp: no charted hx of COPD/asthma, however patient with hx of seasonal allergies and allergic rhinitis, wheezing on today's exam may be due to reactive airway disease- Duonebs ordered standing, supplemental 02 provided, will attempt to wean -recent CXR with right lower lung nodule, will need pulmonology referral for this and suspected COPD -monitor for respiratory infection 5. Endo: pmh DM c/u Victoza (patient's own med), ISS coverage, and c/u metformin 6. GI ppx: ranitidine and omeprazole 7. DVT ppx: TEDs and Xarelto 8. Ortho: s/p left hip ORIF- ortho consulted 9. Psych: tourett's c/u seroquel 25mg qHS 10. Pain: Tylenol, baclofen, gabapentin, norco 11. Heme: post-op anemia, monitor and transfuse if <8 11. Dispo: TBD POST ADMISSION PHYSICIAN EVALUATION: Medical and functional status: Description of medical status, medical assessment: As above. Rehabilitation diagnosis and current and prior cold morbid medical conditions as above. Risk of complications and plans to mitigate them as above. Description of functional status current status is as above. Prior status as above. Status compared to preadmission: There are no clinically significant differences between the patient's current status and the information described on the preadmission screening document. Treatment plan anticipated: Treatment plan is as described above. Required disciplines including physical therapy, occupational therapy, others as noted above Intensity of services: 3 hours a day, 6 days a week. Special considerations: There are no specific special or safety considerations that would likely preclude immediate implementation of an intensive rehabilitation program or subsequently influence the plan of care ATTESTATION: Considering all the information above, it is my best judgment that this patient requires intensive rehabilitation therapy as described above and an inpatient hospital environment due to the complexity of nursing, medical, and rehabilitation needs required by the patient. Furthermore, this patient can reasonably be expected to participate in an benefit from an inpatient rehabilitation stay with an interdisciplinary team approach to the delivery of r ehabilitation care under the direction and supervision of rehabilitation physician PROGNOSIS: Excellent ESTIMATED LENGTH OF STAY:14-16 days. PROJECTED DISCHARGE DESTINATION: Home with family support and any durable medical equipment required to increase functional safety and mobility. TIME SPENT COUNSELING AND COORDINATING INITIAL CARE: Greater than 70 minutes. Vital Signs Vital Sign - Last 24 Hours 04/27/19 04/27/19 04/27/19 04/27/19 16:30 20:00 20:34 21:30 Temp 97.7 99.5 Pulse 94 83 Resp 20 19 16 16 B/P (MAP) 136/61 (86) 114/55 (74) Pulse Ox 91 91 O2 Delivery Nasal Cannula Room Air O2 Flow Rate 1.0 04/27/19 04/28/19 04/28/19 04/28/19 22:00 02:22 03:07 06:00 Temp 97.6 Pulse 82 Resp 16 16 18 B/P (MAP) 151/71 (97) Pulse Ox 97 O2 Delivery Nasal Cannula O2 Flow Rate 2.0 2.0 04/28/19 04/28/19 04/28/19 04/28/19 07:50 07:51 07:56 08:30 Pulse 88 Resp 22 20 B/P (MAP) 151/71 151/71 O2 Delivery Room Air Room Air 04/28/19 12:47 Resp 20 O2 Delivery Room Air Laboratory Data CBC/BMP Laboratory Tests 04/28/19 06:21 Labs 24H Laboratory Tests 2 04/27/19 16:46: Bedside Glucose (Misc Panel) 191H 04/27/19 20:13: Bedside Glucose (Misc Panel) 262H 04/28/19 06:21: Immature Granulocyte % (Auto) 0.4, Neutrophils (%) (Auto) 71.7H, Lymphocytes (%) (Auto) 15.4L, Monocytes (%) (Auto) 8.6H, Eosinophils (%) (Auto) 3.3H, Basophils (%) (Auto) 0.6, Neutrophils # (Auto) 7.2, Lymphocytes # (Auto) 1.6, Monocytes # (Auto) 0.9H, Eosinophils # (Auto) 0.3, Basophils # (Auto) 0.1, Nucleated Red Blood Cells % (auto) 0.0, Anion Gap 5L, Glomerular Filtration Rate 55.7, Calcium Level 8.3L, Total Bilirubin 1.0, Aspartate Amino Transf (AST/SGOT) 21, Alanine Aminotransferase (ALT/SGPT) 21, Alkaline Phosphatase 73, Total Protein 7.1, Albumin 3.0L, Albumin/Globulin Ratio 0.73L 04/28/19 06:31: Bedside Glucose (Misc Panel) 149H 04/28/19 12:18: Bedside Glucose (Misc Panel) 162H FSBS Laboratory Tests Test 04/27/19 16:46 04/27/19 20:13 04/28/19 06:31 04/28/19 12:18 Range/Units Bedside Glucose (Misc Panel) 191 262 149 162 80-115 MG/DL Home Medications Scheduled Amlodipine Besylate (Amlodipine Besylate) 5 Mg Tablet, 5 MG PO DAILY, (Reported) Aspirin (Aspirin) 81 Mg Tab.chew, 81 MG PO DAILY, (Reported) Atorvastatin Calcium (Atorvastatin Calcium) 20 Mg Tablet, 20 MG PO DAILY, (Reported) Enalapril Maleate (Enalapril Maleate) 20 Mg Tab, 20 MG PO DAILY, (Reported) Gabapentin (Gabapentin) 300 Mg Cap, 300 MG PO TID, (Reported) Glimepiride (Glimepiride) 4 Mg Tablet, 4 MG PO DAILY, (Reported) Liraglutide (Victoza 2-Robby) 18 Mg/3 Ml Inj, 1.8 MG SC DAILY, (Reported) Metformin HCl (Metformin HCl) 1,000 Mg Tab, 2,000 MG PO QPM, (Reported) Marana-3/Dha/Epa/Fish Oil (Fish Oil EC 1,000 mg Softgel) 1 Cap Cap, 1,000 MG PO DAILY, (Reported) Omeprazole (Omeprazole) 40 Mg Cap, 40 MG PO DAILY, (Reported) Quetiapine Fumarate (Seroquel) 25 Mg Tab, 25 MG PO QHS, (Reported) Ranitidine Hcl (Ranitidine HCl) 150 Mg Tab, 1 TAB PO QHS, (Reported) Sennosides/Docusate Sodium (Senna Plus Tablet) 1 Each Tablet, 2 TAB PO QHS, (Reported) Scheduled PRN Acetaminophen (Acetaminophen) 325 Mg Tablet, 650 MG PO Q4H PRN for PAIN / FEVER, (Reported) Baclofen (Baclofen) 10 Mg Tablet, 10 MG PO QID PRN for MUSCLE SPASMS, (Reported) Fluticasone Propionate (Flonase Allergy Relief) 9.9 Ml [place].susp, 1 SPRAY NA DAILY PRN for CONGESTION, (Reported) Hydrocodone/Acetaminophen ([place] 5-325 Tablet) 1 Each Tablet, 1 TAB PO BID PRN for PAIN, (Reported) Allergies Coded Allergies: Sulfa (Sulfonamide Antibiotics) (Verified Allergy, Unknown, upset stomach, 04/25/19) A-FIB/CHADSVASC A-FIB History Current/History of A-Fib/PAF?: No JUAN J RODRIGUEZ MD Apr 28, 2019 13:33
--- NOTE | 2019-04-28 13:36 | IPNPDOC ---
PM&R Progress Note DATE OF SERVICE: Apr 28, 2019 Aircraft [employer] Progress Note Subjective: Patient reporting her left rib cage pain is bothering her and she would like to try a topical analgesic. She was reassured that both CT and recent CXR did not show rib fractures. She reports she usually takes hydrochlorothiazide at home. REVIEW OF SYSTEMS: The following is a completed review of systems and has been reviewed. Review of systems otherwise unremarkable. PAIN: Patient self reports left hip, ankle, and rib cage pain EYES: No recent vision changes EARS, NOSE, & THROAT: No throat pain, or dysphagia, or rhinorrhea CARDIOVASCULAR: Denies chest pain or palpitations PULMONARY: Denies shortness of breath/cough GASTROINTESTINAL: Denies constipation/diarrhea GENITOURINARY: denies dysuria MUSCULOSKELETAL: left hip fracture NEUROLOGICAL:denies tremor or seizure activity HEMATOLOGICAL: denies easy bruising SKIN: left hip incision PSYCHIATRIC: +Tourette's All other review of systems found to be negative. PHYSICAL EXAMINATION: VITAL SIGNS: Please see below. GENERAL: Pleasant and cooperative. No acute distress. HEENT: PERRL. Extraocular movements intact. Clear conjunctiva CARDIOVASCULAR: Regular rate and rhythm. No murmurs, rubs, or gallops LUNGS: CTA, no wheezes. No rhonchi ABDOMEN: Soft, nontender, nondistended. Positive bowel sounds. Normal active bowel sounds NEUROLOGICAL: Alert and oriented times three. Cranial nerves II through XII grossly intact. Sensation grossly intact including first web space left foot EXTREMITIES: 5\5 strength bilateral upper extremities. 5\5 strength right lower extremity. 5/5 strength left ankle DF/PF/EHL extension (limited due to recent surgery) (+) bilat LE edema (-) Homans bilat Left ankle- pain with varus strain, no instability, Mild TTP Lateral malleoli without swelling SKIN: left hip with incisions, no induration, swelling, or erythema ASSESSMENT:63-year-old F with past medical history of HTN who presents status post fall with left hip fracture PLAN: 1. Rehab- PT/OT advance gait training and ADL management, WBAT to the LLE, strengthen/maintain ROM/stretch bilat UE and LE 2. Neuro: no active concerns 3. Cardiac: pmh HTN and HLD c/u BP meds, ASA, and statin therapy -patient reporting she takes HCTZ at home, will start today -morbid obesity, will provide dietary counseling for weight management 4. Resp: no charted hx of COPD/asthma, however patient with hx of seasonal all ergies and allergic rhinitis, possible RAD, wheezing improved today -c/u Duonebs and supplemental 02 provided, will attempt to wean -recent CXR with right lower lung nodule, will need pulmonology referral for this and suspected COPD -monitor for respiratory infection 5. Endo: pmh DM c/u Victoza (patient's own med), ISS coverage, and c/u metformin 6. GI ppx: ranitidine and omeprazole 7. DVT ppx: TEDs and Xarelto 8. Ortho: s/p left hip ORIF- ortho consulted -left ankle pain, able to bear weight with no notable joint swelling, acewrap during therapy 9. Psych: Tourette's c/u seroquel 25mg qHS 10. Pain: Tylenol, baclofen, gabapentin, norco, lidoderm patch to left rib cage and menthol salicylate to left ankle 11. Heme: post-op anemia, monitor and transfuse if <8 11. Dispo: TBD Allergies Coded Allergies: Sulfa (Sulfonamide Antibiotics) (Verified Allergy, Unknown, upset stomach, 04/25/19) Vital Signs Vital Signs Date Time Temp Pulse Resp B/P (MAP) Pulse Ox O2 Delivery O2 Flow Rate FiO2 04/28/19 12:47 20 Room Air 04/28/19 07:56 151/71 04/28/19 07:50 88 04/28/19 06:00 97.6 97 2.0 Laboratory Data CBC/BMP Laboratory Tests 04/28/19 06:21 Labs 24H Laboratory Tests 2 04/27/19 16:46: Bedside Glucose (Misc Panel) 191H 04/27/19 20:13: Bedside Glucose (Misc Panel) 262H 04/28/19 06:21: Immature Granulocyte % (Auto) 0.4, Neutrophils (%) (Auto) 71.7H, Lymphocytes (%) (Auto) 15.4L, Monocytes (%) (Auto) 8.6H, Eosinophils (%) (Auto) 3.3H, Basophils (%) (Auto) 0.6, Neutrophils # (Auto) 7.2, Lymphocytes # (Auto) 1.6, Monocytes # (Auto) 0.9H, Eosinophils # (Auto) 0.3, Basophils # (Auto) 0.1, Nucleated Red Blood Cells % (auto) 0.0, Anion Gap 5L, Glomerular Filtration Rate 55.7, Calcium Level 8.3L, Total Bilirubin 1.0, Aspartate Amino Transf (AST/SGOT) 21, Alanine Aminotransferase (ALT/SGPT) 21, Alkaline Phosphatase 73, Total Protein 7.1, Albumin 3.0L, Albumin/Globulin Ratio 0.73L 04/28/19 06:31: Bedside Glucose (Misc Panel) 149H 04/28/19 12:18: Bedside Glucose (Misc Panel) 162H Current Medications Current Medications Current Medications Medications (Trade) Dose Ordered Sig/Noemi Route PRN Reason Start Time Stop Time Status Last Admin Dose Admin Acetaminophen (Tylenol Tab) 1,000 mg TID PO 04/27/19 21:00 04/28/19 07:52 Albuterol/ Ipratropium (Duoneb (Ipr 0.5mg/Alb 2.5mg)) 3 ml RTID NEB 04/27/19 20:00 04/28/19 08:00 Amlodipine Besylate (Norvasc) 5 mg DAILY PO 04/28/19 09:00 04/28/19 07:50 Aspirin (Aspirin Chewable) 81 mg DAILY PO 04/28/19 09:00 04/28/19 07:52 Atorvastatin Calcium (Lipitor) 20 mg DAILY PO 04/28/19 09:00 04/28/19 07:52 Baclofen (Lioresal) 5 mg DAILY PRN PO SPASMS 04/27/19 18:45 Baclofen (Lioresal) 5 mg TID@0800,1300,1800 PO 04/27/19 18:00 04/28/19 12:41 Dextrose (Dextrose 50%) 25 ml ASDIRECTED PRN IV SEE LABEL COMMENTS 04/27/19 18:45 Docusate Sodium (Colace) 100 mg BID PO 04/27/19 21:00 04/28/19 07:49 Enalapril Maleate (Vasotec) 20 mg DAILY PO 04/28/19 09:00 04/28/19 07:56 Fish Oil (Elrama-3 (1000mg)) 1 cap DAILY PO 04/28/19 09:00 04/28/19 07:49 Fluticasone Propionate (Flonase 0.05% Nasal [place]) 1 spray BID NARES 04/27/19 21:00 Gabapentin (Neurontin) 300 mg TID PO 04/27/19 21:00 04/28/19 08:01 Glimepiride (Amaryl) 4 mg DAILY@0730 PO 04/28/19 07:30 04/28/19 07:52 Glucagon (Glucagon) 1 mg ASDIRECTED PRN SC SEE LABEL COMMENTS 04/27/19 18:45 Glucose (Glucose) 16 GM ASDIRECTED PRN PO SEE LABEL COMMENTS 04/27/19 18:45 Hydrochlorothiazide (Hydrodiuril) 25 mg DAILY PO 04/28/19 09:00 04/28/19 12:41 Insulin Human Lispro (HumaLOG INSULIN) SEE PROTOCOL TABLE AC SC 04/28/19 07:30 04/28/19 12:39 Insulin Human Lispro (HumaLOG INSULIN) SEE PROTOCOL TABLE QHS SC 04/27/19 21:00 04/27/19 20:49 Lidocaine (Lidoderm Patch) 1 patch DAILY TD 04/28/19 09:00 04/28/19 12:41 Magnesium Hydroxide (Milk Of Magnesia) 30 ml DAILYPRN PRN PO CONSTIPATION 04/28/19 09:00 04/28/19 08:01 Menthol/Methyl Salicylate (Bengay Cream) 1 dose TID TOP 04/28/19 09:00 04/28/19 12:40 Metformin HCl (Glucophage Xr) 2,000 mg DAILY@18 PO 04/27/19 18:00 04/27/19 20:48 Miscellaneous (Unresolved Patient Own Med Order) SEE LABEL COMMENTS DAILY XX 04/27/19 09:00 04/27/19 19:57 DC Non-Formulary Medication ( See Comment Field Below ) REMOVE LIDODERM PATCH DAILY@21 XX 04/28/19 21:00 Omeprazole (PriLOSEC) 40 mg DAILY PO 04/28/19 09:00 04/28/19 07:50 Oxycodone HCl (Roxicodone, Oxyir) 5 mg Q4HP PRN PO PAIN 04/27/19 18:45 04/28/19 07:51 Patient Own Medication (Patient'S Own Med) victoza INJECTION(18mg/ 3mL) INJECT 1.... DAILY SQ 04/28/19 09:00 04/28/19 07:53 Quetiapine Fumarate (SEROquel) 25 mg QHS PO 04/27/19 21:00 Ranitidine HCl (ZANTAC Syrup) 150 mg QHS PO 04/27/19 21:00 04/27/19 20:45 Rivaroxaban (Xarelto) 10 mg DAILY@1800 PO 04/27/19 18:00 04/27/19 20:33 Senna (Senokot) 1 tab QHS PO 04/27/19 21:00 04/27/19 20:33 JUAN J RODRIGUEZ MD Apr 28, 2019 13:36
[2019-04-28 14:00] VITALS: BP 150/67
[2019-04-28] MEDS: metFORMIN XR 500MG TAB *GLUCOPHAGE XR PO SCH (17:39)
[2019-04-28] MEDS: RIVAROXABAN 10 MG TAB (XARELTO) PO SCH (17:43)
[2019-04-28 20:00] VITALS: BP 124/68
[2019-04-28] MEDS: raNITIdine SYRUP 150 MG/10 ML UDC PO SCH (20:56)
[2019-04-28] MEDS: SENNA 8.6 MG TAB (SENOKOT) PO SCH (20:57)
[2019-04-28] MEDS: **NOTE PATIENT COMMENT** MISC XX SCH (21:06)
[2019-04-29] MEDS: oxyCODONE 5MG TAB PO PRN ×4 (06:04→21:21)
--- NOTE | 2019-04-29 07:11 | REPVR ---
PROCEDURE INFORMATION: Exam: US Duplex Lower Extremity Veins Exam date and time: 04/29/2019 6:52 AM Age: 63 years old Clinical history: Injury or trauma; Injury history: Hip FX; Follow-up exam; Fracture, traumatic; Additional info: Recent immobility with hip fracture TECHNIQUE: Imaging protocol: Real-time duplex ultrasound of the Lower Extremities with 2-D westfall scale, color Doppler flow and spectral waveform analysis with image documentation. Complete exam focused on the bilateral lower extremity veins. COMPARISON: No relevant prior studies available. FINDINGS: Right deep veins: Unremarkable. The common femoral, femoral and popliteal veins are patent without thrombus. Normal Doppler waveforms. Normal compressibility and/or augmentation response. Right superficial veins: Saphenofemoral junction is patent without thrombus. Left deep veins: Unremarkable. The common femoral, femoral and popliteal veins are patent without thrombus. Normal Doppler waveforms. Normal compressibility and/or augmentation response. Left superficial veins: Saphenofemoral junction is patent without thrombus. Soft tissues: Unremarkable. IMPRESSION: No acute findings. No evidence of deep vein thrombosis in the lower extremities bilaterally. Electronically signed by: Arias Neff On 04/29/2019 07:10:42 AM
[2019-04-29] MEDS: HumaLOG INSULIN (NovoLOG) PER UNIT SC SCH ×4 (07:30→20:20)
[2019-04-29] MEDS: IPRATROPIUM 0.5MG/ALBUTEROL 2.5MG INH SOL UD 3ML (DUONEB)(J7620) NEB SCH ×3 (07:52→20:00)
--- NOTE | 2019-04-29 09:40 | IPNPDOC ---
Date Seen The patient was seen on 04/29/19. Progress Note SUBJECTIVE: Patient is 63F with PMH DM and HTN recently admitted for repair of L. intertrochanteric Hip fracture with orthopedic surgery now transferred to ARU for continue Rehab. Patient still complains of L. sided soreness. Reportedly has not had a bowel movement in several days. Also has concern for urinary retention. Noted to have high volume post void but uncertain about scan's accuracy. OBJECTIVE PHYSICAL EXAMINATION: VITAL SIGNS: Please see below. General: No acute distress, Alert Eyes: Normal sclera, EOMI, EKTA HENT: Atraumatic, neck supple, moist mucous membranes Cardiovascular: Normal rate, normal rhythm. No murmurs appreciated. Pulmonary: Clear to auscultation b/l, no wheezing GI: Soft, nontender, nondistended Skin: Warm and dry Neuro: CN grossly intact. No focal deficits. Strengths equal b/l. Psych: oriented x 3 LABORATORY DATA, IMAGING STUDIES, MICROBIOLOGY: Please see below. DVT prophylaxis ordered?: Xarelto ASSESSMENT AND PLAN: 1. L. hip fracture - s/p orthopedic repair. - c/w PT/OT. - Pain control. Xarelto for DVT ppx. 2. HTN - BP controlled. - Resumed home medications. Norvasc 5mg, HCTZ 25mg, and Enalapril 20 mg daily. 3. DM - resume metformin and glimepiride with ISS coverage. - Monitor BS ACHS. 4. HLD - c/w atorvastatin 20 mg 5. Chronic low back pain - Tylenol, Baclofen PRN. Also on oxycodone. 6. Suspected urinary retention - Patient is voiding, concern for possible high post void volume. - will monitor today. cath PRN if needed. 7. Constipation - Bowel regimen PRN with prune juice. VS, I&O, 24H, Fishbone Vital Signs/I&O Vital Signs Date Time Temp Pulse Resp B/P (MAP) Pulse Ox O2 Delivery O2 Flow Rate FiO2 04/29/19 07:39 20 04/28/19 21:00 1.0 04/28/19 20:00 98.3 78 124/68 (86) 97 Nasal Cannula I&O- Last 24 Hours up to 6 AM 04/29/19 06:00 Intake Total 2040 ml Output Total 1450 ml Balance 590 ml Laboratory Data 24H LABS Laboratory Tests 2 04/28/19 12:18: Bedside Glucose (Misc Panel) 162H 04/28/19 16:27: Bedside Glucose (Misc Panel) 103 04/28/19 19:48: Bedside Glucose (Misc Panel) 140H 04/29/19 05:41: Bedside Glucose (Misc Panel) 114 XENIA CHATTERJEE MD Apr 29, 2019 09:40
[2019-04-29] MEDS: MOM 30ML SUSPENSION UDC PO PRN (10:20)
[2019-04-29] MEDS: VICTOZA SQ SCH (10:21)
[2019-04-29] MEDS: LIDOCAINE 5% (LIDODERM) PATCH TD SCH (10:22)
[2019-04-29] MEDS: DOCUSATE SODIUM 100 MG CAP PO SCH ×2 (10:23→21:21)
[2019-04-29] MEDS: BACLOFEN 5MG PER 1/2 TABLET PO SCH ×3 (10:23→18:06)
[2019-04-29] MEDS: ASPIRIN 81 MG CHEW TABLET PO SCH (10:23)
[2019-04-29] MEDS: ENALAPRIL MALEATE 10 MG TAB PO SCH (10:24)
[2019-04-29] MEDS: OMEGA-3 1000MG CAPSULE PO SCH (10:24)
[2019-04-29] MEDS: hydroCHLOROthiazide 25 MG TAB PO SCH (10:25)
[2019-04-29] MEDS: ATORVASTATIN 20 MG TAB PO SCH (10:25)
[2019-04-29] MEDS: OMEPRAZOLE 20 MG CAP PO SCH (10:25)
[2019-04-29] MEDS: ACETAMINOPHEN 500 MG TAB PO SCH ×3 (10:26→21:21)
[2019-04-29] MEDS: GLIMEPIRIDE 2 MG TAB PO SCH (10:26)
[2019-04-29] MEDS: GABAPENTIN 300 MG CAP PO SCH ×3 (10:27→21:21)
[2019-04-29] MEDS: amLODIPine 5 MG TAB PO SCH (10:27)
[2019-04-29] MEDS: FLUTICASONE PROP 0.05% NASAL SPRAY 16 GM (FLONASE) NARES SCH ×2 (10:28→21:22)
[2019-04-29] MEDS: ANALGESIC BALM CRM 120 GM TOP SCH ×3 (10:28→21:22)
[2019-04-29] MEDS ORDERED: ONDANSETRON 4 MG ORAL DISINTEGRATING TAB (Q0162 PER 1MG) PO PRN (11:30)
[2019-04-29] MEDS ORDERED: BISACODYL 10 MG SUPP PR ONE (12:00)
[2019-04-29 14:00] VITALS: BP 122/68
[2019-04-29] MEDS: metFORMIN XR 500MG TAB *GLUCOPHAGE XR PO SCH (18:05)
[2019-04-29] MEDS: RIVAROXABAN 10 MG TAB (XARELTO) PO SCH (18:06)
[2019-04-29 20:00] VITALS: BP 126/64
[2019-04-29] MEDS: raNITIdine SYRUP 150 MG/10 ML UDC PO SCH (21:21)
[2019-04-29] MEDS: QUEtiapine FUMARATE 25 MG TAB PO SCH (21:21)
[2019-04-29] MEDS: SENNA 8.6 MG TAB (SENOKOT) PO SCH (21:21)
[2019-04-29] MEDS: **NOTE PATIENT COMMENT** MISC XX SCH (21:26)
[2019-04-30] MEDS: oxyCODONE 5MG TAB PO PRN ×4 (03:50→17:30)
[2019-04-30 06:00] VITALS: BP 128/75
[2019-04-30] MEDS: IPRATROPIUM 0.5MG/ALBUTEROL 2.5MG INH SOL UD 3ML (DUONEB)(J7620) NEB SCH ×3 (07:58→19:43)
[2019-04-30] MEDS: HumaLOG INSULIN (NovoLOG) PER UNIT SC SCH ×4 (08:00→21:00)
[2019-04-30] MEDS: ACETAMINOPHEN 500 MG TAB PO SCH ×3 (08:00→21:40)
[2019-04-30] MEDS: ENALAPRIL MALEATE 10 MG TAB PO SCH (08:01)
[2019-04-30] MEDS: ASPIRIN 81 MG CHEW TABLET PO SCH (08:01)
[2019-04-30] MEDS: OMEPRAZOLE 20 MG CAP PO SCH (08:01)
[2019-04-30] MEDS: amLODIPine 5 MG TAB PO SCH (08:01)
[2019-04-30] MEDS: DOCUSATE SODIUM 100 MG CAP PO SCH ×2 (08:02→21:41)
[2019-04-30] MEDS: GLIMEPIRIDE 2 MG TAB PO SCH (08:02)
[2019-04-30] MEDS: OMEGA-3 1000MG CAPSULE PO SCH (08:02)
[2019-04-30] MEDS: BACLOFEN 5MG PER 1/2 TABLET PO SCH ×3 (08:02→17:29)
[2019-04-30] MEDS: GABAPENTIN 300 MG CAP PO SCH ×3 (08:02→21:41)
[2019-04-30] MEDS: hydroCHLOROthiazide 25 MG TAB PO SCH (08:03)
[2019-04-30] MEDS: VICTOZA SQ SCH (08:03)
[2019-04-30] MEDS: ATORVASTATIN 20 MG TAB PO SCH (08:03)
[2019-04-30] MEDS: LIDOCAINE 5% (LIDODERM) PATCH TD SCH (08:03)
[2019-04-30] MEDS: ANALGESIC BALM CRM 120 GM TOP SCH ×3 (08:04→21:41)
[2019-04-30] MEDS: FLUTICASONE PROP 0.05% NASAL SPRAY 16 GM (FLONASE) NARES SCH ×2 (08:04→21:00)
--- NOTE | 2019-04-30 12:00 | IPNPDOC ---
Date Seen The patient was seen on 04/30/19. Progress Note SUBJECTIVE: Patient is 63F with PMH DM and HTN recently admitted for repair of L. intertrochanteric Hip fracture with orthopedic surgery now transferred to ARU for continue Rehab. Patient complains of significant pain on the L. lateral side of her rib where she fell. Worse with UE movements. No other complaints otherwise. OBJECTIVE PHYSICAL EXAMINATION: VITAL SIGNS: Please see below. General: No acute distress, Alert Eyes: Normal sclera, EOMI, EKTA HENT: Atraumatic, neck supple, moist mucous membranes Cardiovascular: Normal rate, normal rhythm. No murmurs appreciated. Pulmonary: Clear to auscultation b/l, no wheezing GI: Soft, nontender, nondistended Skin: Warm and dry Neuro: CN grossly intact. No focal deficits. Strengths equal b/l. Psych: oriented x 3 LABORATORY DATA, IMAGING STUDIES, MICROBIOLOGY: Please see below. DVT prophylaxis ordered?: Xarelto ASSESSMENT AND PLAN: 1. L. hip fracture - s/p orthopedic repair. - c/w PT/OT. - Pain control. Xarelto for DVT ppx. 2. HTN - BP controlled. - Resumed home medications. Norvasc 5mg, HCTZ 25mg, and Enalapril 20 mg daily. 3. DM - resume metformin and glimepiride with ISS coverage. - Monitor BS ACHS. 4. HLD - c/w atorvastatin 20 mg 5. Chronic low back pain - Tylenol, Baclofen PRN. Also on oxycodone. 6. Suspected urinary retention - Patient is voiding, concern for possible high post void volume. - c/w monitor. 7. Constipation - Bowel regimen PRN with prune juice. 8. L. sided rib pain - Rib XR to assess for fracture post fall. - c/w pain control. VS, I&O, 24H, Fishbone Vital Signs/I&O Vital Signs Date Time Temp Pulse Resp B/P (MAP) Pulse Ox O2 Delivery O2 Flow Rate FiO2 04/30/19 09:32 18 Room Air 04/30/19 08:01 128/75 04/30/19 08:01 73 04/30/19 06:00 98.3 99 2.0 I&O- Last 24 Hours up to 6 AM 04/30/19 06:00 Intake Total 510 ml Output Total 1850 ml Balance -1340 ml Laboratory Data 24H LABS Laboratory Tests 2 04/29/19 11:43: Bedside Glucose (Misc Panel) 183H 04/29/19 16:49: Bedside Glucose (Misc Panel) 136H 04/29/19 19:57: Bedside Glucose (Misc Panel) 249H 04/30/19 05:59: Bedside Glucose (Misc Panel) 135H XENIA CHATTERJEE MD Apr 30, 2019 12:00
--- NOTE | 2019-04-30 13:34 | REP ---
Clinical: Trauma. Technique: Four views of the left hemithorax. Findings: Very subtle nondisplaced fracture along the lateral aspect of the left sixth rib cannot be excluded. Impression: Possible nondisplaced left sixth rib fracture. Electronically Signed by Solomon Cruz MD 04/30/2019 01:26 P
[2019-04-30 14:00] VITALS: BP 125/63
[2019-04-30] MEDS: RIVAROXABAN 10 MG TAB (XARELTO) PO SCH (17:29)
[2019-04-30] MEDS: metFORMIN XR 500MG TAB *GLUCOPHAGE XR PO SCH (17:30)
[2019-04-30 20:00] VITALS: BP 118/68
[2019-04-30] MEDS: SENNA 8.6 MG TAB (SENOKOT) PO SCH (21:41)
[2019-04-30] MEDS: QUEtiapine FUMARATE 25 MG TAB PO SCH (21:41)
[2019-04-30] MEDS: raNITIdine SYRUP 150 MG/10 ML UDC PO SCH (21:41)
[2019-04-30] MEDS: **NOTE PATIENT COMMENT** MISC XX SCH (21:41)
[2019-05-01 04:45] VITALS: BP 150/82
[2019-05-01] MEDS: oxyCODONE 5MG TAB PO PRN ×2 (04:50→18:01)
[2019-05-01 06:16] VITALS: BP 140/90
[2019-05-01] MEDS: HumaLOG INSULIN (NovoLOG) PER UNIT SC SCH ×4 (07:30→20:35)
[2019-05-01] MEDS: GLIMEPIRIDE 2 MG TAB PO SCH (07:30)
[2019-05-01] MEDS: IPRATROPIUM 0.5MG/ALBUTEROL 2.5MG INH SOL UD 3ML (DUONEB)(J7620) NEB SCH ×3 (07:58→19:51)
[2019-05-01] MEDS: ASPIRIN 81 MG CHEW TABLET PO SCH (08:55)
[2019-05-01] MEDS: BACLOFEN 5MG PER 1/2 TABLET PO SCH ×3 (08:56→17:05)
[2019-05-01] MEDS: OMEPRAZOLE 20 MG CAP PO SCH (08:58)
[2019-05-01] MEDS: ENALAPRIL MALEATE 10 MG TAB PO SCH (08:58)
[2019-05-01] MEDS: ATORVASTATIN 20 MG TAB PO SCH (08:58)
[2019-05-01] MEDS: hydroCHLOROthiazide 25 MG TAB PO SCH (08:58)
[2019-05-01] MEDS: OMEGA-3 1000MG CAPSULE PO SCH (08:58)
[2019-05-01] MEDS: DOCUSATE SODIUM 100 MG CAP PO SCH ×2 (08:58→20:48)
[2019-05-01] MEDS: ACETAMINOPHEN 500 MG TAB PO SCH ×3 (08:59→20:48)
[2019-05-01] MEDS: VICTOZA SQ SCH (09:00)
[2019-05-01] MEDS: GABAPENTIN 300 MG CAP PO SCH ×3 (09:01→20:48)
[2019-05-01] MEDS: amLODIPine 5 MG TAB PO SCH (09:01)
[2019-05-01] MEDS: LIDOCAINE 5% (LIDODERM) PATCH TD SCH (09:01)
[2019-05-01] MEDS: FLUTICASONE PROP 0.05% NASAL SPRAY 16 GM (FLONASE) NARES SCH ×2 (09:02→20:49)
[2019-05-01] MEDS: ANALGESIC BALM CRM 120 GM TOP SCH ×3 (09:02→20:48)
--- NOTE | 2019-05-01 10:32 | IPNPDOC ---
Date Seen The patient was seen on 05/01/19. Progress Note SUBJECTIVE: Patient is 63F with PMH DM and HTN recently admitted for repair of L. intertrochanteric Hip fracture with orthopedic surgery now transferred to ARU for continue Rehab. Patient continues to complaint of L. rib pain, especially with getting out of bed in the morning. XR yesterday showed likely evidence of small nondisplaced fracture. No other complaints. OBJECTIVE PHYSICAL EXAMINATION: VITAL SIGNS: Please see below. General: No acute distress, Alert Eyes: Normal sclera, EOMI HENT: Atraumatic Cardiovascular: Normal rate, normal rhythm. Pulmonary: Clear to auscultation b/l, no wheezing GI: Soft, nontender, nondistended MSK: L. sided chest/rib pain on palpation. Skin: Warm and dry Neuro: CN grossly intact. No focal deficits. Strengths equal b/l. Psych: oriented x 3 LABORATORY DATA, IMAGING STUDIES, MICROBIOLOGY: Please see below. DVT prophylaxis ordered?: Xarelto ASSESSMENT AND PLAN: 1. L. hip fracture - s/p orthopedic repair. - c/w PT/OT. - Pain control. Xarelto for DVT ppx. 2. HTN - BP controlled. - Resumed home medications. Norvasc 5mg, HCTZ 25mg, and Enalapril 20 mg daily. 3. DM - resume metformin and glimepiride with ISS coverage. - Monitor BS ACHS. 4. HLD - c/w atorvastatin 20 mg 5. Chronic low back pain - Tylenol, Baclofen PRN. Also on oxycodone. 6. Suspected urinary retention - Patient is voiding, concern for possible high post void volume. - c/w monitor. 7. Constipation - Bowel regimen PRN with prune juice. 8. L. sided rib pain - Rib XR to assess for fracture post fall. - c/w pain control. VS, I&O, 24H, Fishbone Vital Signs/I&O Vital Signs Date Time Temp Pulse Resp B/P (MAP) Pulse Ox O2 Delivery O2 Flow Rate FiO2 05/01/19 09:01 86 136/78 05/01/19 05:30 18 Room Air 05/01/19 04:45 98.5 96 2.0 I&O- Last 24 Hours up to 6 AM 05/01/19 06:00 Intake Total 1305 ml Output Total 175 ml Balance 1130 ml Laboratory Data 24H LABS Laboratory Tests 2 04/30/19 11:55: Bedside Glucose (Misc Panel) 122H 04/30/19 16:46: Bedside Glucose (Misc Panel) 91 04/30/19 20:15: Bedside Glucose (Misc Panel) 148H 05/01/19 07:24: Bedside Glucose (Misc Panel) 82 XENIA CHATTERJEE MD May 01, 2019 10:32
[2019-05-01 14:00] VITALS: BP 115/54
[2019-05-01] MEDS: RIVAROXABAN 10 MG TAB (XARELTO) PO SCH (17:05)
[2019-05-01] MEDS: metFORMIN XR 500MG TAB *GLUCOPHAGE XR PO SCH (17:07)
[2019-05-01 19:55] VITALS: BP 140/71
[2019-05-01] MEDS: raNITIdine SYRUP 150 MG/10 ML UDC PO SCH (20:48)
[2019-05-01] MEDS: **NOTE PATIENT COMMENT** MISC XX SCH (20:48)
[2019-05-01] MEDS: SENNA 8.6 MG TAB (SENOKOT) PO SCH (20:48)
[2019-05-01] MEDS: QUEtiapine FUMARATE 25 MG TAB PO SCH (20:50)
[2019-05-02] MEDS: oxyCODONE 5MG TAB PO PRN ×3 (01:08→21:30)
[2019-05-02 05:50] VITALS: BP 158/70
[2019-05-02 06:53] LABS: HEMATOCRIT 29.2 % (36.0-47.0); HEMOGLOBIN 9.4 g/dl (12.0-15.5); MEAN CORPUSCULAR HEMOGLOBIN 28.5 pg (27.0-33.0); MEAN CORPUSCULAR HGB CONC 32.2 g/dl (32.0-36.5); MEAN CORPUSCULAR VOLUME 88.5 fl (80.0-96.0); PLATELET COUNT, AUTOMATED 343 10^3/uL (150-450); WHITE BLOOD COUNT 8.9 10^3/uL (4.0-10.0)
[2019-05-02 07:15] LABS: BLOOD UREA NITROGEN 17 MG/DL (7-18); CALCIUM LEVEL 8.8 MG/DL (8.8-10.2); CARBON DIOXIDE LEVEL 30 MEQ/L (21-32); CHLORIDE LEVEL 98 MEQ/L (98-107); CREATININE FOR GFR 0.87 MG/DL (0.55-1.30); GLOMERULAR FILTRATION RATE > 60.0 (>45); GLUCOSE, FASTING 145 MG/DL (70-100); POTASSIUM SERUM 4.2 MEQ/L (3.5-5.1); SODIUM LEVEL 136 MEQ/L (136-145)
[2019-05-02] MEDS: HumaLOG INSULIN (NovoLOG) PER UNIT SC SCH ×4 (07:22→21:00)
[2019-05-02] MEDS: LIDOCAINE 5% (LIDODERM) PATCH TD SCH (07:23)
[2019-05-02] MEDS: VICTOZA SQ SCH (07:23)
[2019-05-02] MEDS: BACLOFEN 5MG PER 1/2 TABLET PO SCH ×3 (07:24→17:10)
[2019-05-02] MEDS: ASPIRIN 81 MG CHEW TABLET PO SCH (07:24)
[2019-05-02] MEDS: DOCUSATE SODIUM 100 MG CAP PO SCH ×2 (07:24→21:30)
[2019-05-02] MEDS: ATORVASTATIN 20 MG TAB PO SCH (07:24)
[2019-05-02] MEDS: OMEGA-3 1000MG CAPSULE PO SCH (07:25)
[2019-05-02] MEDS: OMEPRAZOLE 20 MG CAP PO SCH (07:25)
[2019-05-02] MEDS: GABAPENTIN 300 MG CAP PO SCH ×3 (07:25→21:30)
[2019-05-02] MEDS: hydroCHLOROthiazide 25 MG TAB PO SCH (07:26)
[2019-05-02] MEDS: GLIMEPIRIDE 2 MG TAB PO SCH (07:26)
[2019-05-02] MEDS: ACETAMINOPHEN 500 MG TAB PO SCH ×3 (07:26→21:30)
[2019-05-02] MEDS: FLUTICASONE PROP 0.05% NASAL SPRAY 16 GM (FLONASE) NARES SCH ×2 (07:29→21:31)
[2019-05-02] MEDS: amLODIPine 5 MG TAB PO SCH (07:29)
[2019-05-02] MEDS: ENALAPRIL MALEATE 10 MG TAB PO SCH (07:29)
[2019-05-02] MEDS: ANALGESIC BALM CRM 120 GM TOP SCH ×3 (07:30→21:31)
[2019-05-02] MEDS: IPRATROPIUM 0.5MG/ALBUTEROL 2.5MG INH SOL UD 3ML (DUONEB)(J7620) NEB SCH ×3 (07:46→19:19)
--- NOTE | 2019-05-02 09:47 | IPNPDOC ---
Date Seen The patient was seen on 05/02/19. Progress Note SUBJECTIVE: Patient is 63F with PMH DM and HTN recently admitted for repair of L. intertr ochanteric Hip fracture with orthopedic surgery now transferred to ARU for continue Rehab. Patient reports starting to feel improvement in her rib pain today. Still has tenderness in her L. leg. OBJECTIVE PHYSICAL EXAMINATION: VITAL SIGNS: Please see below. General: No acute distress, Alert Eyes: Normal sclera, EOMI HENT: Atraumatic Cardiovascular: Normal rate, normal rhythm. Pulmonary: Clear to auscultation b/l, no wheezing GI: Soft, nontender, nondistended MSK: L. sided chest/rib pain on palpation. Skin: Warm and dry Neuro: CN grossly intact. No focal deficits. Strengths equal b/l. Psych: oriented x 3 LABORATORY DATA, IMAGING STUDIES, MICROBIOLOGY: Please see below. DVT prophylaxis ordered?: Xarelto ASSESSMENT AND PLAN: 1. L. hip fracture - s/p orthopedic repair. - c/w PT/OT. - Pain control. Xarelto for DVT ppx. 2. HTN - BP controlled. - Resumed home medications. Norvasc 5mg, HCTZ 25mg, and Enalapril 20 mg daily. 3. DM - resume metformin and glimepiride with ISS coverage. - Monitor BS ACHS. 4. HLD - c/w atorvastatin 20 mg 5. Chronic low back pain - Tylenol, Baclofen PRN. Also on oxycodone. 6. Suspected urinary retention - Patient is voiding, concern for possible high post void volume. - c/w monitor. 7. Constipation - Bowel regimen PRN with prune juice. 8. L. sided rib pain - Rib XR to assess for fracture post fall. - c/w pain control. VS, I&O, 24H, Fishbone Vital Signs/I&O Vital Signs Date Time Temp Pulse Resp B/P (MAP) Pulse Ox O2 Delivery O2 Flow Rate FiO2 05/02/19 07:29 136/82 05/02/19 07:29 68 05/02/19 05:50 98.5 18 97 Room Air 05/01/19 04:45 2.0 I&O- Last 24 Hours up to 6 AM 05/02/19 06:00 Intake Total 1980 ml Output Total 100 ml Balance 1880 ml Laboratory Data 24H LABS Laboratory Tests 2 05/01/19 12:07: Bedside Glucose (Misc Panel) 132H 05/01/19 16:52: Bedside Glucose (Misc Panel) 123H 05/01/19 19:59: Bedside Glucose (Misc Panel) 131H 05/02/19 05:45: Bedside Glucose (Misc Panel) 131H 05/02/19 06:30: Nucleated Red Blood Cells % (auto) 0.0, Anion Gap 8, Glomerular Filtration Rate > 60.0, Calcium Level 8.8 CBC/BMP Laboratory Tests 05/02/19 06:30 XENIA CHATTERJEE MD May 02, 2019 09:47
[2019-05-02 14:00] VITALS: BP 136/70
[2019-05-02] MEDS: metFORMIN XR 500MG TAB *GLUCOPHAGE XR PO SCH (17:10)
[2019-05-02] MEDS: RIVAROXABAN 10 MG TAB (XARELTO) PO SCH (17:11)
[2019-05-02 20:00] VITALS: BP 132/63
[2019-05-02] MEDS: raNITIdine SYRUP 150 MG/10 ML UDC PO SCH (21:29)
[2019-05-02] MEDS: QUEtiapine FUMARATE 25 MG TAB PO SCH (21:30)
[2019-05-02] MEDS: SENNA 8.6 MG TAB (SENOKOT) PO SCH (21:30)
[2019-05-02] MEDS: **NOTE PATIENT COMMENT** MISC XX SCH (21:34)
[2019-05-03] MEDS: oxyCODONE 5MG TAB PO PRN ×5 (04:18→21:17)
[2019-05-03 06:00] VITALS: BP 148/72
[2019-05-03] MEDS: IPRATROPIUM 0.5MG/ALBUTEROL 2.5MG INH SOL UD 3ML (DUONEB)(J7620) NEB SCH ×3 (07:34→20:00)
[2019-05-03] MEDS: VICTOZA SQ SCH (08:07)
[2019-05-03] MEDS: OMEPRAZOLE 20 MG CAP PO SCH (08:07)
[2019-05-03] MEDS: BACLOFEN 5MG PER 1/2 TABLET PO SCH ×3 (08:07→17:30)
[2019-05-03] MEDS: HumaLOG INSULIN (NovoLOG) PER UNIT SC SCH ×4 (08:07→21:00)
[2019-05-03] MEDS: OMEGA-3 1000MG CAPSULE PO SCH (08:07)
[2019-05-03] MEDS: ATORVASTATIN 20 MG TAB PO SCH (08:08)
[2019-05-03] MEDS: GABAPENTIN 300 MG CAP PO SCH ×3 (08:08→21:17)
[2019-05-03] MEDS: ENALAPRIL MALEATE 10 MG TAB PO SCH (08:08)
[2019-05-03] MEDS: DOCUSATE SODIUM 100 MG CAP PO SCH ×2 (08:09→21:17)
[2019-05-03] MEDS: amLODIPine 5 MG TAB PO SCH (08:09)
[2019-05-03] MEDS: ACETAMINOPHEN 500 MG TAB PO SCH ×3 (08:09→21:16)
[2019-05-03] MEDS: GLIMEPIRIDE 2 MG TAB PO SCH (08:09)
[2019-05-03] MEDS: ASPIRIN 81 MG CHEW TABLET PO SCH (08:09)
[2019-05-03] MEDS: hydroCHLOROthiazide 25 MG TAB PO SCH (08:09)
[2019-05-03] MEDS: FLUTICASONE PROP 0.05% NASAL SPRAY 16 GM (FLONASE) NARES SCH ×2 (08:10→21:18)
[2019-05-03] MEDS: LIDOCAINE 5% (LIDODERM) PATCH TD SCH (08:10)
[2019-05-03] MEDS: ANALGESIC BALM CRM 120 GM TOP SCH ×3 (08:10→21:18)
--- NOTE | 2019-05-03 13:18 | IPNPDOC ---
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 She reports many years ago she broke ribs on her left side. Otherwise she is feeling well. REVIEW OF SYSTEMS: The following is a completed review of systems and has been reviewed. Review of systems otherwise unremarkable. PAIN: Patient self reports left hip, ankle, and rib cage pain EYES: No recent vision changes EARS, NOSE, & THROAT: No throat pain, or dysphagia, or rhinorrhea CARDIOVASCULAR: Denies chest pain or palpitations PULMONARY: Denies shortness of breath/cough GASTROINTESTINAL: Denies constipation/diarrhea GENITOURINARY: denies dysuria MUSCULOSKELETAL: left hip fracture NEUROLOGICAL:denies tremor or seizure activity HEMATOLOGICAL: denies easy bruising SKIN: left hip incision PSYCHIATRIC: +Tourette's All other review of systems found to be negative. PHYSICAL EXAMINATION: VITAL SIGNS: Please see below. GENERAL: Pleasant and cooperative. No acute distress. HEENT: PERRL. Extraocular movements intact. Clear conjunctiva CARDIOVASCULAR: Regular rate and rhythm. No murmurs, rubs, or gallops LUNGS: CTA, no wheezes. No rhonchi ABDOMEN: Soft, nontender, nondistended. Positive bowel sounds. Normal active bowel sounds NEUROLOGICAL: Alert and oriented times three. Cranial nerves II through XII grossly intact. Sensation grossly intact including first web space left foot EXTREMITIES: 5\5 strength bilateral upper extremities. 5\5 strength right lower extremity. 5/5 strength left ankle DF/PF/EHL extension (limited due to recent surgery) (+) bilat LE edema (-) Homans bilat Left ankle- pain with varus strain, no instability, Mild TTP Lateral malleoli without swelling Left upper rib cage TTP SKIN: left hip with incisions, no induration, swelling, or erythema ASSESSMENT:63-year-old F with past medical history of HTN who presents status post fall with left hip fracture PLAN: 1. Rehab- PT/OT advance gait training and ADL management, WBAT to the LLE, strengthen/maintain ROM/stretch bilat UE and LE 2. Neuro: no active concerns 3. Cardiac: pmh HTN and HLD c/u BP meds, ASA, and statin therapy -patient reporting she takes HCTZ at home, will start today -morbid obesity, will provide dietary counseling for weight management 4. Resp: no charted hx of COPD/asthma, however patient with hx of seasonal allergies and allergic rhinitis, possible RAD, wheezing improved today -c/u Duonebs and supplemental 02 provided, will attempt to wean -recent CXR with right lower lung nodule, will need pulmonology referral for this and suspected COPD -monitor for respiratory infection -repeat XR on 05-02-19 showed poissble non-discolated left 6th rib fracture, will trial abdominal binder for comfort 5. Endo: pmh DM c/u Victoza (patient's own med), ISS coverage, and c/u metformin 6. GI ppx: ranitidine and omeprazole 7. DVT ppx: TEDs and Xarelto 8. Ortho: s/p left hip ORIF- ortho consulted -left ankle pain, able to bear weight with no notable joint swelling, improving c/u acewrap during therapy 9. Psych: Tourette's c/u seroquel 25mg qHS 10. Pain: Tylenol, baclofen, gabapentin, norco, lidoderm patch to left rib cage and menthol salicylate to left ankle -will trial abdominla brace to asssit with left rib cage fracture 11. Heme: post-op anemia, monitor and transfuse if <8 11. Dispo: TBD Allergies Coded Allergies: Sulfa (Sulfonamide Antibiotics) (Verified Allergy, Unknown, upset stomach, 04/25/19) Vital Signs Vital Signs Date Time Temp Pulse Resp B/P (MAP) Pulse Ox O2 Delivery O2 Flow Rate FiO2 05/03/19 12:12 18 Room Air 05/03/19 08:08 148/72 05/03/19 06:00 97.6 72 100 05/01/19 04:45 2.0 Laboratory Data Labs 24H Laboratory Tests 2 05/02/19 16:47: Bedside Glucose (Misc Panel) 135H 05/02/19 20:10: Bedside Glucose (Misc Panel) 126H 05/03/19 07:28: Bedside Glucose (Misc Panel) 104 05/03/19 11:38: Bedside Glucose (Misc Panel) 80 Current Medications Current Medications Current Medications Medications (Trade) Dose Ordered Sig/Noemi Route PRN Reason Start Time Stop Time Status Last Admin Dose Admin Acetaminophen (Tylenol Tab) 1,000 mg TID PO 04/27/19 21:00 05/03/19 08:09 Albuterol/ Ipratropium (Duoneb (Ipr 0.5mg/Alb 2.5mg)) 3 ml RTID NEB 04/27/19 20:00 05/01/19 19:51 Amlodipine Besylate (Norvasc) 5 mg DAILY PO 04/28/19 09:00 05/03/19 08:09 Aspirin (Aspirin Chewable) 81 mg DAILY PO 04/28/19 09:00 05/03/19 08:09 Atorvastatin Calcium (Lipitor) 20 mg DAILY PO 04/28/19 09:00 05/03/19 08:08 Baclofen (Lioresal) 5 mg DAILY PRN PO SPASMS 04/27/19 18:45 Baclofen (Lioresal) 5 mg TID@0800,1300,1800 PO 04/27/19 18:00 05/03/19 12:12 Dextrose (Dextrose 50%) 25 ml ASDIRECTED PRN IV SEE LABEL COMMENTS 04/27/19 18:45 Docusate Sodium (Colace) 100 mg BID PO 04/27/19 21:00 05/03/19 08:09 Enalapril Maleate (Vasotec) 20 mg DAILY PO 04/28/19 09:00 05/03/19 08:08 Fish Oil ([place]-3 (1000mg)) 1 cap DAILY PO 04/28/19 09:00 05/03/19 08:07 Fluticasone Propionate (Flonase 0.05% Nasal [place]) 1 spray BID NARES 04/27/19 21:00 05/03/19 08:10 Gabapentin (Neurontin) 300 mg TID PO 04/27/19 21:00 05/03/19 08:08 Glimepiride (Amaryl) 4 mg DAILY@0730 PO 04/28/19 07:30 05/03/19 08:09 Glucagon (Glucagon) 1 mg ASDIRECTED PRN SC SEE LABEL COMMENTS 04/27/19 18:45 Glucose (Glucose) 16 GM ASDIRECTED PRN PO SEE LABEL COMMENTS 04/27/19 18:45 Hydrochlorothiazide (Hydrodiuril) 25 mg DAILY PO 04/28/19 09:00 05/03/19 08:09 Insulin Human Lispro (HumaLOG INSULIN) SEE PROTOCOL TABLE AC SC 04/28/19 07:30 05/03/19 08:07 Insulin Human Lispro (HumaLOG INSULIN) SEE PROTOCOL TABLE QHS SC 04/27/19 21:00 04/27/19 20:49 Lidocaine (Lidoderm Patch) 1 patch DAILY TD 04/28/19 09:00 05/03/19 08:10 Magnesium Hydroxide (Milk Of Magnesia) 30 ml DAILYPRN PRN PO CONSTIPATION 04/28/19 09:00 04/29/19 10:20 Menthol/Methyl Salicylate (Bengay Cream) 1 dose TID TOP 04/28/19 09:00 05/03/19 08:10 Metformin HCl (Glucophage Xr) 2,000 mg DAILY@18 PO 04/27/19 18:00 05/02/19 17:10 Miscellaneous (Unresolved Patient Own Med Order) SEE LABEL COMMENTS DAILY XX 04/27/19 09:00 04/27/19 19:57 DC Non-Formulary Medication ( See Comment Field Below ) REMOVE LIDODERM PATCH DAILY@21 XX 04/28/19 21:00 05/02/19 21:34 Omeprazole (PriLOSEC) 40 mg DAILY PO 04/28/19 09:00 05/03/19 08:07 Ondansetron HCl (Zofran Odt) 4 mg Q6HP PRN PO NAUSEA OR VOMITING 04/29/19 11:30 Oxycodone HCl (Roxicodone, Oxyir) 5 mg Q4HP PRN PO PAIN 04/27/19 18:45 05/03/19 12:12 Patient Own Medication (Patient'S Own Med) victoza INJECTION(18mg/ 3mL) INJECT 1.... DAILY SQ 04/28/19 09:00 05/03/19 08:07 Quetiapine Fumarate (SEROquel) 25 mg QHS PO 04/27/19 21:00 05/02/19 21:30 Ranitidine HCl (ZANTAC Syrup) 150 mg QHS PO 04/27/19 21:00 05/02/19 21:29 Rivaroxaban (Xarelto) 10 mg DAILY@1800 PO 04/27/19 18:00 05/02/19 17:11 Senna (Senokot) 1 tab QHS PO 04/27/19 21:00 12/1/19 21:30 JUAN J RODRIGUEZ MD May 03, 2019 13:18
[2019-05-03 14:00] VITALS: BP 90/62
[2019-05-03 16:38] VITALS: BP 122/61
[2019-05-03] MEDS: RIVAROXABAN 10 MG TAB (XARELTO) PO SCH (17:30)
[2019-05-03] MEDS: metFORMIN XR 500MG TAB *GLUCOPHAGE XR PO SCH (17:30)
--- NOTE | 2019-05-03 19:13 | IPNPDOC ---
Date Seen The patient was seen on 05/03/19. Progress Note SUBJECTIVE: Patient is 63F with PMH DM and HTN recently admitted for repair of L. intertrochanteric Hip fracture with orthopedic surgery now transferred to ARU for continue Rehab. Patient reports still having significant rib pain but relieves with pain medications. No acute events reported overnight. OBJECTIVE PHYSICAL EXAMINATION: VITAL SIGNS: Please see below. General: No acute distress, Alert Eyes: Normal sclera, EOMI HENT: Atraumatic Cardiovascular: Normal rate, normal rhythm. Pulmonary: Clear to auscultation b/l, no wheezing GI: Soft, nontender, nondistended MSK: L. sided chest/rib pain on palpation. Skin: Warm and dry Neuro: CN grossly intact. No focal deficits. Strengths equal b/l. Psych: oriented x 3 LABORATORY DATA, IMAGING STUDIES, MICROBIOLOGY: Please see below. DVT prophylaxis ordered?: Xarelto ASSESSMENT AND PLAN: 1. L. hip fracture - s/p orthopedic repair. - c/w PT/OT. - Pain control. Xarelto for DVT ppx. 2. HTN - BP controlled. - Resumed home medications. Norvasc 5mg, HCTZ 25mg, and Enalapril 20 mg daily. 3. DM - resume metformin and glimepiride with ISS coverage. - Monitor BS ACHS. 4. HLD - c/w atorvastatin 20 mg 5. Chronic low back pain - Tylenol, Baclofen PRN. Also on oxycodone. - c/w monitor. 6. Constipation - Bowel regimen PRN 7. L. sided rib pain - Rib XR to assess for fracture post fall. - c/w pain control. VS, [facility]O, [facility]/I&O Vital Signs Date Time Temp Pulse Resp B/P (MAP) Pulse Ox O2 Delivery O2 Flow Rate FiO2 05/03/19 16:48 18 Room Air 05/03/19 16:38 122/61 (81) 05/03/19 14:00 97.9 86 100 05/01/19 04:45 2.0 I&O- Last 24 Hours up to 6 AM 05/03/19 06:00 Intake Total 860 ml Output Total 1900 ml Balance -1040 ml Laboratory Data 24H LABS Laboratory Tests 2 05/02/19 20:10: Bedside Glucose (Misc Panel) 126H 05/03/19 07:28: Bedside Glucose (Misc Panel) 104 05/03/19 11:38: Bedside Glucose (Misc Panel) 80 05/03/19 16:26: Bedside Glucose (Misc Panel) 155H XENIA CHATTERJEE MD May 03, 2019 19:13
--- NOTE | 2019-05-03 19:20 | IPNPDOC ---
Date Seen The patient was seen on 05/03/19. Progress Note SUBJECTIVE: Patient's mental status appear to improved today. Still waxes and wanes but much less severe than yesterday. Had agreed to obtaining a lumbar puncture today as well as MRI, both were completed. BP still labile with cardene drip as needed. OBJECTIVE PHYSICAL EXAMINATION: General: alert, slightly anxious Eyes: Normal sclera, EOMI, EKTA, no photophobia HENT: Atraumatic, neck supple Cardiovascular: normal rate, normal rhythm. Pulmonary: Clear to auscultation b/l GI: Soft, nontender, nondistended Skin: Warm and dry Neuro: CN grossly intact. No focal deficits. Strengths equal b/l. Psych: fluctuates AAOx 2 and 3 IMAGING: CT head- Impression: Age related atrophy and microvascular ischemic changes. No acute intracranial hemorrhage, infarction, or mass/mass effect. CT Angio- Impression: No evidence for pulmonary embolus. No acute mediastinal or pleural parenchymal process. CT Abdomen/pelvis- Impression: 1. No acute abdominopelvic pathology appreciated. MICROBIOLOGY: Please see below. ASSESSMENT AND PLAN: 1. AMS - Hypertensive encephalopathy vs. [employer] infection. - BP elevated likely for a period of time. Treat as hypertensive emergency with gradual lowering of BP. - Has been on cardene drip with goal of <180/100 for about 24 hours now. Can reintroduce oral meds to further lower BP. - Neurology consulted, recommendations appreciated. MRI with no acute changes. - Patient adamantly refused LP, cried for hours, consent obtained from aunt Khurram Lopez [phone]. - Low suspicion bacterial meningitis given no meningeal signs. No nuchal rigidity, photophobia, fevers, leukocytosis. Possible viral. - c/w ABx. 2. HTN Emergency with encephalopathy - Started on cardene drip in ICU, will start reintroducing PO meds tonight. - No evidence of PRESS on CT. 3. CAD - Resume home medications. - Denies chest pain at this time. Negative troponin. 4. L. foot wound - Consult wound care. DVT ppx: HSQ Code Status: Full code VS, I&O, 24H, Fishbone Vital Signs/I&O Vital Signs Date Time Temp Pulse Resp B/P (MAP) Pulse Ox O2 Delivery O2 Flow Rate FiO2 05/03/19 16:48 18 Room Air 12/2/19 16:38 122/61 (81) 05/03/19 14:00 97.9 86 100 05/01/19 04:45 2.0 I&O- Last 24 Hours up to 6 AM 05/03/19 06:00 Intake Total 860 ml Output Total 1900 ml Balance -1040 ml Laboratory Data 24H LABS Laboratory Tests 2 05/02/19 20:10: Bedside Glucose (Misc Panel) 126H 05/03/19 07:28: Bedside Glucose (Misc Panel) 104 05/03/19 11:38: Bedside Glucose (Misc Panel) 80 05/03/19 16:26: Bedside Glucose (Misc Panel) 155H XENIA CHATTERJEE MD May 03, 2019 19:20
[2019-05-03 20:15] VITALS: BP 143/70
[2019-05-03] MEDS: raNITIdine SYRUP 150 MG/10 ML UDC PO SCH (21:15)
[2019-05-03] MEDS: QUEtiapine FUMARATE 25 MG TAB PO SCH (21:16)
[2019-05-03] MEDS: SENNA 8.6 MG TAB (SENOKOT) PO SCH (21:17)
[2019-05-03] MEDS: **NOTE PATIENT COMMENT** MISC XX SCH (21:18)
[2019-05-04] MEDS: oxyCODONE 5MG TAB PO PRN ×5 (01:11→21:50)
[2019-05-04 06:00] VITALS: BP_SYST 136; BP_SYST 141; BP_DIAS 68; BP_DIAS 73
[2019-05-04] MEDS: IPRATROPIUM 0.5MG/ALBUTEROL 2.5MG INH SOL UD 3ML (DUONEB)(J7620) NEB SCH ×3 (07:33→19:45)
[2019-05-04] MEDS: VICTOZA SQ SCH (08:01)
[2019-05-04] MEDS: ATORVASTATIN 20 MG TAB PO SCH (08:02)
[2019-05-04] MEDS: ENALAPRIL MALEATE 10 MG TAB PO SCH (08:02)
[2019-05-04] MEDS: OMEGA-3 1000MG CAPSULE PO SCH (08:02)
[2019-05-04] MEDS: HumaLOG INSULIN (NovoLOG) PER UNIT SC SCH ×4 (08:02→21:00)
[2019-05-04] MEDS: hydroCHLOROthiazide 25 MG TAB PO SCH (08:02)
[2019-05-04] MEDS: amLODIPine 5 MG TAB PO SCH (08:03)
[2019-05-04] MEDS: ASPIRIN 81 MG CHEW TABLET PO SCH (08:03)
[2019-05-04] MEDS: GABAPENTIN 300 MG CAP PO SCH ×3 (08:03→21:50)
[2019-05-04] MEDS: BACLOFEN 5MG PER 1/2 TABLET PO SCH ×3 (08:03→17:23)
[2019-05-04] MEDS: ACETAMINOPHEN 500 MG TAB PO SCH ×3 (08:03→21:50)
[2019-05-04] MEDS: OMEPRAZOLE 20 MG CAP PO SCH (08:04)
[2019-05-04] MEDS: DOCUSATE SODIUM 100 MG CAP PO SCH ×2 (08:04→21:50)
[2019-05-04] MEDS: GLIMEPIRIDE 2 MG TAB PO SCH (08:04)
[2019-05-04] MEDS: LIDOCAINE 5% (LIDODERM) PATCH TD SCH (08:04)
[2019-05-04] MEDS: ANALGESIC BALM CRM 120 GM TOP SCH ×3 (08:05→21:51)
[2019-05-04] MEDS: FLUTICASONE PROP 0.05% NASAL SPRAY 16 GM (FLONASE) NARES SCH ×2 (08:05→21:51)
--- NOTE | 2019-05-04 12:30 | IPNPDOC ---
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 She reports being up often overnight to urinate. REVIEW OF SYSTEMS: The following is a completed review of systems and has been reviewed. Review of systems otherwise unremarkable. PAIN: Patient self reports left hip, ankle, and rib cage pain EYES: No recent vision changes EARS, NOSE, & THROAT: No throat pain, or dysphagia, or rhinorrhea CARDIOVASCULAR: Denies chest pain or palpitations PULMONARY: Denies shortness of breath/cough GASTROINTESTINAL: Denies constipation/diarrhea GENITOURINARY: denies dysuria, + increased frequency MUSCULOSKELETAL: left hip fracture NEUROLOGICAL:denies tremor or seizure activity HEMATOLOGICAL: denies easy bruising SKIN: left hip incision PSYCHIATRIC: +Tourette's All other review of systems found to be negative. PHYSICAL EXAMINATION: VITAL SIGNS: Please see below. GENERAL: Pleasant and cooperative. No acute distress. HEENT: PERRL. Extraocular movements intact. Clear conjunctiva CARDIOVASCULAR: Regular rate and rhythm. No murmurs, rubs, or gallops LUNGS: CTA, no wheezes. No rhonchi ABDOMEN: Soft, nontender, nondistended. Positive bowel sounds. Normal active bowel sounds NEUROLOGICAL: Alert and oriented times three. Cranial nerves II through XII grossly intact. Sensation grossly intact including first web space left foot EXTREMITIES: 5\5 strength bilateral upper extremities. 5\5 strength right lower extremity. 5/5 strength left ankle DF/PF/EHL extension (limited due to recent surgery) (+) bilat LE edema (-) Homans bilat Left ankle- pain with varus strain, no instability, Mild TTP Lateral malleoli without swelling Left upper rib cage TTP SKIN: left hip with incisions, no induration, swelling, or erythema ASSESSMENT:63-year-old F with past medical history of HTN who presents status post fall with left hip fracture PLAN: 1. Rehab- PT/OT advance gait training and ADL management, WBAT to the LLE, strengthen/maintain ROM/stretch bilat UE and LE 2. Neuro: no active concerns 3. Cardiac: pmh HTN and HLD c/u BP meds, ASA, and statin therapy -patient reporting she takes HCTZ at home, will start today -morbid obesity, will provide dietary counseling for weight management 4. Resp: no charted hx of COPD/asthma, however patient with hx of seasonal allergies and allergic rhinitis, possible RAD, wheezing improved today -c/u Duonebs and supplemental 02 provided, will attempt to wean -recent CXR with right lower lung nodule, will need pulmonology referral for this and suspected COPD -monitor for respiratory infection -repeat XR on 05-02-19 showed possible non-dislocated left 6th rib fracture, c/u abdominal binder for comfort 5. Endo: pmh DM c/u Victoza (patient's own med), ISS coverage, and c/u metformin 6. GI ppx: ranitidine and omeprazole 7. DVT ppx: TEDs and Xarelto 8. Ortho: s/p left hip ORIF- ortho consulted -left ankle pain, able to bear weight with no notable joint swelling, improving c/u acewrap during therapy 9. Psych: Tourette's c/u seroquel 25mg qHS 10. Pain: Tylenol, baclofen, gabapentin, norco, lidoderm patch to left rib cage and menthol salicylate to left ankle -c/ul abdominal brace to assist with left rib cage fracture 11. Heme: post-op anemia, monitor and transfuse if <8 12. : increased frequency overnight, will check UA 11. Dispo: TBD Allergies Coded Allergies: Sulfa (Sulfonamide Antibiotics) (Verified Allergy, Unknown, upset stomach, 04/25/19) Vital Signs Vital Signs Date Time Temp Pulse Resp B/P (MAP) Pulse Ox O2 Delivery O2 Flow Rate FiO2 05/04/19 12:02 18 Room Air 05/04/19 08:02 141/68 05/04/19 06:00 97.9 76 94 05/01/19 04:45 2.0 Laboratory Data Labs 24H Laboratory Tests 2 05/03/19 16:26: Bedside Glucose (Misc Panel) 155H 05/03/19 20:33: Bedside Glucose (Misc Panel) 147H 05/04/19 05:55: Bedside Glucose (Misc Panel) 121H 05/04/19 11:49: Bedside Glucose (Misc Panel) 116H Current Medications Current Medications Current Medications Medications (Trade) Dose Ordered Sig/Noemi Route PRN Reason Start Time Stop Time Status Last Admin Dose Admin Acetaminophen (Tylenol Tab) 1,000 mg TID PO 04/27/19 21:00 05/04/19 08:03 Albuterol/ Ipratropium (Duoneb (Ipr 0.5mg/Alb 2.5mg)) 3 ml RTID NEB 04/27/19 20:00 05/01/19 19:51 Amlodipine Besylate (Norvasc) 5 mg DAILY PO 04/28/19 09:00 05/04/19 08:03 Aspirin (Aspirin Chewable) 81 mg DAILY PO 04/28/19 09:00 05/04/19 08:03 Atorvastatin Calcium (Lipitor) 20 mg DAILY PO 04/28/19 09:00 05/04/19 08:02 Baclofen (Lioresal) 5 mg DAILY PRN PO SPASMS 04/27/19 18:45 Baclofen (Lioresal) 5 mg TID@0800,1300,1800 PO 04/27/19 18:00 05/04/19 12:02 Dextrose (Dextrose 50%) 25 ml ASDIRECTED PRN IV SEE LABEL COMMENTS 04/27/19 18:45 Docusate Sodium (Colace) 100 mg BID PO 04/27/19 21:00 05/04/19 08:04 Enalapril Maleate (Vasotec) 20 mg DAILY PO 04/28/19 09:00 05/04/19 08:02 Fish Oil ([place]-3 (1000mg)) 1 cap DAILY PO 04/28/19 09:00 05/04/19 08:02 Fluticasone Propionate (Flonase 0.05% Nasal [place]) 1 spray BID NARES 04/27/19 21:00 05/04/19 08:05 Gabapentin (Neurontin) 300 mg TID PO 04/27/19 21:00 05/04/19 08:03 Glimepiride (Amaryl) 4 mg DAILY@0730 PO 04/28/19 07:30 05/04/19 08:04 Glucagon (Glucagon) 1 mg ASDIRECTED PRN SC SEE LABEL COMMENTS 04/27/19 18:45 Glucose (Glucose) 16 GM ASDIRECTED PRN PO SEE LABEL COMMENTS 04/27/19 18:45 Hydrochlorothiazide (Hydrodiuril) 25 mg DAILY PO 04/28/19 09:00 05/04/19 08:02 Insulin Human Lispro (HumaLOG INSULIN) SEE PROTOCOL TABLE AC SC 04/28/19 07:30 05/04/19 12:01 Insulin Human Lispro (HumaLOG INSULIN) SEE PROTOCOL TABLE QHS SC 04/27/19 21:00 04/27/19 20:49 Lidocaine (Lidoderm Patch) 1 patch DAILY TD 04/28/19 09:00 05/04/19 08:04 Magnesium Hydroxide (Milk Of Magnesia) 30 ml DAILYPRN PRN PO CONSTIPATION 04/28/19 09:00 04/29/19 10:20 Menthol/Methyl Salicylate (Bengay Cream) 1 dose TID TOP 04/28/19 09:00 05/04/19 08:05 Metformin HCl (Glucophage Xr) 2,000 mg DAILY@18 PO 04/27/19 18:00 05/03/19 17:30 Miscellaneous (Unresolved Clarification Entry) SEE LABEL COMMENTS DAILY XX 05/03/19 09:00 05/04/19 07:07 DC Miscellaneous (Unresolved Clarification Entry) SEE LABEL COMMENTS DAILY XX 05/04/19 09:00 Miscellaneous (Unresolved Patient Own Med Order) SEE LABEL COMMENTS DAILY XX 04/27/19 09:00 04/27/19 19:57 DC Non-Formulary Medication ( See Comment Field Below ) REMOVE LIDODERM PATCH DAILY@21 XX 04/28/19 21:00 05/03/19 21:18 Omeprazole (PriLOSEC) 40 mg DAILY PO 04/28/19 09:00 05/04/19 08:04 Ondansetron HCl (Zofran Odt) 4 mg Q6HP PRN PO NAUSEA OR VOMITING 04/29/19 11:30 Oxycodone HCl (Roxicodone, Oxyir) 5 mg Q4HP PRN PO PAIN 04/27/19 18:45 05/04/19 12:02 Patient Own Medication (Patient'S Own Med) victoza INJECTION(18mg/ 3mL) INJECT 1.... DAILY SQ 04/28/19 09:00 05/04/19 08:01 Quetiapine Fumarate (SEROquel) 25 mg QHS PO 04/27/19 21:00 05/03/19 21:16 Ranitidine HCl (ZANTAC Syrup) 150 mg QHS PO 04/27/19 21:00 05/03/19 21:15 Rivaroxaban (Xarelto) 10 mg DAILY@1800 PO 04/27/19 18:00 05/03/19 17:30 Senna (Senokot) 1 tab QHS PO 04/27/19 21:00 05/03/19 21:17 JUAN J RODRIGUEZ MD May 04, 2019 12:30
[2019-05-04 15:42] VITALS: BP 146/67
[2019-05-04] MEDS: RIVAROXABAN 10 MG TAB (XARELTO) PO SCH (17:22)
[2019-05-04] MEDS: metFORMIN XR 500MG TAB *GLUCOPHAGE XR PO SCH (17:22)
[2019-05-04 20:00] VITALS: BP 127/72
[2019-05-04] MEDS: raNITIdine SYRUP 150 MG/10 ML UDC PO SCH (21:49)
[2019-05-04] MEDS: QUEtiapine FUMARATE 25 MG TAB PO SCH (21:50)
[2019-05-04] MEDS: SENNA 8.6 MG TAB (SENOKOT) PO SCH (21:50)
[2019-05-04] MEDS: **NOTE PATIENT COMMENT** MISC XX SCH (21:51)
[2019-05-05] MEDS: oxyCODONE 5MG TAB PO PRN ×2 (04:50→12:01)
[2019-05-05 06:00] VITALS: BP 151/76
[2019-05-05 06:47] VITALS: BP 135/65
[2019-05-05] MEDS: GLIMEPIRIDE 2 MG TAB PO SCH (07:30)
[2019-05-05] MEDS: HumaLOG INSULIN (NovoLOG) PER UNIT SC SCH ×4 (07:30→20:24)
[2019-05-05] MEDS: IPRATROPIUM 0.5MG/ALBUTEROL 2.5MG INH SOL UD 3ML (DUONEB)(J7620) NEB SCH ×3 (07:31→20:00)
[2019-05-05 07:39] LABS: BASO % 0.3 % (0.0-1.0); EOS # 0.2 10^3/uL (0.0-0.5); EOS % 1.9 % (0.0-3.0); HEMATOCRIT 30.7 % (36.0-47.0); HEMOGLOBIN 9.5 g/dl (12.0-15.5); LYMPH # 1.8 10^3/uL (1.5-5.0); LYMPH % 17.7 % (24.0-44.0); MEAN CORPUSCULAR HEMOGLOBIN 27.9 pg (27.0-33.0); MEAN CORPUSCULAR HGB CONC 30.9 g/dl (32.0-36.5); MONO # 0.8 10^3/uL (0.0-0.8); NEUTROPHILS # 7.2 10^3/uL (1.5-8.5); NEUTROPHILS % 71.1 % (36.0-66.0); PLATELET COUNT, AUTOMATED 403 10^3/uL (150-450); RED BLOOD COUNT 3.41 10^6/uL (4.00-5.40); WHITE BLOOD COUNT 10.2 10^3/uL (4.0-10.0)
[2019-05-05 08:06] LABS: BLOOD UREA NITROGEN 20 MG/DL (7-18); CALCIUM LEVEL 8.7 MG/DL (8.8-10.2); CARBON DIOXIDE LEVEL 32 MEQ/L (21-32); CHLORIDE LEVEL 99 MEQ/L (98-107); CREATININE FOR GFR 0.83 MG/DL (0.55-1.30); GLOMERULAR FILTRATION RATE > 60.0 (>45); GLUCOSE, FASTING 96 MG/DL (70-100); POTASSIUM SERUM 4.1 MEQ/L (3.5-5.1); SODIUM LEVEL 136 MEQ/L (136-145)
[2019-05-05] MEDS: VICTOZA SQ SCH (08:10)
[2019-05-05] MEDS: ATORVASTATIN 20 MG TAB PO SCH (08:18)
[2019-05-05] MEDS: GABAPENTIN 300 MG CAP PO SCH ×2 (08:18→17:29)
[2019-05-05] MEDS: OMEGA-3 1000MG CAPSULE PO SCH (08:18)
[2019-05-05] MEDS: ENALAPRIL MALEATE 10 MG TAB PO SCH (08:18)
[2019-05-05] MEDS: BACLOFEN 5MG PER 1/2 TABLET PO SCH ×3 (08:18→17:29)
[2019-05-05] MEDS: hydroCHLOROthiazide 25 MG TAB PO SCH (08:19)
[2019-05-05] MEDS: DOCUSATE SODIUM 100 MG CAP PO SCH ×2 (08:19→20:36)
[2019-05-05] MEDS: ASPIRIN 81 MG CHEW TABLET PO SCH (08:19)
[2019-05-05] MEDS: OMEPRAZOLE 20 MG CAP PO SCH (08:19)
[2019-05-05] MEDS: amLODIPine 5 MG TAB PO SCH (08:19)
[2019-05-05] MEDS: FLUTICASONE PROP 0.05% NASAL SPRAY 16 GM (FLONASE) NARES SCH ×2 (08:20→20:34)
[2019-05-05] MEDS: ACETAMINOPHEN 500 MG TAB PO SCH ×3 (08:20→20:36)
[2019-05-05] MEDS: LIDOCAINE 5% (LIDODERM) PATCH TD SCH (08:20)
[2019-05-05] MEDS: ANALGESIC BALM CRM 120 GM TOP SCH ×3 (08:21→20:36)
[2019-05-05 14:00] VITALS: BP 108/56
[2019-05-05] MEDS: metFORMIN XR 500MG TAB *GLUCOPHAGE XR PO SCH (17:29)
[2019-05-05] MEDS: RIVAROXABAN 10 MG TAB (XARELTO) PO SCH (17:29)
--- NOTE | 2019-05-05 19:40 | IPNPDOC ---
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 REVIEW OF SYSTEMS: The following is a completed review of systems and has been reviewed. Review of systems otherwise unremarkable. PAIN: Patient self reports left hip, ankle, and rib cage pain EYES: No recent vision changes EARS, NOSE, & THROAT: No throat pain, or dysphagia, or rhinorrhea CARDIOVASCULAR: Denies chest pain or palpitations PULMONARY: Denies shortness of breath/cough GASTROINTESTINAL: Denies constipation/diarrhea GENITOURINARY: denies dysuria, + increased frequency MUSCULOSKELETAL: left hip fracture NEUROLOGICAL:denies tremor or seizure activity HEMATOLOGICAL: denies easy bruising SKIN: left hip incision PSYCHIATRIC: +Tourette's All other review of systems found to be negative. PHYSICAL EXAMINATION: VITAL SIGNS: Please see below. GENERAL: Pleasant and cooperative. No acute distress. HEENT: PERRL. Extraocular movements intact. Clear conjunctiva CARDIOVASCULAR: Regular rate and rhythm. No murmurs, rubs, or gallops LUNGS: CTA, no wheezes. No rhonchi ABDOMEN: Soft, nontender, nondistended. Positive bowel sounds. Normal active b owel sounds NEUROLOGICAL: Alert and oriented times three. Cranial nerves II through XII grossly intact. Sensation grossly intact including first web space left foot EXTREMITIES: 5\5 strength bilateral upper extremities. 5\5 strength right lower extremity. 5/5 strength left ankle DF/PF/EHL extension (limited due to recent surgery) (+) bilat LE edema (-) Homans bilat Left ankle- pain with varus strain, no instability, Mild TTP Lateral malleoli without swelling Left upper rib cage TTP SKIN: left hip with incisions, no induration, swelling, or erythema ASSESSMENT:63-year-old F with past medical history of HTN who presents status post fall with left hip fracture PLAN: 1. Rehab- PT/OT advance gait training and ADL management, WBAT to the LLE, strengthen/maintain ROM/stretch bilat UE and LE 2. Neuro: no active concerns 3. Cardiac: pmh HTN and HLD c/u BP meds, ASA, and statin therapy -c/u HCTZ -morbid obesity, will provide dietary counseling for weight management 4. Resp: no charted hx of COPD/asthma, however patient with hx of seasonal allergies and allergic rhinitis, possible RAD, wheezing improved today -c/u Duonebs and supplemental 02 provided, will attempt to wean -recent CXR with right lower lung nodule, will need pulmonology referral for this and suspected COPD -monitor for respiratory infection -repeat XR on 05-02-19 showed possible non-dislocated left 6th rib fracture, c/u abdominal binder for comfort 5. Endo: pmh DM c/u Victoza (patient's own med), ISS coverage, and c/u metformin 6. GI ppx: ranitidine and omeprazole 7. DVT ppx: TEDs and Xarelto 8. Ortho: s/p left hip ORIF- ortho consulted -left ankle pain, able to bear weight with no notable joint swelling, improving c/u acewrap during therapy 9. Psych: Tourette's c/u seroquel 25mg qHS 10. Pain: Tylenol, baclofen, will increase gabapentin to 400mg TID, norco, lidoderm patch to left rib cage and menthol salicylate to left ankle -c/ul abdominal brace to assist with left rib cage fracture 11. Heme: post-op anemia, monitor and transfuse if <8 12. : increased frequency overnight,UA +nitrites, will give one time dose Fosfomycin. awaiting ucx 11. Dispo: 05-11-19 to home, progressing towards goals Allergies Coded Allergies: Sulfa (Sulfonamide Antibiotics) (Verified Allergy, Unknown, upset stomach, 04/25/19) Vital Signs Vital Signs Date Time Temp Pulse Resp B/P (MAP) Pulse Ox O2 Delivery O2 Flow Rate FiO2 05/05/19 14:00 97.6 84 18 108/56 (73) 97 05/05/19 06:00 Room Air 05/01/19 04:45 2.0 Laboratory Data CBC/BMP Laboratory Tests 05/05/19 06:55 Labs 24H Laboratory Tests 2 05/05/19 02:34: Urine Color YELLOW, Urine Appearance HAZY, Urine pH 5.0, Urine Specific [place] 1.014, Urine Protein NEGATIVE, Urine Glucose (UA) NEGATIVE, Urine Ketones NEGATIVE, Urine Blood NEGATIVE, Urine Nitrite POSITIVEH, Urine Bilirubin NEGATIVE, Urine Urobilinogen 0.2, Urine Leukocyte Esterase 2+H, Urine WBC (Auto) 21H, Urine RBC (Auto) 3, Urine Hyaline Casts (Auto) 0, Urine Bacteria (Auto) 1+H, Urine Squamous Epithelial Cells 1, Urine Mucus (Auto) SMALL, Urine Sperm (Auto) 05/05/19 06:55: Immature Granulocyte % (Auto) 1.0, Neutrophils (%) (Auto) 71.1H, Lymphocytes (%) (Auto) 17.7L, Monocytes (%) (Auto) 8.0H, Eosinophils (%) (Auto) 1.9, Basophils (%) (Auto) 0.3, Neutrophils # (Auto) 7.2, Lymphocytes # (Auto) 1.8, Monocytes # (Auto) 0.8, Eosinophils # (Auto) 0.2, Basophils # (Auto) 0.0, Nucleated Red Blood Cells % (auto) 0.0, Anion Gap 5L, Glomerular Filtration Rate > 60.0, Calcium Level 8.7L 05/05/19 11:35: Bedside Glucose (Misc Panel) 97 05/05/19 16:58: Bedside Glucose (Misc Panel) 146H Microbiology Microbiology 05/05/19 Urine Culture, Received Pending Current Medications Current Medications Current Medications Medications (Trade) Dose Ordered Sig/Noemi Route PRN Reason Start Time Stop Time Status Last Admin Dose Admin Acetaminophen (Tylenol Tab) 1,000 mg TID PO 04/27/19 21:00 05/05/19 17:28 Albuterol/ Ipratropium (Duoneb (Ipr 0.5mg/Alb 2.5mg)) 3 ml RTID NEB 04/27/19 20:00 05/04/19 19:45 Amlodipine Besylate (Norvasc) 5 mg DAILY PO 04/28/19 09:00 05/05/19 08:19 Aspirin (Aspirin Chewable) 81 mg DAILY PO 04/28/19 09:00 05/05/19 08:19 Atorvastatin Calcium (Lipitor) 20 mg DAILY PO 04/28/19 09:00 05/05/19 08:18 Baclofen (Lioresal) 5 mg DAILY PRN PO SPASMS 04/27/19 18:45 Baclofen (Lioresal) 5 mg TID@0800,1300,1800 PO 04/27/19 18:00 05/05/19 17:29 Dextrose (Dextrose 50%) 25 ml ASDIRECTED PRN IV SEE LABEL COMMENTS 04/27/19 18:45 Docusate Sodium (Colace) 100 mg BID PO 04/27/19 21:00 05/05/19 08:19 Enalapril Maleate (Vasotec) 20 mg DAILY PO 04/28/19 09:00 05/05/19 08:18 Fish Oil ([place]-3 (1000mg)) 1 cap DAILY PO 04/28/19 09:00 05/05/19 08:18 Fluticasone Propionate (Flonase 0.05% Nasal [place]) 1 spray BID NARES 04/27/19 21:00 05/05/19 08:20 Gabapentin (Neurontin) 300 mg TID PO 04/27/19 21:00 05/05/19 18:14 DC 05/05/19 17:29 Gabapentin (Neurontin) 400 mg TID PO 05/05/19 21:00 Glimepiride (Amaryl) 4 mg DAILY@0730 PO 04/28/19 07:30 05/04/19 08:04 Glucagon (Glucagon) 1 mg ASDIRECTED PRN SC SEE LABEL COMMENTS 04/27/19 18:45 Glucose (Glucose) 16 GM ASDIRECTED PRN PO SEE LABEL COMMENTS 04/27/19 18:45 Hydrochlorothiazide (Hydrodiuril) 25 mg DAILY PO 04/28/19 09:00 05/05/19 08:19 Insulin Human Lispro (HumaLOG INSULIN) SEE PROTOCOL TABLE AC SC 04/28/19 07:30 05/05/19 17:30 Insulin Human Lispro (HumaLOG INSULIN) SEE PROTOCOL TABLE QHS SC 04/27/19 21:00 04/27/19 20:49 Lactobacillus Acidophilus (Bacid) 1 ea TID PO 05/05/19 21:00 Lidocaine (Lidoderm Patch) 1 patch DAILY TD 04/28/19 09:00 05/05/19 08:20 Magnesium Hydroxide (Milk Of Magnesia) 30 ml DAILYPRN PRN PO CONSTIPATION 04/28/19 09:00 04/29/19 10:20 Menthol/Methyl Salicylate (Bengay Cream) 1 dose TID TOP 04/28/19 09:00 05/05/19 17:30 Metformin HCl (Glucophage Xr) 2,000 mg DAILY@18 PO 04/27/19 18:00 05/05/19 17:29 Miscellaneous (Unresolved Clarification Entry) SEE LABEL COMMENTS DAILY XX 05/03/19 09:00 05/04/19 07:07 DC Miscellaneous (Unresolved Clarification Entry) SEE LABEL COMMENTS DAILY XX 05/04/19 09:00 05/04/19 14:48 DC Miscellaneous (Unresolved Patient Own Med Order) SEE LABEL COMMENTS DAILY XX 04/27/19 09:00 04/27/19 19:57 DC Non-Formulary Medication ( See Comment Field Below ) REMOVE LIDODERM PATCH DAILY@21 XX 04/28/19 21:00 05/04/19 21:51 Omeprazole (PriLOSEC) 40 mg DAILY PO 04/28/19 09:00 05/05/19 08:19 Ondansetron HCl (Zofran Odt) 4 mg Q6HP PRN PO NAUSEA OR VOMITING 04/29/19 11:30 Oxycodone HCl (Roxicodone, Oxyir) 5 mg Q4HP PRN PO PAIN 04/27/19 18:45 05/05/19 12:01 Patient Own Medication (Patient'S Own Med) victoza INJECTION(18mg/ 3mL) INJECT 1.... DAILY SQ 04/28/19 09:00 05/04/19 08:01 Quetiapine Fumarate (SEROquel) 25 mg QHS PO 04/27/19 21:00 05/04/19 21:50 Ranitidine HCl (ZANTAC Syrup) 150 mg QHS PO 04/27/19 21:00 05/04/19 21:49 Rivaroxaban (Xarelto) 10 mg DAILY@1800 PO 04/27/19 18:00 05/05/19 17:29 Senna (Senokot) 1 tab QHS PO 04/27/19 21:00 05/04/19 21:50 JUAN J RODRIGUEZ MD May 05, 2019 19:40
[2019-05-05] MEDS ORDERED: FOSFOMYCIN TROMETHAMINE 3 GM POWDER PACKET (MONUROL) PO ONE (20:00)
[2019-05-05 20:15] VITALS: BP 134/64
[2019-05-05] MEDS: raNITIdine SYRUP 150 MG/10 ML UDC PO SCH (20:35)
[2019-05-05] MEDS: **NOTE PATIENT COMMENT** MISC XX SCH (20:35)
[2019-05-05] MEDS: LACTOBACILLUS ACIDOPHILUS CAP (BACID) PO SCH (20:35)
[2019-05-05] MEDS: QUEtiapine FUMARATE 25 MG TAB PO SCH (20:36)
[2019-05-05] MEDS: SENNA 8.6 MG TAB (SENOKOT) PO SCH (20:36)
[2019-05-05] MEDS: GABAPENTIN 400 MG CAP PO SCH (20:36)
[2019-05-06] MEDS: oxyCODONE 5MG TAB PO PRN ×2 (04:22→14:06)
[2019-05-06 07:10] VITALS: BP 135/65
[2019-05-06] MEDS: IPRATROPIUM 0.5MG/ALBUTEROL 2.5MG INH SOL UD 3ML (DUONEB)(J7620) NEB SCH ×4 (07:16→20:00)
[2019-05-06] MEDS: OMEGA-3 1000MG CAPSULE PO SCH (07:35)
[2019-05-06] MEDS: LACTOBACILLUS ACIDOPHILUS CAP (BACID) PO SCH ×3 (07:35→21:03)
[2019-05-06] MEDS: OMEPRAZOLE 20 MG CAP PO SCH (07:35)
[2019-05-06] MEDS: DOCUSATE SODIUM 100 MG CAP PO SCH ×2 (07:36→21:03)
[2019-05-06] MEDS: GABAPENTIN 400 MG CAP PO SCH ×3 (07:36→21:03)
[2019-05-06] MEDS: ASPIRIN 81 MG CHEW TABLET PO SCH (07:36)
[2019-05-06] MEDS: amLODIPine 5 MG TAB PO SCH (07:36)
[2019-05-06] MEDS: BACLOFEN 5MG PER 1/2 TABLET PO SCH ×3 (07:36→17:43)
[2019-05-06] MEDS: hydroCHLOROthiazide 25 MG TAB PO SCH (07:37)
[2019-05-06] MEDS: ATORVASTATIN 20 MG TAB PO SCH (07:37)
[2019-05-06] MEDS: ENALAPRIL MALEATE 10 MG TAB PO SCH (07:37)
[2019-05-06] MEDS: GLIMEPIRIDE 2 MG TAB PO SCH (07:37)
[2019-05-06] MEDS: HumaLOG INSULIN (NovoLOG) PER UNIT SC SCH ×4 (07:38→20:54)
[2019-05-06] MEDS: ACETAMINOPHEN 500 MG TAB PO SCH ×3 (07:38→21:04)
[2019-05-06] MEDS: VICTOZA SQ SCH (07:40)
[2019-05-06] MEDS: LIDOCAINE 5% (LIDODERM) PATCH TD SCH (07:41)
[2019-05-06] MEDS: FLUTICASONE PROP 0.05% NASAL SPRAY 16 GM (FLONASE) NARES SCH ×2 (07:41→21:00)
[2019-05-06] MEDS: ANALGESIC BALM CRM 120 GM TOP SCH ×3 (07:42→21:05)
--- NOTE | 2019-05-06 12:44 | IPNPDOC ---
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 She reports left rib cage burning sensation as well. Her left ankle is more painful and her left leg is more swollen. she states her urinary frequency has subsided since her dose of fosfomycin. REVIEW OF SYSTEMS: The following is a completed review of systems and has been reviewed. Review of systems otherwise unremarkable. PAIN: Patient self reports left hip, ankle, and rib cage pain EYES: No recent vision changes EARS, NOSE, & THROAT: No throat pain, or dysphagia, or rhinorrhea CARDIOVASCULAR: Denies chest pain or palpitations PULMONARY: Denies shortness of breath/cough GASTROINTESTINAL: Denies constipation/diarrhea GENITOURINARY: denies dysuria/ increased frequency MUSCULOSKELETAL: left hip fracture NEUROLOGICAL:denies tremor or seizure activity HEMATOLOGICAL: denies easy bruising SKIN: left hip incision PSYCHIATRIC: +Tourette's All other review of systems found to be negative. PHYSICAL EXAMINATION: VITAL SIGNS: Please see below. GENERAL: Pleasant and cooperative. No acute distress. HEENT: PERRL. Extraocular movements intact. Clear conjunctiva CARDIOVASCULAR: Regular rate and rhythm. No murmurs, rubs, or gallops LUNGS: CTA, no wheezes. No rhonchi ABDOMEN: Soft, nontender, nondistended. Positive bowel sounds. Normal active bowel sounds NEUROLOGICAL: Alert and oriented times three. Cranial nerves II through XII grossly intact. Sensation grossly intact including first web space left foot EXTREMITIES: 5\5 strength bilateral upper extremities. 5\5 strength right lower extremity. 5/5 strength left ankle DF/PF/EHL extension (limited due to recent surgery) (+) bilat LE edema (-) Homans bilat Left ankle- pain with varus strain, no instability, Mild TTP Lateral malleoli +swelling Left upper rib cage TTP SKIN: left hip with incisions, no induration, swelling, or erythema ASSESSMENT:63-year-old F with past medical history of HTN who presents status post fall with left hip fracture PLAN: 1. Rehab- PT/OT advance gait training and ADL management, WBAT to the LLE, strengthen/maintain ROM/stretch bilat UE and LE 2. Neuro: no active concerns 3. Cardiac: pmh HTN and HLD c/u BP meds, ASA, and statin therapy -c/u HCTZ -morbid obesity, will provide dietary counseling for weight management 4. Resp: no charted hx of COPD/asthma, however patient with hx of seasonal allergies and allergic rhinitis, possible RAD, wheezing improved today -c/u Duonebs and supplemental 02 provided, will attempt to wean -recent CXR with right lower lung nodule, will need pulmonology referral for this and suspected COPD -monitor for respiratory infection -repeat XR on 05-02-19 showed possible non-dislocated left 6th rib fracture, c/u abdominal binder for comfort 5. Endo: pmh DM c/u Victoza (patient's own med), ISS coverage, and c/u metformin 6. GI ppx: ranitidine and omeprazole 7. DVT ppx: TEDs and Xarelto, dopplers negative for DVT 8. Ortho: s/p left hip ORIF- ortho consulted -left ankle pain, able to bear weight with dependent edema improving c/u acewrap during therapy 9. Psych: Tourette's c/u seroquel 25mg qHS 10. Pain: Tylenol, baclofen, will increase gabapentin to 400mg TID, norco, lidoderm patch to left rib cage and menthol salicylate to left ankle -c/ul abdominal brace to assist with left rib cage fracture -suspect rib cage burning is due to intercostal neuritis in setting of rib fracture- c/u lidoderm patch 11. Heme: post-op anemia, monitor and transfuse if <8 12. : had increased frequency overnight,UA +nitrites, s/p Fosfomycin. awaiting ucx-symptoms resolved 11. Dispo: 05-11-19 to home, progressing towards goals Allergies Coded Allergies: Sulfa (Sulfonamide Antibiotics) (Verified Allergy, Unknown, upset stomach, 04/25/19) Vital Signs Vital Signs Date Time Temp Pulse Resp B/P (MAP) Pulse Ox O2 Delivery O2 Flow Rate FiO2 05/06/19 07:37 137/71 05/06/19 07:36 75 05/06/19 07:10 97.4 18 77 Room Air 05/01/19 04:45 2.0 Laboratory Data Labs 24H Laboratory Tests 2 05/05/19 16:58: Bedside Glucose (Misc Panel) 146H 05/05/19 20:09: Bedside Glucose (Misc Panel) 143H 05/06/19 06:50: Bedside Glucose (Misc Panel) 129H 05/06/19 11:44: Bedside Glucose (Misc Panel) 52L 05/06/19 12:11: Bedside Glucose (Misc Panel) 73L Microbiology Microbiology 05/05/19 Urine Culture, Received Pending Current Medications Current Medications Current Medications Medications (Trade) Dose Ordered Sig/Noemi Route PRN Reason Start Time Stop Time Status Last Admin Dose Admin Acetaminophen (Tylenol Tab) 1,000 mg TID PO 04/27/19 21:00 05/06/19 07:38 Albuterol/ Ipratropium (Duoneb (Ipr 0.5mg/Alb 2.5mg)) 3 ml RTID NEB 04/27/19 20:00 05/06/19 07:16 Amlodipine Besylate (Norvasc) 5 mg DAILY PO 04/28/19 09:00 05/06/19 07:36 Aspirin (Aspirin Chewable) 81 mg DAILY PO 04/28/19 09:00 05/06/19 07:36 Atorvastatin Calcium (Lipitor) 20 mg DAILY PO 04/28/19 09:00 05/06/19 07:37 Baclofen (Lioresal) 5 mg DAILY PRN PO SPASMS 04/27/19 18:45 Baclofen (Lioresal) 5 mg TID@0800,1300,1800 PO 04/27/19 18:00 05/06/19 12:13 Dextrose (Dextrose 50%) 25 ml ASDIRECTED PRN IV SEE LABEL COMMENTS 04/27/19 18:45 Docusate Sodium (Colace) 100 mg BID PO 04/27/19 21:00 05/06/19 07:36 Enalapril Maleate (Vasotec) 20 mg DAILY PO 04/28/19 09:00 05/06/19 07:37 Fish Oil ([place]-3 (1000mg)) 1 cap DAILY PO 04/28/19 09:00 05/06/19 07:35 Fluticasone Propionate (Flonase 0.05% Nasal [place]) 1 spray BID NARES 04/27/19 21:00 05/06/19 07:41 Gabapentin (Neurontin) 300 mg TID PO 04/27/19 21:00 05/05/19 18:14 DC 05/05/19 17:29 Gabapentin (Neurontin) 400 mg TID PO 05/05/19 21:00 05/06/19 07:36 Glimepiride (Amaryl) 4 mg DAILY@0730 PO 04/28/19 07:30 05/06/19 07:37 Glucagon (Glucagon) 1 mg ASDIRECTED PRN SC SEE LABEL COMMENTS 04/27/19 18:45 Glucose (Glucose) 16 GM ASDIRECTED PRN PO SEE LABEL COMMENTS 04/27/19 18:45 Hydrochlorothiazide (Hydrodiuril) 25 mg DAILY PO 04/28/19 09:00 05/06/19 07:37 Insulin Human Lispro (HumaLOG INSULIN) SEE PROTOCOL TABLE AC SC 04/28/19 07:30 05/06/19 07:38 Insulin Human Lispro (HumaLOG INSULIN) SEE PROTOCOL TABLE QHS SC 04/27/19 21:00 04/27/19 20:49 Lactobacillus Acidophilus (Bacid) 1 ea TID PO 05/05/19 21:00 05/06/19 07:35 Lidocaine (Lidoderm Patch) 1 patch DAILY TD 04/28/19 09:00 05/06/19 07:41 Magnesium Hydroxide (Milk Of Magnesia) 30 ml DAILYPRN PRN PO CONSTIPATION 04/28/19 09:00 04/29/19 10:20 Menthol/Methyl Salicylate (Bengay Cream) 1 dose TID TOP 04/28/19 09:00 05/06/19 07:42 Metformin HCl (Glucophage Xr) 2,000 mg DAILY@18 PO 04/27/19 18:00 05/05/19 17:29 Miscellaneous (Unresolved Clarification Entry) SEE LABEL COMMENTS DAILY XX 05/03/19 09:00 05/04/19 07:07 DC Miscellaneous (Unresolved Clarification Entry) SEE LABEL COMMENTS DAILY XX 05/04/19 09:00 05/04/19 14:48 DC Miscellaneous (Unresolved Patient Own Med Order) SEE LABEL COMMENTS DAILY XX 04/27/19 09:00 04/27/19 19:57 DC Non-Formulary Medication ( See Comment Field Below ) REMOVE LIDODERM PATCH DAILY@21 XX 04/28/19 21:00 05/05/19 20:35 Omeprazole (PriLOSEC) 40 mg DAILY PO 04/28/19 09:00 05/06/19 07:35 Ondansetron HCl (Zofran Odt) 4 mg Q6HP PRN PO NAUSEA OR VOMITING 04/29/19 11:30 Oxycodone HCl (Roxicodone, Oxyir) 5 mg Q4HP PRN PO PAIN 04/27/19 18:45 05/06/19 04:22 Patient Own Medication (Patient'S Own Med) victoza INJECTION(18mg/ 3mL) INJECT 1.... DAILY SQ 04/28/19 09:00 05/06/19 07:40 Quetiapine Fumarate (SEROquel) 25 mg QHS PO 04/27/19 21:00 05/05/19 20:36 Ranitidine HCl (ZANTAC Syrup) 150 mg QHS PO 04/27/19 21:00 05/05/19 20:35 Rivaroxaban (Xarelto) 10 mg DAILY@1800 PO 04/27/19 18:00 05/05/19 17:29 Senna (Senokot) 1 tab QHS PO 04/27/19 21:00 05/05/19 20:36 JUAN J RODRIGUEZ MD May 06, 2019 12:44
[2019-05-06 14:00] VITALS: BP 121/57
--- NOTE | 2019-05-06 16:00 | IPNPDOC ---
Subjective Date Seen The patient was seen on 05/06/19. Subjective Chief Complaint/HPI Ms Dockery is doing well today. She was able to walk around the hallways of the hospital without problems. She has gained room privileges and will use her walker to ambulate while she continues to recover. Her leg cramps have improved with an increased dose of Gabapentin; increased dose does not make her overly drowsy. Pain in the L hip is well managed with current medications. L ankle has been wrapped by rehab and she is able to bear weight on it. The L leg has been swelling slightly and she has been told it is due to the trauma and fracture to the ipsilateral hip. Patient is no longer using oxygen. Constitutional: Denies: Chills, Fever Eyes: Denies: Pain, Vision change ENT: Denies: Head Aches, Dysphagia Skin: Denies: Rash Pulmonary: Denies: Dyspnea, Cough Cardiovascular: Denies: Chest Pain, Palpitations, Lt Headedness Gastrointestinal: Denies: Abdominal Pain Hematologic: Denies: Bleeding Excessively Musculoskeletal: Reports: Joint Pain (left hip aches at times ) Neurological: Reports: Other Symptoms (tic from Tourette's); Denies: Weakness, Change in speech Psych: Reports: Mood Normal Objective Physical Examination General Exam: Positive: Alert, Cooperative, No Acute Distress Eye Exam: Positive: Conjunctiva & lids normal ENT Exam: Positive: Atraumatic, Mucous membr. moist/pink Neck Exam: Positive: Supple; Negative: thyromegaly Chest Exam: Positive: Clear to auscultation, Normal air movement Heart Exam: Positive: Rate Normal, Normal S1, Normal S2 Abdomen Exam: Positive: Soft; Negative: Tenderness Extremity Exam: Positive: Edema (2+ edema L ankle extending to the thigh ); Negative: Clubbing Skin Exam: Positive: Nl turgor and temperature Neuro Exam: Positive: Normal Speech; Negative: Normal Gait (ambulates well with rollator ) Psych Exam: Positive: Mental status NL, Mood NL Assessment /Plan Plan/VTE VTE Prophylaxis Ordered?: Yes (Current Xarelto regimen) Plan Diet: Continue Current Activity: Continue Current Therapy: PT Patient will continue to be managed per Acute Rehab Unit. Hospitalist group will follow Ms. Dockery medically while she is admitted. VS, I&O, 24H, Fishbone Vital Signs/I&O Vital Signs Date Time Temp Pulse Resp B/P (MAP) Pulse Ox O2 Delivery O2 Flow Rate FiO2 05/06/19 14:52 17 05/06/19 14:00 98.4 85 121/57 (78) 94 Room Air 05/01/19 04:45 2.0 I&O- Last 24 Hours up to 6 AM 05/06/19 06:00 Intake Total 1040 ml Output Total 0 ml Balance 1040 ml Laboratory Data 24H LABS Laboratory Tests 2 05/05/19 16:58: Bedside Glucose (Misc Panel) 146H 05/05/19 20:09: Bedside Glucose (Misc Panel) 143H 05/06/19 06:50: Bedside Glucose (Misc Panel) 129H 05/06/19 11:44: Bedside Glucose (Misc Panel) 52L 05/06/19 12:11: Bedside Glucose (Misc Panel) 73L 05/06/19 12:57: Bedside Glucose (Misc Panel) 69L 05/06/19 13:25: Bedside Glucose (Misc Panel) 94 Microbiology Microbiology 05/05/19 Urine Culture, Received Pending AMY HENNESSY PA-C May 06, 2019 16:00
[2019-05-06] MEDS: RIVAROXABAN 10 MG TAB (XARELTO) PO SCH (17:43)
[2019-05-06 20:05] VITALS: BP 120/65
[2019-05-06] MEDS: QUEtiapine FUMARATE 25 MG TAB PO SCH (21:03)
[2019-05-06] MEDS: SENNA 8.6 MG TAB (SENOKOT) PO SCH (21:03)
[2019-05-06] MEDS: raNITIdine SYRUP 150 MG/10 ML UDC PO SCH (21:04)
[2019-05-06] MEDS: **NOTE PATIENT COMMENT** MISC XX SCH (21:05)
[2019-05-07] MEDS: oxyCODONE 5MG TAB PO PRN (04:42)
[2019-05-07 06:00] VITALS: BP 154/73
[2019-05-07 07:04] LABS: BASO % 0.4 % (0.0-1.0); EOS # 0.2 10^3/uL (0.0-0.5); EOS % 2.3 % (0.0-3.0); HEMATOCRIT 33.4 % (36.0-47.0); HEMOGLOBIN 10.1 g/dl (12.0-15.5); LYMPH # 1.2 10^3/uL (1.5-5.0); LYMPH % 12.8 % (24.0-44.0); MEAN CORPUSCULAR HEMOGLOBIN 27.8 pg (27.0-33.0); MEAN CORPUSCULAR HGB CONC 30.2 g/dl (32.0-36.5); MONO # 0.8 10^3/uL (0.0-0.8); MONO % 8.4 % (0.0-5.0); NEUTROPHILS % 74.9 % (36.0-66.0); PLATELET COUNT, AUTOMATED 420 10^3/uL (150-450); RED BLOOD COUNT 3.63 10^6/uL (4.00-5.40); WHITE BLOOD COUNT 9.3 10^3/uL (4.0-10.0)
[2019-05-07 07:22] LABS: BLOOD UREA NITROGEN 17 MG/DL (7-18); CALCIUM LEVEL 8.8 MG/DL (8.8-10.2); CARBON DIOXIDE LEVEL 32 MEQ/L (21-32); CHLORIDE LEVEL 101 MEQ/L (98-107); CREATININE FOR GFR 0.84 MG/DL (0.55-1.30); GLOMERULAR FILTRATION RATE > 60.0 (>45); GLUCOSE, FASTING 150 MG/DL (70-100); POTASSIUM SERUM 4.4 MEQ/L (3.5-5.1); SODIUM LEVEL 137 MEQ/L (136-145)
[2019-05-07] MEDS: HumaLOG INSULIN (NovoLOG) PER UNIT SC SCH ×4 (07:30→21:00)
[2019-05-07] MEDS: IPRATROPIUM 0.5MG/ALBUTEROL 2.5MG INH SOL UD 3ML (DUONEB)(J7620) NEB SCH ×3 (07:38→20:00)
[2019-05-07] MEDS: LIDOCAINE 5% (LIDODERM) PATCH TD SCH (08:16)
[2019-05-07] MEDS: ENALAPRIL MALEATE 10 MG TAB PO SCH (08:17)
[2019-05-07] MEDS: ASPIRIN 81 MG CHEW TABLET PO SCH (08:17)
[2019-05-07] MEDS: amLODIPine 5 MG TAB PO SCH (08:17)
[2019-05-07] MEDS: LACTOBACILLUS ACIDOPHILUS CAP (BACID) PO SCH ×3 (08:17→21:33)
[2019-05-07] MEDS: OMEGA-3 1000MG CAPSULE PO SCH (08:17)
[2019-05-07] MEDS: GABAPENTIN 400 MG CAP PO SCH ×3 (08:17→21:36)
[2019-05-07] MEDS: BACLOFEN 5MG PER 1/2 TABLET PO SCH ×3 (08:17→17:12)
[2019-05-07] MEDS: OMEPRAZOLE 20 MG CAP PO SCH (08:17)
[2019-05-07] MEDS: ATORVASTATIN 20 MG TAB PO SCH (08:17)
[2019-05-07] MEDS: DOCUSATE SODIUM 100 MG CAP PO SCH ×2 (08:18→21:36)
[2019-05-07] MEDS: VICTOZA SQ SCH (08:18)
[2019-05-07] MEDS: ACETAMINOPHEN 500 MG TAB PO SCH ×3 (08:18→21:36)
[2019-05-07] MEDS: hydroCHLOROthiazide 25 MG TAB PO SCH (08:18)
[2019-05-07] MEDS: FLUTICASONE PROP 0.05% NASAL SPRAY 16 GM (FLONASE) NARES SCH ×2 (08:22→21:37)
[2019-05-07] MEDS: ANALGESIC BALM CRM 120 GM TOP SCH ×3 (08:23→21:37)
[2019-05-07 14:00] VITALS: BP 118/59
[2019-05-07] MEDS: RIVAROXABAN 10 MG TAB (XARELTO) PO SCH (17:12)
--- NOTE | 2019-05-07 19:33 | IPNPDOC ---
Text Note Date of Service The patient was seen on 05/07/19. NOTE S: Pt examined at bedside. Working with PT and improve gradually. States her pain is controlled and has some complaints today. Is looking forward to going home likely subclinical Friday. No fever, chills, nausea, vomiting, abdominal pain. Rib pain leg pain improving. PE: Vitals: see below General: NAD, A&Ox3, resting comfortably HEENT: NCAT, EOMI, anicteric sclera, MMM CV: RRR, no murmurs or clicks or rub. No edema RESP: CTAB, no w/r/r/ ABD: soft, NT, ND. Benign. Minimal tenderness to left rib cage EXTREMITIES: 2+ radial pulses b/l, able to move all extremities, ambulating with rolling walker, minimal tenderness to left hip and leg NEURO: no focal deficits or acute changes A/P: 1. Left hip fracture: A/P orthopedic intervention. Work with PT and OT. Per PMNR, Xarelto for anticoagulation 2. NIDDM 2 with diabetic neuropathy: controlled, continue insulin sliding scale long-acting insulin, gabapentin 3. Hypertension: Controlled on current regimen, continued 4. Hyperlipidemia: Continue statin and aspirin 5. GERD: Continue PPI 6. Constipation: Resolved with bowel regimen in place. No abdominal pain or any other GI complaints 7. Chronic low back pain: Under control with pain regimen and PT DVT ppx: Xarelto, as per PMR DISPO: doing well from medical standpoint. Work with PT and dc as per PM&R. VS,Fishbone, I+O VS, Fishbone, I+O Laboratory Tests 05/07/19 06:47 Vital Signs Date Time Temp Pulse Resp B/P (MAP) Pulse Ox O2 Delivery O2 Flow Rate FiO2 05/07/19 14:00 97.6 89 18 118/59 (78) 98 Room Air 05/01/19 04:45 2.0 I&O- Last 24 Hours up to 6 AM 05/07/19 06:00 Intake Total 930 ml Balance 930 ml GME ATTESTATION GME ATTESTATION My faculty preceptor for this patient encounter was physically present during the encounter and was fully available. All aspects of the patient interview, examination, medical decision making process, and medical care plan development were reviewed and approved by the faculty preceptor. The faculty preceptor is aware and concurs with the plan as stated in the body of this note and will attest to such by his/her cosignature. ATTENDING NOTE I, Lashay Penny, have independently examined this patient and performed my own physical exam, as well as reviewed the documentation and edited where necessary. I have discussed in detail with the resident / student the findings and plan of treatment as documented by the resident / student and edited their note. I agree with their findings and treatment plan and have edited their documentation. I will continue to follow the patient during this hospital stay. ISABEL MAURICIO DO May 07, 2019 19:33 LASHAY PENNY MD May 08, 2019 15:19
[2019-05-07 20:00] VITALS: BP 117/63
[2019-05-07] MEDS: QUEtiapine FUMARATE 25 MG TAB PO SCH (21:33)
[2019-05-07] MEDS: raNITIdine SYRUP 150 MG/10 ML UDC PO SCH (21:33)
[2019-05-07] MEDS: SENNA 8.6 MG TAB (SENOKOT) PO SCH (21:36)
[2019-05-07] MEDS: **NOTE PATIENT COMMENT** MISC XX SCH (21:37)
[2019-05-08] MEDS: oxyCODONE 5MG TAB PO PRN (05:56)
[2019-05-08 06:00] VITALS: BP 160/72
[2019-05-08] MEDS: HumaLOG INSULIN (NovoLOG) PER UNIT SC SCH ×4 (07:30→21:00)
[2019-05-08] MEDS: IPRATROPIUM 0.5MG/ALBUTEROL 2.5MG INH SOL UD 3ML (DUONEB)(J7620) NEB SCH ×3 (08:00→20:00)
[2019-05-08] MEDS: LIDOCAINE 5% (LIDODERM) PATCH TD SCH (09:14)
[2019-05-08] MEDS: GABAPENTIN 400 MG CAP PO SCH ×3 (09:14→22:01)
[2019-05-08] MEDS: OMEGA-3 1000MG CAPSULE PO SCH (09:14)
[2019-05-08] MEDS: VICTOZA SQ SCH (09:14)
[2019-05-08] MEDS: ATORVASTATIN 20 MG TAB PO SCH (09:15)
[2019-05-08] MEDS: LACTOBACILLUS ACIDOPHILUS CAP (BACID) PO SCH ×3 (09:15→22:01)
[2019-05-08] MEDS: amLODIPine 5 MG TAB PO SCH (09:15)
[2019-05-08] MEDS: ACETAMINOPHEN 500 MG TAB PO SCH ×3 (09:15→22:02)
[2019-05-08] MEDS: hydroCHLOROthiazide 25 MG TAB PO SCH (09:16)
[2019-05-08] MEDS: BACLOFEN 5MG PER 1/2 TABLET PO SCH ×3 (09:16→17:19)
[2019-05-08] MEDS: ASPIRIN 81 MG CHEW TABLET PO SCH (09:16)
[2019-05-08] MEDS: ANALGESIC BALM CRM 120 GM TOP SCH ×3 (09:16→21:00)
[2019-05-08] MEDS: DOCUSATE SODIUM 100 MG CAP PO SCH ×2 (09:16→22:02)
[2019-05-08] MEDS: OMEPRAZOLE 20 MG CAP PO SCH (09:16)
[2019-05-08] MEDS: FLUTICASONE PROP 0.05% NASAL SPRAY 16 GM (FLONASE) NARES SCH ×2 (09:16→22:04)
[2019-05-08] MEDS: ENALAPRIL MALEATE 10 MG TAB PO SCH (09:16)
[2019-05-08 14:00] VITALS: BP 123/65
[2019-05-08] MEDS: RIVAROXABAN 10 MG TAB (XARELTO) PO SCH (17:19)
[2019-05-08 20:00] VITALS: BP 129/67
[2019-05-08] MEDS: **NOTE PATIENT COMMENT** MISC XX SCH (21:00)
[2019-05-08] MEDS: SENNA 8.6 MG TAB (SENOKOT) PO SCH (22:01)
[2019-05-08] MEDS: raNITIdine SYRUP 150 MG/10 ML UDC PO SCH (22:01)
[2019-05-08] MEDS: QUEtiapine FUMARATE 25 MG TAB PO SCH (22:02)
[2019-05-09] MEDS: oxyCODONE 5MG TAB PO PRN (02:57)
[2019-05-09 05:55] VITALS: BP 131/67
[2019-05-09] MEDS: HumaLOG INSULIN (NovoLOG) PER UNIT SC SCH ×4 (07:30→20:14)
[2019-05-09] MEDS: DOCUSATE SODIUM 100 MG CAP PO SCH ×2 (07:48→20:11)
[2019-05-09] MEDS: FLUTICASONE PROP 0.05% NASAL SPRAY 16 GM (FLONASE) NARES SCH ×2 (07:49→20:12)
[2019-05-09] MEDS: ANALGESIC BALM CRM 120 GM TOP SCH ×3 (07:49→20:13)
[2019-05-09] MEDS: IPRATROPIUM 0.5MG/ALBUTEROL 2.5MG INH SOL UD 3ML (DUONEB)(J7620) NEB SCH ×3 (08:00→19:57)
[2019-05-09] MEDS: VICTOZA SQ SCH (08:02)
[2019-05-09] MEDS: BACLOFEN 5MG PER 1/2 TABLET PO SCH ×3 (08:03→16:55)
[2019-05-09] MEDS: OMEPRAZOLE 20 MG CAP PO SCH (08:03)
[2019-05-09] MEDS: GABAPENTIN 400 MG CAP PO SCH ×3 (08:03→20:10)
[2019-05-09] MEDS: LIDOCAINE 5% (LIDODERM) PATCH TD SCH (08:03)
[2019-05-09] MEDS: hydroCHLOROthiazide 25 MG TAB PO SCH (08:03)
[2019-05-09] MEDS: ENALAPRIL MALEATE 10 MG TAB PO SCH (08:04)
[2019-05-09] MEDS: OMEGA-3 1000MG CAPSULE PO SCH (08:04)
[2019-05-09] MEDS: amLODIPine 5 MG TAB PO SCH (08:04)
[2019-05-09] MEDS: LACTOBACILLUS ACIDOPHILUS CAP (BACID) PO SCH ×3 (08:04→20:10)
[2019-05-09] MEDS: ASPIRIN 81 MG CHEW TABLET PO SCH (08:04)
[2019-05-09] MEDS: ATORVASTATIN 20 MG TAB PO SCH (08:04)
[2019-05-09] MEDS: ACETAMINOPHEN 500 MG TAB PO SCH ×3 (08:05→20:10)
[2019-05-09 14:00] VITALS: BP 133/65
[2019-05-09] MEDS: RIVAROXABAN 10 MG TAB (XARELTO) PO SCH (16:55)
[2019-05-09 20:00] VITALS: BP 132/82
[2019-05-09] MEDS: QUEtiapine FUMARATE 25 MG TAB PO SCH (20:10)
[2019-05-09] MEDS: raNITIdine SYRUP 150 MG/10 ML UDC PO SCH (20:10)
[2019-05-09] MEDS: SENNA 8.6 MG TAB (SENOKOT) PO SCH (20:11)
[2019-05-09] MEDS: **NOTE PATIENT COMMENT** MISC XX SCH (20:13)
[2019-05-10] MEDS: oxyCODONE 5MG TAB PO PRN (03:55)
[2019-05-10 06:00] VITALS: BP 113/58
[2019-05-10] MEDS: HumaLOG INSULIN (NovoLOG) PER UNIT SC SCH ×3 (07:30→11:40)
[2019-05-10] MEDS: IPRATROPIUM 0.5MG/ALBUTEROL 2.5MG INH SOL UD 3ML (DUONEB)(J7620) NEB SCH ×2 (08:00→12:25)
[2019-05-10 08:10] VITALS: BP 113/58
[2019-05-10] MEDS: BACLOFEN 5MG PER 1/2 TABLET PO SCH (08:10)
[2019-05-10] MEDS: DOCUSATE SODIUM 100 MG CAP PO SCH (08:10)
[2019-05-10] MEDS: LACTOBACILLUS ACIDOPHILUS CAP (BACID) PO SCH (08:10)
[2019-05-10] MEDS: amLODIPine 5 MG TAB PO SCH (08:10)
[2019-05-10] MEDS: ACETAMINOPHEN 500 MG TAB PO SCH (08:11)
[2019-05-10] MEDS: OMEPRAZOLE 20 MG CAP PO SCH (08:11)
[2019-05-10] MEDS: OMEGA-3 1000MG CAPSULE PO SCH (08:11)
[2019-05-10] MEDS: ASPIRIN 81 MG CHEW TABLET PO SCH (08:11)
[2019-05-10] MEDS: ENALAPRIL MALEATE 10 MG TAB PO SCH (08:11)
[2019-05-10] MEDS: GABAPENTIN 400 MG CAP PO SCH (08:12)
[2019-05-10] MEDS: VICTOZA SQ SCH (08:12)
[2019-05-10] MEDS: ATORVASTATIN 20 MG TAB PO SCH (08:12)
[2019-05-10] MEDS: LIDOCAINE 5% (LIDODERM) PATCH TD SCH (08:12)
[2019-05-10] MEDS: FLUTICASONE PROP 0.05% NASAL SPRAY 16 GM (FLONASE) NARES SCH (08:12)
[2019-05-10] MEDS: hydroCHLOROthiazide 25 MG TAB PO SCH (08:12)
[2019-05-10] MEDS: ANALGESIC BALM CRM 120 GM TOP SCH (08:13)
[2019-05-10] MEDS ORDERED: XARE10TA PO (10:38)
[2019-05-10] MEDS ORDERED: ASPI81CH8 PO (10:38)
[2019-05-10] MEDS ORDERED: AMLO5TAB6 PO (10:38)
[2019-05-10] MEDS ORDERED: HYDR25TAB PO (10:38)
[2019-05-10] MEDS ORDERED: ATOR1TAB21 PO (10:38)
[2019-05-10] MEDS ORDERED: BACL10TA2 PO (10:38)
[2019-05-10] MEDS ORDERED: OXYC-517 PO (10:38)
[2019-05-10] MEDS ORDERED: GABA-845 PO (10:38)
[2019-05-10] MEDS ORDERED: RANI15TA PO (10:38)
[2019-05-10] MEDS ORDERED: OMEP-218 PO (10:38)
[2019-05-10] MEDS ORDERED: ENAL10TA2 PO (10:38)
--- NOTE | 2019-05-10 10:44 | IPNPDOC ---
PM&R Progress Note DATE OF SERVICE: May 07, 2019 Disability Coordinator Progress Note Subjective: Patient reporting she continue to have improved urinary symptoms and is worried about having low blood sugar levels this morning. REVIEW OF SYSTEMS: The following is a completed review of systems and has been reviewed. Review of systems otherwise unremarkable. PAIN: Patient self reports left hip, ankle, and rib cage pain EYES: No recent vision changes EARS, NOSE, & THROAT: No throat pain, or dysphagia, or rhinorrhea CARDIOVASCULAR: Denies chest pain or palpitations PULMONARY: Denies shortness of breath/cough GASTROINTESTINAL: Denies constipation/diarrhea GENITOURINARY: denies dysuria/ increased frequency MUSCULOSKELETAL: left hip fracture NEUROLOGICAL:denies tremor or seizure activity HEMATOLOGICAL: denies easy bruising SKIN: left hip incision PSYCHIATRIC: +Tourette's All other review of systems found to be negative. PHYSICAL EXAMINATION: VITAL SIGNS: Please see below. GENERAL: Pleasant and cooperative. No acute distress. HEENT: PERRL. Extraocular movements intact. Clear conjunctiva CARDIOVASCULAR: Regular rate and rhythm. No murmurs, rubs, or gallops LUNGS: CTA, no wheezes. No rhonchi ABDOMEN: Soft, nontender, nondistended. Positive bowel sounds. Normal active bowel sounds NEUROLOGICAL: Alert and oriented times three. Cranial nerves II through XII grossly intact. Sensation grossly intact including first web space left foot EXTREMITIES: 5\5 strength bilateral upper extremities. 5\5 strength right lower extremity. 5/5 strength left ankle DF/PF/EHL extension (limited due to recent surgery) (+) bilat LE edema (-) Homans bilat Left ankle- pain with varus strain, no instability, Mild TTP Lateral malleoli +swelling Left upper rib cage TTP SKIN: left hip with incisions, no induration, swelling, or erythema ASSESSMENT:63-year-old F with past medical history of HTN who presents status post fall with left hip fracture PLAN: 1. Rehab- PT/OT advance gait training and ADL management, WBAT to the LLE, strengthen/maintain ROM/stretch bilat UE and LE 2. Neuro: no active concerns 3. Cardiac: pmh HTN and HLD c/u BP meds, ASA, and statin therapy -c/u HCTZ -morbid obesity, will provide dietary counseling for weight management 4. Resp: no charted hx of COPD/asthma, however patient with hx of seasonal allergies and allergic rhinitis, possible RAD, wheezing improved today -c/u Duonebs and supplemental 02 provided, will attempt to wean -recent CXR with right lower lung nodule, will need pulmonology referral for this and suspected COPD -monitor for respiratory infection -repeat XR on 05-02-19 showed possible non-dislocated left 6th rib fracture, c/u abdominal binder for comfort 5. Endo: pmh DM c/u Victoza (patient's own med), ISS coverage, will hold metformin and glimeperide as patient with low FS 6. GI ppx: ranitidine and omeprazole 7. DVT ppx: TEDs and Xarelto, dopplers negative for DVT 8. Ortho: s/p left hip ORIF- ortho consulted -left ankle pain, able to bear weight with dependent edema improving c/u acewrap during therapy 9. Psych: Tourette's c/u seroquel 25mg qHS 10. Pain: Tylenol, baclofen, will increase gabapentin to 400mg TID, norco, lidoderm patch to left rib cage and menthol salicylate to left ankle -c/u abdominal brace to assist with left rib cage fracture -suspect rib cage burning is due to intercostal neuritis in setting of rib fracture- c/u lidoderm patch 11. Heme: post-op anemia, monitor and transfuse if <8 12. : had increased frequency overnight,UA +nitrites, s/p Fosfomycin. Ucx +e. coli, patient's symtpoms resolved s/p fosfomycin 11. Dispo: 05-11-19 to home, progressing towards goals Allergies Coded Allergies: Sulfa (Sulfonamide Antibiotics) (Verified Allergy, Unknown, upset stomach, 04/25/19) Vital Signs Vital Signs Date Time Temp Pulse Resp B/P (MAP) Pulse Ox O2 Delivery O2 Flow Rate FiO2 05/10/19 08:10 76 113/58 05/10/19 06:00 98.6 19 99 Room Air Laboratory Data Labs 24H Laboratory Tests 2 05/09/19 12:55: Bedside Glucose (Misc Panel) 77L 05/09/19 16:51: Bedside Glucose (Misc Panel) 135H 05/09/19 19:46: Bedside Glucose (Misc Panel) 121H 05/10/19 05:59: Bedside Glucose (Misc Panel) 193H Microbiology Microbiology 05/05/19 Urine Culture - Final, Complete Escherichia Coli Current Medications Current Medications Current Medications Medications (Trade) Dose Ordered Sig/Noemi Route PRN Reason Start Time Stop Time Status Last Admin Dose Admin Acetaminophen (Tylenol Tab) 1,000 mg TID PO 04/27/19 21:00 05/10/19 08:11 Albuterol/ Ipratropium (Duoneb (Ipr 0.5mg/Alb 2.5mg)) 3 ml RTID NEB 04/27/19 20:00 05/06/19 14:00 Amlodipine Besylate (Norvasc) 5 mg DAILY PO 04/28/19 09:00 05/10/19 08:10 Aspirin (Aspirin Chewable) 81 mg DAILY PO 04/28/19 09:00 05/10/19 08:11 Atorvastatin Calcium (Lipitor) 20 mg DAILY PO 04/28/19 09:00 05/10/19 08:12 Baclofen (Lioresal) 5 mg DAILY PRN PO SPASMS 04/27/19 18:45 Baclofen (Lioresal) 5 mg TID@0800,1300,1800 PO 04/27/19 18:00 05/10/19 08:10 Dextrose (Dextrose 50%) 25 ml ASDIRECTED PRN IV SEE LABEL COMMENTS 04/27/19 18:45 Docusate Sodium (Colace) 100 mg BID PO 04/27/19 21:00 05/10/19 08:10 Enalapril Maleate (Vasotec) 20 mg DAILY PO 04/28/19 09:00 05/10/19 08:11 Fish Oil ([place]-3 (1000mg)) 1 cap DAILY PO 04/28/19 09:00 05/10/19 08:11 Fluticasone Propionate (Flonase 0.05% Nasal Artemus) 1 spray BID NARES 04/27/19 21:00 05/10/19 08:12 Gabapentin (Neurontin) 300 mg TID PO 04/27/19 21:00 05/05/19 18:14 DC 05/05/19 17:29 Gabapentin (Neurontin) 400 mg TID PO 05/05/19 21:00 05/10/19 08:12 Glimepiride (Amaryl) 4 mg DAILY@0730 PO 04/28/19 07:30 05/06/19 13:08 DC 05/06/19 07:37 Glucagon (Glucagon) 1 mg ASDIRECTED PRN SC SEE LABEL COMMENTS 04/27/19 18:45 Glucose (Glucose) 16 GM ASDIRECTED PRN PO SEE LABEL COMMENTS 04/27/19 18:45 Hydrochlorothiazide (Hydrodiuril) 25 mg DAILY PO 04/28/19 09:00 05/10/19 08:12 Insulin Human Lispro (HumaLOG INSULIN) SEE PROTOCOL TABLE AC SC 04/28/19 07:30 05/06/19 07:38 Insulin Human Lispro (HumaLOG INSULIN) SEE PROTOCOL TABLE QHS SC 04/27/19 21:00 04/27/19 20:49 Lactobacillus Acidophilus (Bacid) 1 ea TID PO 05/05/19 21:00 05/10/19 08:10 Lidocaine (Lidoderm Patch) 1 patch DAILY TD 04/28/19 09:00 05/10/19 08:12 Magnesium Hydroxide (Milk Of Magnesia) 30 ml DAILYPRN PRN PO CONSTIPATION 04/28/19 09:00 04/29/19 10:20 Menthol/Methyl Salicylate (Bengay Cream) 1 dose TID TOP 04/28/19 09:00 05/10/19 08:13 Metformin HCl (Glucophage Xr) 2,000 mg DAILY@18 PO 04/27/19 18:00 05/06/19 13:08 DC 05/05/19 17:29 Miscellaneous (Unresolved Clarification Entry) SEE LABEL COMMENTS DAILY XX 05/03/19 09:00 05/04/19 07:07 DC Miscellaneous (Unresolved Clarification Entry) SEE LABEL COMMENTS DAILY XX 05/04/19 09:00 05/04/19 14:48 DC Miscellaneous (Unresolved Patient Own Med Order) SEE LABEL COMMENTS DAILY XX 04/27/19 09:00 04/27/19 19:57 DC Non-Formulary Medication ( See Comment Field Below ) REMOVE LIDODERM PATCH DAILY@21 XX 04/28/19 21:00 05/09/19 20:13 Omeprazole (PriLOSEC) 40 mg DAILY PO 04/28/19 09:00 05/10/19 08:11 Ondansetron HCl (Zofran Odt) 4 mg Q6HP PRN PO NAUSEA OR VOMITING 04/29/19 11:30 Oxycodone HCl (Roxicodone, Oxyir) 5 mg Q4HP PRN PO PAIN 04/27/19 18:45 05/10/19 03:55 Patient Own Medication (Patient'S Own Med) victoza INJECTION(18mg/ 3mL) INJECT 1.... DAILY SQ 04/28/19 09:00 05/10/19 08:12 Quetiapine Fumarate (SEROquel) 25 mg QHS PO 04/27/19 21:00 05/09/19 20:10 Ranitidine HCl (ZANTAC Syrup) 150 mg QHS PO 04/27/19 21:00 05/09/19 20:10 Rivaroxaban (Xarelto) 10 mg DAILY@1800 PO 04/27/19 18:00 05/09/19 16:55 Senna (Senokot) 1 tab QHS PO 04/27/19 21:00 05/08/19 22:01 JUAN J RODRIGUEZ MD May 10, 2019 10:44
--- NOTE | 2019-05-10 11:44 | IPNPDOC ---
Text Note Date of Service The patient was seen on 05/10/19. NOTE HOSPITALIST NOTE S: Pt examined at bedside. Feeling well and eager to go home. No complaints or reported events overnight. Pain under control. No f/c/n/v/bleeding. PE: Vitals: see below General: NAD, A&Ox3, resting comfortably HEENT: NCAT, EOMI, anicteric sclera, MMM CV: RRR, no murmurs or clicks or rub. No edema RESP: CTAB, no w/r/r/ ABD: soft, NT, ND. Nontender rib cage today EXTREMITIES: 2+ radial pulses b/l, able to move all extremities, 5/5 strength, minimal tenderness to left hip and leg NEURO: no focal deficits or acute changes A/P: 1. Left hip fracture: S/P left femur ORIF 04/26. Work with PT and OT. Diet, act ivity, pain, & anticoag as per PM&R 2. NIDDM 2 with diabetic neuropathy: controlled, continue insulin sliding scale long-acting insulin, gabapentin 3. Hypertension: Controlled on current regimen, continued 4. Hyperlipidemia: Continue statin and aspirin 5. GERD: Continue PPI 6. Constipation: continue bowel regimen and reduce opioids as possible. No GI complaints 7. Chronic low back pain: Under control with pain regimen and PT DVT ppx: Xarelto, as per PMR DISPO: doing well from medical standpoint. Work with PT. Is scheduled for d/c home today with continued o/p PT per PM&R. VS,Fishbone, I+O VS, Fishbone, I+O Vital Signs Date Time Temp Pulse Resp B/P (MAP) Pulse Ox O2 Delivery O2 Flow Rate FiO2 05/10/19 08:10 76 113/58 05/10/19 06:00 98.6 19 99 Room Air I&O- Last 24 Hours up to 6 AM 05/10/19 06:00 Intake Total 1260 ml Balance 1260 ml GME ATTESTATION GME ATTESTATION My faculty preceptor for this patient encounter was physically present during the encounter and was fully available. All aspects of the patient interview, examination, medical decision making process, and medical care plan development were reviewed and approved by the faculty preceptor. The faculty preceptor is aware and concurs with the plan as stated in the body of this note and will attest to such by his/her cosignature. ATTENDING NOTE I, Lashay Penny, have independently examined this patient and performed my own p hysical exam, as well as reviewed the documentation and edited where necessary. I have discussed in detail with the resident / student the findings and plan of treatment as documented by the resident / student and edited their note. I agree with their findings and treatment plan and have edited their documentation. I will continue to follow the patient during this hospital stay. ISABEL MAURICIO DO May 10, 2019 11:44 LASHAY PENNY MD May 10, 2019 16:26
--- NOTE | 2019-05-10 13:42 | PMRDS ---
DATE OF ADMISSION: 04/27/2019 DATE OF DISCHARGE: 05/10/2019 CHIEF COMPLAINT/DISCHARGE DIAGNOSIS: Left hip fracture. HISTORY OF PRESENT ILLNESS: 63-year-old female with a past medical history, hypertension, diabetes, allergic rhinitis, turrets who fell at home onto her left side after slipping in the mud and presented to the [facility] emergency department on 04/25/2019 with difficulty walking. The hip x-ray showed a left intertrochanteric fracture. Chest x-ray did not reveal rib fractures. However, it did show "enlarging nodular in the right lower lobe". She was evaluated by orthopedics, was cleared by medicine and underwent a left hip open reduction internal fixation (ORIF) without complications on 04/26/2019 and made weightbearing as tolerated. She had episodes of wheezing and shortness of breath following surgery with a drop of hemoglobin from 13.8-10.2 and required supplemental oxygen, which she reports she does not use at home. She was seen by therapy who found her to be well below her prior level of function for mobility in activities of daily living (ADL) management and deemed medically appropriate for discharge to acute rehabilitation unit (ARU) on 04/27/2019. On initial eval, the patient reports her left ankle is sore after the fall and she is having left-sided rib cage pain as well. PAST MEDICAL HISTORY: As per history of present illness (HPI). HOSPITAL COURSE: The patient was admitted and enrolled in a comprehensive physical therapy (PT), occupational therapy (OT) program. She received 24-hour nursing supervision and weekly team meetings were held to discuss her progress. The patient was started on continuous DuoNebs in addition to her supplemental oxygen for wheezes noted on exam and her oxygen levels remained stable and she was weaned off of oxygen. She continued to complain of left-sided rib cage pain and despite the previous images being negative for rib cage fracture, repeat x-ray was ordered on 05/02/2019 showing a possible nondisplaced left 6th rib fracture. She was treated with Lidoderm patch and abdominal binder for comfort. The patient's left ankle pain was thought to be due to dependent edema in the setting of a left hip fracture and was treated with mental salicylate rubs and KARINA wrapping. The patient complained of burning, sharp pain in her left leg and her gabapentin dose was increased with 300 to 400 mg three times a day. The patient also had increased frequency in urination and was treated with a one-time dose fosfomycin for a positive urinalysis (UA) a urine culture was positive for E-coli. The patient's urinary symptoms resolved following the dose fosfomycin. The patient was provided with room privileges, made gains in therapy and was deemed medically and functionally stable to return home. DISCHARGE MEDICATIONS: As per instructions. FUNCTIONAL HISTORY: On discharge the patient was modified independent for all functional transfers, able to ambulate, modified independent with a rolling walker 50 feet and negotiate stairs at contact guard level. In occupational therapy, the patient was modified independent for all transfers upper and lower body dressing. Thank you for this referral.
== END 2019-05-10 12:55 | disposition home or self-care (01) | DRG 560 ==
LOC: M PM&R 16:07
PROVIDERS: ADMIT Physical Medicine & Rehabilitation; ATTEND Physical Medicine & Rehabilitation
DX: S72.142D Displaced intertrochanteric fracture of left femur, subsequent encounter for closed fracture with routine healing (principal); Z68.41 Body mass index [BMI] 40.0-44.9, adult; N39.0 Urinary tract infection, site not specified; F95.2 Tourette's disorder; I10 Essential (primary) hypertension; E11.40 Type 2 diabetes mellitus with diabetic neuropathy, unspecified; J30.9 Allergic rhinitis, unspecified; W18.09XD Striking against other object with subsequent fall, subsequent encounter; M54.5 Low back pain; B96.20 Unspecified Escherichia coli [E. coli] as the cause of diseases classified elsewhere; E78.5 Hyperlipidemia, unspecified; Y92.009 Unspecified place in unspecified non-institutional (private) residence as the place of occurrence of the external cause; E66.01 Morbid (severe) obesity due to excess calories; R91.1 Solitary pulmonary nodule; R07.81 Pleurodynia; Z79.82 Long term (current) use of aspirin; Z79.84 Long term (current) use of oral hypoglycemic drugs; Z79.899 Other long term (current) drug therapy; Z88.2 Allergy status to sulfonamides; Z90.49 Acquired absence of other specified parts of digestive tract; M25.572 Pain in left ankle and joints of left foot

== ENCOUNTER → 2019-06-01 | Outpatient (RCR) | payer MEDICARE, MEDICAID ==
[~2019-06-01] MED LIST changes: +ASPI81CH8 PO; +BACL10TA2 PO; +ENAL10TA2 PO; +HYDR25TAB PO; +OMEP-218 PO; +OXYC-517 PO; +XARE10TA PO
== END ==
LOC: M PT 05-20 11:52
PROVIDERS: ATTEND Nurse Practitioner Family
DX: S72.92XD Unspecified fracture of left femur, subsequent encounter for closed fracture with routine healing (principal); X58.XXXD Exposure to other specified factors, subsequent encounter; Y92.9 Unspecified place or not applicable; Y93.9 Activity, unspecified; Y99.9 Unspecified external cause status

== ENCOUNTER → 2019-06-15 | Outpatient (CLI) | payer MEDICARE, MEDICAID ==
[~2019-06-15] MED LIST changes: -GLIM4TAB3 PO; +GLIM4TAB5 PO
[2019-06-15 10:38] LABS: BASO % 0.6 % (0.0-1.0); EOS # 0.2 10^3/uL (0.0-0.5); EOS % 2.9 % (0.0-3.0); HEMATOCRIT 39.2 % (36.0-47.0); HEMOGLOBIN 11.6 g/dl (12.0-15.5); LYMPH # 1.7 10^3/uL (1.5-5.0); LYMPH % 24.8 % (24.0-44.0); MEAN CORPUSCULAR HEMOGLOBIN 26.1 pg (27.0-33.0); MEAN CORPUSCULAR HGB CONC 29.6 g/dl (32.0-36.5); MEAN CORPUSCULAR VOLUME 88.3 fl (80.0-96.0); MONO # 0.6 10^3/uL (0.0-0.8); MONO % 9.1 % (0.0-5.0); NEUTROPHILS # 4.2 10^3/uL (1.5-8.5); NEUTROPHILS % 62.2 % (36.0-66.0); PLATELET COUNT, AUTOMATED 351 10^3/uL (150-450); RED BLOOD COUNT 4.44 10^6/uL (4.00-5.40); WHITE BLOOD COUNT 6.8 10^3/uL (4.0-10.0)
[2019-06-15 11:18] LABS: ALBUMIN 3.7 GM/DL (3.2-5.2); ALT/SGPT 17 U/L (12-78); BILIRUBIN,TOTAL 0.5 MG/DL (0.2-1.0); BLOOD UREA NITROGEN 18 MG/DL (7-18); CARBON DIOXIDE LEVEL 29 MEQ/L (21-32); CHLORIDE LEVEL 102 MEQ/L (98-107); CHOLESTEROL LEVEL 124 MG/DL (<200); CHOLESTEROL RISK RATIO 2.638 (<5); FREE T4 0.89 NG/DL (0.76-1.46); GLOMERULAR FILTRATION RATE > 60.0 (>45); GLUCOSE, FASTING 98 MG/DL (70-100); HDL CHOLESTEROL 47 MG/DL (>40); LDL CHOLESTEROL 24 MG/DL (<100); NON-HDL-C 77 MG/DL; POTASSIUM SERUM 4.3 MEQ/L (3.5-5.1); SODIUM LEVEL 140 MEQ/L (136-145); TOTAL PROTEIN 7.5 GM/DL (6.4-8.2); TRIGLYCERIDES LEVEL 267 MG/DL (<150)
[2019-06-15 14:04] LABS: HEMOGLOBIN A1c 6.3 %
== END ==
LOC: M LAB 09:45
PROVIDERS: ATTEND Nurse Practitioner Family
DX: I10 Essential (primary) hypertension (principal); E78.5 Hyperlipidemia, unspecified; E11.9 Type 2 diabetes mellitus without complications

== ENCOUNTER 2019-06-29 09:50 | Outpatient (RCR) | payer MEDICARE, MEDICAID | END 2019-07-02 | LOC: M PT 09:50 | PROVIDERS: ATTEND Nurse Practitioner Family | DX: S72.90XD Unspecified fracture of unspecified femur, subsequent encounter for closed fracture with routine healing (principal); X58.XXXD Exposure to other specified factors, subsequent encounter; Y92.9 Unspecified place or not applicable ==

== ENCOUNTER 2019-07-30 09:00 | Outpatient (RCR) | payer MEDICARE, MEDICAID | END 2019-07-31 | LOC: M PT 09:00 | PROVIDERS: ATTEND Nurse Practitioner Family | DX: S72.90XD Unspecified fracture of unspecified femur, subsequent encounter for closed fracture with routine healing (principal); X58.XXXD Exposure to other specified factors, subsequent encounter; Y92.9 Unspecified place or not applicable; Y93.9 Activity, unspecified; Y99.9 Unspecified external cause status ==

== ENCOUNTER 2019-08-12 09:46 | Outpatient (RCR) | payer MEDICARE, MEDICAID | END 2019-08-31 | LOC: M PT 09:46 | PROVIDERS: ATTEND Nurse Practitioner Family | DX: S72.142D Displaced intertrochanteric fracture of left femur, subsequent encounter for closed fracture with routine healing (principal); W18.30XD Fall on same level, unspecified, subsequent encounter; Y92.9 Unspecified place or not applicable ==

== ENCOUNTER → 2019-11-18 | Outpatient (CLI) | payer MEDICARE, MEDICAID ==
[~2019-11-18] MED LIST changes: +AMLO1TAB24 PO; -AMLO5TAB6 PO; +ENAL-36 PO; -ENAL10TA2 PO; -ENAL20TA PO; +ENAL20TA11 PO; +GABA-282 PO; -GABA-843 PO; +HYDR-3490 PO; -HYDR25TAB PO; +OXYC-1 PO; -OXYC15TA76 PO
--- NOTE | 2019-11-25 12:55 | SLEEPCENT ---
DATE OF PROCEDURE: 11/18/2019 ORDERED BY: Dr. Yarbrough Nocturnal polysomnography was performed for evaluation of sleep physiology in this patient with a history of excessive somnolence and nonrestorative sleep. 9 hours and 14 minutes of data were reviewed. There were 475.5 minutes of sleep identified. Sleep latency was short at 6.5 minutes. Rapid eye movement (REM) latency was normal at 85 minutes. Sleep architecture was fairly well-preserved. There were 4 REM cycles noted. Overall sleep efficiency was 87.1%. The patient's electrocardiogram showed sinus rhythm with an average heart rate of 70 beats per minute. Electroencephalogram (EEG) showed fairly normal waveforms for awake and sleep. There were 117 respiratory events identified of 10 seconds in duration or greater for a respiratory event for an apnea-hypopnea index of 14.8. The events were primarily obstructive not exclusive to sleep stage nor body posture. Arousals from respiratory events occurred 3.5 times per hour and oxygen desaturations were seen into the low 80s. There was minimal limb activity and remaining measures of sleep physiology were normal. IMPRESSION: Obstructive sleep apnea syndrome (G47.33). Apnea-hypopnea index 14.8. RECOMMENDATIONS: The patient should be encouraged to return to sleep disorder center for pressure therapy. In the interim, alcohol and sedative avoidance should be practiced and caution exercised during operation of motor vehicles.
== END ==
LOC: M SLEEP 20:00
PROVIDERS: ATTEND Internal Medicine Pulmonary Disease
DX: G47.33 Obstructive sleep apnea (adult) (pediatric) (principal)

== ENCOUNTER → 2019-11-29 | Outpatient (CLI) | payer MEDICARE, MEDICAID ==
[~2019-11-29] MED LIST changes: -AMLO1TAB24 PO; +AMLO5TAB6 PO; -ENAL-36 PO; +ENAL10TA2 PO; +ENAL20TA PO; -ENAL20TA11 PO; -GABA-282 PO; +GABA-843 PO; -HYDR-3490 PO; +HYDR25TAB PO
--- NOTE | 2019-11-29 12:46 | REP ---
LEFT RIB SERIES: FIVE VIEWS INCLUDING PA CHEST. HISTORY: Muscle strain and left-sided rib pain. COMPARISON STUDY: April 30, 2019 FINDINGS: PA chest radiograph shows no evidence of pneumothorax or hydrothorax. Mediastinum is not traumatically widened. The thoracic aorta is somewhat ectatic and tortuous but is felt to be unchanged from the April 25, 2019 prior study. There are granulomatous lymph node residuals in the subcarinal and right hilar region. No infiltrate is seen. Multiple views of the left rib cage demonstrate old healed rib fractures involving the left 5th and 6th anterolateral ribs. There is subtle irregularity of the lateral or posterolateral 10th rib. This should be correlated with area of tenderness and pain. I cannot exclude a recent fracture. IMPRESSION: Cortical irregularity on oblique radiograph at the posterolateral 10th rib on the left, question recent fracture. Old-appearing left 5th and 6th rib fractures. No pneumothorax, atelectasis, or hydrothorax. Calcific granulomatous residuals. Electronically Signed by Edgar Neff MD 11/29/2019 12:46 P
== END ==
LOC: M WUC 09:21
PROVIDERS: ATTEND Physician Assistant
DX: S29.011A Strain of muscle and tendon of front wall of thorax, initial encounter (principal); Z87.81 Personal history of (healed) traumatic fracture; X58.XXXA Exposure to other specified factors, initial encounter; Y92.9 Unspecified place or not applicable; Y99.9 Unspecified external cause status; Y93.9 Activity, unspecified

== ENCOUNTER → 2020-01-03 | Outpatient (CLI) | payer MEDICARE, MEDICAID ==
[~2020-01-03] MED LIST changes: +AMLO1TAB24 PO; -AMLO5TAB6 PO; +ENAL-36 PO; -ENAL10TA2 PO; -ENAL20TA PO; +ENAL20TA11 PO
--- NOTE | 2020-02-14 08:01 | SLEEPCENT ---
DATE: 01/03/2020 ORDERED BY: Dr. Yarbrough Nocturnal polysomnography was performed for the titration of pressure therapy in this patient with obstructive sleep apnea syndrome, apnea-hypopnea index of 14.8. For testing, ResMed AirFit F20 nasal mask of medium size was used, 4 cm of water pressure was applied to the circuit, and the lights were extinguished. There was 7 hours and 12 minutes of data reviewed. There was 365 minutes of sleep identified. Sleep latency was normal at 8.5 minutes. REM latency was normal at 83 minutes. Sleep architecture was good with 3 REM cycles noted. Overall sleep efficiency was 85.8%. The patients electrocardiogram showed a sinus rhythm with an average heart rate of 68 beats per minute. EEG showed normal waveforms for wake and sleep. Respiratory events were fully palliated with CPAP at a pressure of +5. Limb activity was appreciated during the study. The limb movement arousal index was 4.3. IMPRESSION: Obstructive sleep apnea syndrome (G47.33) RECOMMENDATIONS: Nightly use of pressure therapy 5 cm of water. /htsru edited: 03/29/2020 1055 tkf cc: Zulema Anaya NP MTDRosalinda
== END ==
LOC: M SLEEP 20:00
PROVIDERS: ATTEND Internal Medicine Pulmonary Disease
DX: G47.33 Obstructive sleep apnea (adult) (pediatric) (principal)

== ENCOUNTER → 2020-02-10 | Outpatient (REF) | payer MEDICARE, MEDICAID ==
[2020-02-10 16:17] LABS: HEMATOCRIT 39.6 % (36.0-47.0); HEMOGLOBIN 12.1 g/dl (12.0-15.5); MEAN CORPUSCULAR HEMOGLOBIN 26.5 pg (27.0-33.0); MEAN CORPUSCULAR HGB CONC 30.6 g/dl (32.0-36.5); MEAN CORPUSCULAR VOLUME 86.8 fl (80.0-96.0); PLATELET COUNT, AUTOMATED 298 10^3/uL (150-450); RED BLOOD COUNT 4.56 10^6/uL (4.00-5.40); WHITE BLOOD COUNT 7.4 10^3/uL (4.0-10.0)
[2020-02-10 16:28] LABS: ALBUMIN 3.6 GM/DL (3.2-5.2); ALT/SGPT 25 U/L (12-78); BILIRUBIN,TOTAL 0.7 MG/DL (0.2-1.0); BLOOD UREA NITROGEN 15 MG/DL (7-18); CALCIUM LEVEL 9.4 MG/DL (8.8-10.2); CARBON DIOXIDE LEVEL 32 MEQ/L (21-32); CHLORIDE LEVEL 103 MEQ/L (98-107); CHOLESTEROL LEVEL 132 MG/DL (<200); CHOLESTEROL RISK RATIO 2.444 (<5); CREATININE FOR GFR 0.83 MG/DL (0.55-1.30); FREE T4 1.05 NG/DL (0.76-1.46); GLOMERULAR FILTRATION RATE > 60.0 (>45); GLUCOSE, FASTING 94 MG/DL (70-100); HDL CHOLESTEROL 54 MG/DL (>40); LDL CHOLESTEROL 48 MG/DL (<100); NON-HDL-C 78 MG/DL; POTASSIUM SERUM 4.5 MEQ/L (3.5-5.1); SODIUM LEVEL 139 MEQ/L (136-145); TOTAL PROTEIN 7.2 GM/DL (6.4-8.2); TRIGLYCERIDES LEVEL 149 MG/DL (<150)
[2020-02-10 17:49] LABS: HEMOGLOBIN A1c 6.5 %
== END ==
LOC: M PLALAB 13:43
PROVIDERS: ATTEND Nurse Practitioner Family
DX: E78.5 Hyperlipidemia, unspecified (principal); E11.9 Type 2 diabetes mellitus without complications; I10 Essential (primary) hypertension

== ENCOUNTER → 2020-02-23 | Outpatient (CLI) | payer OTHER ==
--- NOTE | 2020-02-23 10:39 | REPMRS ---
Patient History The patient states she has not had a clinical breast exam in over a year. Patient is postmenopausal, has history of skin cancer at age 63, and is nulliparous. No known family history of cancer. 3D TOMOSYNTHESIS WAS PERFORMED. [facility] for [facility] 8.1%. VOLPARA DENSITY B. Digital Woman Screen Mammo: February 23, 2020 - Exam #: [id number] Bilateral CC and MLO view(s) were taken. Technologist: Joslyn Ambrocio Technologist Prior study comparison: September 15, 2018, bilateral digital woman screen mammo performed at [facility]. August 28, 2017, digital woman screen mammo performed at [facility]. FINDINGS: There are scattered fibroglandular densities. There has been no change in the appearance of the mammogram from the prior studies. There is a mild amount of residual fibroglandular tissue which is fairly symmetric. There is no interval development of dominant mass, architectural distortion, or clustered microcalcification suggestive of malignancy. Assessment: BI-RADS/ACR category 1 mammogram. Negative Mammogram. Recommendation Routine screening mammogram in 1 year (for women over age 40). This mammogram was interpreted with the aid of an FDA-approved computer-aided dectection system. Electronically Signed By: Cyrus Urena MD 02/23/20 1038
--- NOTE | 2020-02-28 15:22 | DEXA ---
AP SPINE L1 -L3 1.084 -0.8 0.7 LT FEMUR TOTAL LT NECK RT FEMUR TOTAL 0.868 -1.1 0.0 RT NECK 0.822 -1.6 -0.1 TOTAL BODY TOTAL OTHER COMMENTS: Normal bone densitometry of the spine. There is low bone density of the right hip. The density of the spine is increased 0.4% since the initial exam on 06/13/2009. The increased 0.9% since the most recent exam on 08/11/2015. The density of the right hip has decreased 22.9% since the initial exam on 06/13/2009. The density of the right hip has decreased 13.8% since the most recent exam on 08/11/2015. FOLLOW-UP: Recommendation for the next bone density exam: 2 years. ELYSIA
== END ==
LOC: M WHC 08:33
PROVIDERS: ATTEND Nurse Practitioner Family
DX: Z12.31 Encounter for screening mammogram for malignant neoplasm of breast (principal); Z13.820 Encounter for screening for osteoporosis; Z78.0 Asymptomatic menopausal state; Z85.828 Personal history of other malignant neoplasm of skin; M85.851 Other specified disorders of bone density and structure, right thigh

== ENCOUNTER → 2020-03-07 | Outpatient (CLI) | payer OTHER ==
--- NOTE | 2020-03-14 08:22 | REP ---
RIGHT FEMUR HISTORY: Pain. TECHNIQUE: AP and lateral views of the right femur are performed. FINDINGS: There is no acute fracture, dislocation, or intrinsic bone disease. Very mild degenerative changes are seen at the hip joint and the knee joint. I see no other significant finding except for mild vascular calcifications in the thigh. IMPRESSION: Mild degenerative changes. No abnormalities are seen of the femur. MTDD
--- NOTE | 2020-03-14 08:23 | REP ---
LUMBOSACRAL SPINE SERIES: 03/07/20 HISTORY: Low back pain. Five views lumbosacral spine performed. The lumbar vertebral bodies are normal in height and well aligned. There has been prior fusion surgery in 2013 with posterior rods and pedicle screws fusing the L4 through S1 levels. There is mild compression of the T12 vertebral body at the superior endplate. This is of indeterminate age and acuity is uncertain. There is mild diffuse spurring. There is mild disc space narrowing and subchondral sclerosis at all levels. The posterior elements are intact. There appears to have been laminectomy however at L4 and L5. IMPRESSION: Mild diffuse degenerative change. Post-surgical changes with fusion posteriorly at L4 through S1. There is mild depression of the superior endplate of T12, of indeterminate age and acuity is uncertain. Clinical correlation suggested. MTDD
== END ==
LOC: M WUC 13:55
PROVIDERS: ATTEND Nurse Practitioner Family
DX: M54.5 Low back pain (principal); M79.604 Pain in right leg

== ENCOUNTER → 2020-04-10 | Outpatient (CLI) | payer OTHER, MEDICAID ==
--- NOTE | 2020-04-11 05:47 | ECGEPIP ---
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
== END ==
LOC: M EKG 11:24
PROVIDERS: ATTEND Orthopaedic Surgery
DX: Z01.810 Encounter for preprocedural cardiovascular examination (principal)

== ENCOUNTER → 2020-04-11 | Outpatient (REF) | payer MEDICARE, MEDICAID, OTHER ==
[2020-04-11 18:19] LABS: APPEARANCE, URINE HAZY (CLEAR); BACTERIA, URINE AUTO NEGATIVE (NEGATIVE); BILIRUBIN, URINE AUTO NEGATIVE (NEGATIVE); BLOOD, URINE BLOOD NEGATIVE (NEGATIVE); COLOR, URINE YELLOW (YELLOW); GLUCOSE, URINE (UA) AUTO NEGATIVE (NEGATIVE); KETONE, URINE AUTO NEGATIVE (NEGATIVE); LEUKOCYTE ESTERASE, URINE AUTO NEGATIVE (NEGATIVE); NITRITE, URINE AUTO NEGATIVE (NEGATIVE); PROTEIN, URINE AUTO NEGATIVE (NEGATIVE); RBC, URINE AUTO 1 /HPF (0-3); SPECIFIC GRAVITY URINE AUTO 1.017 (1.002-1.035); SQUAMOUS EPITHELIAL CELL UR AU 6 /HPF (0-6); WBC, URINE AUTO 2 /HPF (0-3)
== END ==
LOC: M SFHCPLAZ 17:07
PROVIDERS: ATTEND Nurse Practitioner Family
DX: N39.0 Urinary tract infection, site not specified (principal)
CPT/HCPCS: 81001; 81002; 87086; G0463

== ENCOUNTER → 2020-04-14 | Outpatient (CLI) | payer OTHER, MEDICAID | LOC: M LABSMTC 09:50 | PROVIDERS: ATTEND Orthopaedic Surgery | DX: Z01.812 Encounter for preprocedural laboratory examination (principal); Z20.828 Contact with and (suspected) exposure to other viral communicable diseases ==

== ENCOUNTER → 2020-05-04 | Outpatient (CLI) | payer OTHER, MEDICAID | LOC: M LABSMTC 13:18 | PROVIDERS: ATTEND Orthopaedic Surgery | DX: Z11.59 Encounter for screening for other viral diseases (principal) ==

== ENCOUNTER → 2020-05-05 | Outpatient (CLI) | payer OTHER, MEDICAID ==
--- NOTE | 2020-05-09 13:22 | SLEEPCENT ---
DATE OF SERVICE: 05/05/2020 ORDERED BY: Dr. Yarbrough Nocturnal polysomnography was performed for evaluation of sleep physiology in this patient with a prior history of obstructive sleep apnea. There was 7 hours and 39 minutes of data reviewed. There was 332.5 minutes of sleep identified. Sleep latency was normal at 9.5 minutes. REM sleep was delayed at 201 minutes. Sleep architecture showed poor progression with only one REM cycle, and there was a period of wake between 2 and 3 a.m., resulting in a reduced sleep efficiency of 74.1%. The EKG showed a sinus rhythm with an average heart rate of 62 beats per minute. EEG showed normal waveforms for wake and sleep. There were 36 respiratory events identified of 10 seconds in duration or greater for an apnea-hypopnea index of 6.5. The events were primarily obstructive, not exclusive to sleep stage, more frequent but not exclusive to the supine posture. Arousals from respiratory events occurred 5.4 times per hour when arousals from snoring were included, and oxygen desaturations below 90% were seen. There was some activity in the limb activity EMG leads occasionally, and snoring was noted throughout the study. IMPRESSION: Obstructive sleep apnea syndrome (G47.33). Apnea-hypopnea index 6.5. RECOMMENDATION: The patient should be encouraged to return to the sleep disorder center for pressure therapy. In the interim, alcohol and sedative avoidance should be practiced and caution exercised during the operation of motor vehicles.
== END ==
LOC: M SLEEP 20:00
PROVIDERS: ATTEND Internal Medicine Pulmonary Disease
DX: G47.33 Obstructive sleep apnea (adult) (pediatric) (principal)

== ENCOUNTER → 2020-06-07 | Outpatient (CLI) | payer OTHER, MEDICAID ==
--- NOTE | 2020-06-07 15:24 | REP ---
INDICATION: HX LUMBAR FUSION, T12 COMPRESSION FX. Request imaging to include T10. COMPARISON: Comparison MRI study of the lumbar spine is from August 20, 2018. Comparison lumbar spine radiographs are from March 07, 2020. There is a comparison MRI study from August 20, there is a comparison MRI study from April 19, 2013 as well.. TECHNIQUE: Sagittal and axial T1 and T2-weighted scans are acquired in the usual fashion with and without fat saturation. Sequences include spin echo, turbo spin-echo, and STIR imaging sequences. FINDINGS: Today's study demonstrates mild anterior wedging at the T12 vertebral body with approximately 10% loss of anterior vertebral body height. This is new when compared to the 2018 prior study but unchanged when compared with the March 07, 2020 exam. T1 and T2 weighted signal intensity is normal in the T12 vertebral body consistent with a healed compression deformity. There is minimal disc bulging at T11-12. No thecal sac compression. No distal thoracic cord compression is seen. The conus medullaris tip is normal in position and appearance at L1 unchanged. Axial and sagittal images at the L1-2 disc demonstrate minimal disc bulging. No focal disc protrusion is seen. No central canal stenosis is seen. The L2-3 disc level is unremarkable. The patient is status post transpedicle screw dorsal spine fixation L4-L5 and S1 bilaterally. A stable L5-S1 spondylolisthesis is present measuring 10 mm. Laminectomy is been performed at L5 and S1. There is been progressive degenerative disc disease at L3-4. There is a broad-based focal disc protrusion at L3-4 producing increased compression of the thecal sac when compared with the prior study. Moderate central canal stenosis is seen at L3-4 due to disc bulging, the disc protrusion, ligamentum flavum and facet hypertrophy. There is magnetic field susceptibility artifact but there does not appear to be neural foraminal narrowing. No change at the 4 5 and 5 1 level since the prior study. IMPRESSION: Progressive degenerative disc disease at L3-4 with broad-based focal disc protrusion at L3-4 on today's study producing increased thecal sac compression and moderate central canal stenosis. There is also interval but healed wedge compression deformity at T12 with 10% loss of anterior vertebral body height. <Electronically signed by Manny Neff > 06/07/20 [id number]
== END ==
LOC: M RAD 06:36
PROVIDERS: ATTEND Physician Assistant Surgical
DX: M51.36 Other intervertebral disc degeneration, lumbar region (principal); S22.080D Wedge compression fracture of T11-T12 vertebra, subsequent encounter for fracture with routine healing; X58.XXXD Exposure to other specified factors, subsequent encounter; Z98.1 Arthrodesis status

== ENCOUNTER → 2020-06-23 | Outpatient (REF) | payer OTHER, MEDICAID ==
[~2020-06-23] MED LIST changes: +GABA-282 PO; -GABA-843 PO; +HYDR-3490 PO; -HYDR25TAB PO
[2020-06-23 17:45] LABS: BASO # 0.1 10^3/uL (0.0-0.2); BASO % 0.7 % (0.0-1.0); EOS # 0.1 10^3/uL (0.0-0.5); EOS % 1.9 % (0.0-3.0); HEMATOCRIT 39.1 % (36.0-47.0); HEMOGLOBIN 12.1 g/dl (12.0-15.5); LYMPH # 2.3 10^3/uL (1.5-5.0); LYMPH % 29.8 % (24.0-44.0); MEAN CORPUSCULAR HEMOGLOBIN 26.2 pg (27.0-33.0); MEAN CORPUSCULAR HGB CONC 30.9 g/dl (32.0-36.5); MEAN CORPUSCULAR VOLUME 84.8 fl (80.0-96.0); MONO # 0.9 10^3/uL (0.0-0.8); MONO % 11.8 % (0.0-5.0); NEUTROPHILS # 4.2 10^3/uL (1.5-8.5); NEUTROPHILS % 55.5 % (36.0-66.0); PLATELET COUNT, AUTOMATED 339 10^3/uL (150-450); RED BLOOD COUNT 4.61 10^6/uL (4.00-5.40); WHITE BLOOD COUNT 7.6 10^3/uL (4.0-10.0)
[2020-06-23 18:04] LABS: HEMOGLOBIN A1c 6.6 %
[2020-06-23 18:10] LABS: ALBUMIN 3.8 GM/DL (3.2-5.2); ALT/SGPT 38 U/L (12-78); BILIRUBIN,TOTAL 0.4 MG/DL (0.2-1.0); BLOOD UREA NITROGEN 17 MG/DL (7-18); CALCIUM LEVEL 9.3 MG/DL (8.8-10.2); CARBON DIOXIDE LEVEL 30 MEQ/L (21-32); CHLORIDE LEVEL 104 MEQ/L (98-107); CHOLESTEROL LEVEL 133 MG/DL (<200); CHOLESTEROL RISK RATIO 2.418 (<5); CREATININE FOR GFR 0.84 MG/DL (0.55-1.30); GLOMERULAR FILTRATION RATE > 60.0 (>45); GLUCOSE, FASTING 73 MG/DL (70-100); HDL CHOLESTEROL 55 MG/DL (>40); LDL CHOLESTEROL 38 MG/DL (<100); MAGNESIUM LEVEL 2.1 MG/DL (1.8-2.4); NON-HDL-C 78 MG/DL; POTASSIUM SERUM 4.1 MEQ/L (3.5-5.1); SODIUM LEVEL 141 MEQ/L (136-145); TOTAL PROTEIN 7.4 GM/DL (6.4-8.2); TRIGLYCERIDES LEVEL 200 MG/DL (<150)
== END ==
LOC: M SFHCPLAZ 14:51
PROVIDERS: ATTEND Nurse Practitioner Family
DX: E78.5 Hyperlipidemia, unspecified (principal); I10 Essential (primary) hypertension; E11.9 Type 2 diabetes mellitus without complications
CPT/HCPCS: 36415; 80053; 80061; 83036; 83735; 85025; G0463

== ENCOUNTER 2020-07-28 11:00 | Outpatient (RCR) | payer OTHER, MEDICAID | END 2020-07-30 | disposition home or self-care (01) | LOC: M PT 11:00 | PROVIDERS: ATTEND Physician Assistant Surgical | DX: M54.16 Radiculopathy, lumbar region (principal) ==

== ENCOUNTER 2020-08-18 11:31 | Outpatient (RCR) | payer OTHER, MEDICAID | END 2020-08-30 | LOC: M PT 11:31 | PROVIDERS: ATTEND Physician Assistant Surgical | DX: M51.16 Intervertebral disc disorders with radiculopathy, lumbar region (principal); Z98.1 Arthrodesis status ==

== ENCOUNTER → 2020-10-23 | Outpatient (REF) | payer OTHER, MEDICAID ==
[~2020-10-23] MED LIST changes: -ACET-908 PO; +ACET-910 PO; +GABA-283 PO; -GABA-845 PO
[2020-10-23 13:19] LABS: BASO % 0.3 % (0.0-1.0); EOS # 0.2 10^3/uL (0.0-0.5); EOS % 2.8 % (0.0-3.0); HEMATOCRIT 39.1 % (36.0-47.0); HEMOGLOBIN 11.7 g/dl (12.0-15.5); LYMPH # 1.1 10^3/uL (1.5-5.0); LYMPH % 18.5 % (24.0-44.0); MEAN CORPUSCULAR HEMOGLOBIN 25.7 pg (27.0-33.0); MEAN CORPUSCULAR HGB CONC 29.9 g/dl (32.0-36.5); MEAN CORPUSCULAR VOLUME 85.7 fl (80.0-96.0); MONO # 0.6 10^3/uL (0.0-0.8); MONO % 9.6 % (2.0-8.0); NEUTROPHILS # 4.2 10^3/uL (1.5-8.5); NEUTROPHILS % 68.3 % (36.0-66.0); PLATELET COUNT, AUTOMATED 272 10^3/uL (150-450); RED BLOOD COUNT 4.56 10^6/uL (4.00-5.40); WHITE BLOOD COUNT 6.1 10^3/uL (4.0-10.0)
[2020-10-23 13:29] LABS: INR 0.91; PROTHROMBIN TIME 12.4 SECONDS (12.5-14.3)
[2020-10-23 13:30] LABS: PARTIAL THROMBOPLASTIN TIME 28.9 SECONDS (24.2-38.5)
[2020-10-23 13:53] LABS: ALBUMIN 3.5 GM/DL (3.2-5.2); ALT/SGPT 29 U/L (12-78); BILIRUBIN,TOTAL 0.4 MG/DL (0.2-1.0); BLOOD UREA NITROGEN 12 MG/DL (7-18); CALCIUM LEVEL 8.9 MG/DL (8.8-10.2); CARBON DIOXIDE LEVEL 31 MEQ/L (21-32); CHLORIDE LEVEL 106 MEQ/L (98-107); CREATININE FOR GFR 0.72 MG/DL (0.55-1.30); FERRITIN 7 NG/ML (8-252); GLOMERULAR FILTRATION RATE > 60.0 (>45); GLUCOSE, FASTING 130 MG/DL (70-100); NT-PRO BNP 54 PG/ML (<125); POTASSIUM SERUM 4.3 MEQ/L (3.5-5.1); SODIUM LEVEL 140 MEQ/L (136-145); TOTAL PROTEIN 6.9 GM/DL (6.4-8.2)
== END ==
LOC: M SFHCPLAZ 11:07
PROVIDERS: ATTEND Family Medicine
DX: I10 Essential (primary) hypertension (principal); D50.9 Iron deficiency anemia, unspecified
CPT/HCPCS: 36415; 80053; 82728; 83880; 85025; 85610; 85730; 93005; G0463

== ENCOUNTER → 2020-12-05 | Outpatient (CLI) | payer OTHER, MEDICAID ==
[~2020-12-05] MED LIST changes: +OMEP40CA4 PO; -OMEP40CA97 PO
[2020-12-05 13:40] LABS: BASO % 0.5 % (0.0-1.0); EOS # 0.1 10^3/uL (0.0-0.5); EOS % 2.1 % (0.0-3.0); HEMATOCRIT 39.9 % (36.0-47.0); HEMOGLOBIN 12.3 g/dl (12.0-15.5); LYMPH # 1.2 10^3/uL (1.5-5.0); LYMPH % 20.4 % (24.0-44.0); MEAN CORPUSCULAR HEMOGLOBIN 26.1 pg (27.0-33.0); MEAN CORPUSCULAR HGB CONC 30.8 g/dl (32.0-36.5); MEAN CORPUSCULAR VOLUME 84.5 fl (80.0-96.0); MONO # 0.5 10^3/uL (0.0-0.8); MONO % 9.3 % (2.0-8.0); NEUTROPHILS # 3.9 10^3/uL (1.5-8.5); NEUTROPHILS % 67.4 % (36.0-66.0); PLATELET COUNT, AUTOMATED 281 10^3/uL (150-450); RED BLOOD COUNT 4.72 10^6/uL (4.00-5.40); WHITE BLOOD COUNT 5.8 10^3/uL (4.0-10.0)
[2020-12-05 14:09] LABS: ALBUMIN 3.6 GM/DL (3.2-5.2); ALT/SGPT 30 U/L (12-78); BILIRUBIN,TOTAL 0.6 MG/DL (0.2-1.0); BLOOD UREA NITROGEN 17 MG/DL (7-18); CALCIUM LEVEL 9.3 MG/DL (8.8-10.2); CARBON DIOXIDE LEVEL 29 MEQ/L (21-32); CHLORIDE LEVEL 103 MEQ/L (98-107); CHOLESTEROL LEVEL 128 MG/DL (<200); CHOLESTEROL RISK RATIO 2.098 (<5); CREATININE FOR GFR 0.92 MG/DL (0.55-1.30); FERRITIN 15 NG/ML (8-252); FREE T4 0.92 NG/DL (0.76-1.46); GLOMERULAR FILTRATION RATE > 60.0 (>45); GLUCOSE, FASTING 174 MG/DL (70-100); HDL CHOLESTEROL 61 MG/DL (>40); LDL CHOLESTEROL 41 MG/DL (<100); NON-HDL-C 67 MG/DL; POTASSIUM SERUM 3.6 MEQ/L (3.5-5.1); SODIUM LEVEL 139 MEQ/L (136-145); TOTAL PROTEIN 7.5 GM/DL (6.4-8.2); TRIGLYCERIDES LEVEL 129 MG/DL (<150)
[2020-12-05 14:16] LABS: MALB URINE SIEMENS 16.3 MG/L; MAU/CREAT RATIO 11.3 MCG/MG (0.0-30.0)
[2020-12-05 14:42] LABS: HEMOGLOBIN A1c 6.7 %
== END ==
LOC: M PLALAB 11:08
PROVIDERS: ATTEND Nurse Practitioner Family
DX: E11.9 Type 2 diabetes mellitus without complications (principal); E78.5 Hyperlipidemia, unspecified; D50.9 Iron deficiency anemia, unspecified

== ENCOUNTER → 2021-04-24 | Outpatient (CLI) | payer OTHER, MEDICAID ==
[2021-04-24 15:22] LABS: BASO % 0.4 % (0.0-1.0); EOS # 0.1 10^3/uL (0.0-0.5); EOS % 1.6 % (0.0-3.0); HEMATOCRIT 44.5 % (36.0-47.0); HEMOGLOBIN 14.1 g/dl (12.0-15.5); LYMPH # 2.2 10^3/uL (1.5-5.0); LYMPH % 27.3 % (24.0-44.0); MEAN CORPUSCULAR HEMOGLOBIN 29.1 pg (27.0-33.0); MEAN CORPUSCULAR HGB CONC 31.7 g/dl (32.0-36.5); MEAN CORPUSCULAR VOLUME 91.8 fl (80.0-96.0); MONO # 0.8 10^3/uL (0.0-0.8); MONO % 9.4 % (2.0-8.0); NEUTROPHILS % 60.9 % (36.0-66.0); PLATELET COUNT, AUTOMATED 269 10^3/uL (150-450); RED BLOOD COUNT 4.85 10^6/uL (4.00-5.40); WHITE BLOOD COUNT 8.2 10^3/uL (4.0-10.0)
[2021-04-24 15:58] LABS: CREATININE, URINE 67.4 MG/DL; MALB URINE SIEMENS 6.8 MG/L
[2021-04-24 15:59] LABS: ALBUMIN 3.8 GM/DL (3.2-5.2); ALT/SGPT 60 U/L (12-78); BILIRUBIN,TOTAL 0.8 MG/DL (0.2-1.0); BLOOD UREA NITROGEN 16 MG/DL (7-18); CALCIUM LEVEL 9.8 MG/DL (8.8-10.2); CARBON DIOXIDE LEVEL 35 MEQ/L (21-32); CHLORIDE LEVEL 99 MEQ/L (98-107); CHOLESTEROL LEVEL 156 MG/DL (<200); CHOLESTEROL RISK RATIO 2.476 (<5); CREATININE FOR GFR 0.82 MG/DL (0.55-1.30); FREE T4 1.09 NG/DL (0.76-1.46); GLOMERULAR FILTRATION RATE > 60.0 (>45); GLUCOSE, FASTING 75 MG/DL (70-100); HDL CHOLESTEROL 63 MG/DL (>40); LDL CHOLESTEROL 53 MG/DL (<100); NON-HDL-C 93 MG/DL; POTASSIUM SERUM 4.5 MEQ/L (3.5-5.1); SODIUM LEVEL 138 MEQ/L (136-145); TOTAL PROTEIN 7.9 GM/DL (6.4-8.2); TRIGLYCERIDES LEVEL 200 MG/DL (<150)
[2021-04-24 17:23] LABS: HEMOGLOBIN A1c 6.9 %
== END ==
LOC: M PLALAB 12:15
PROVIDERS: ATTEND Nurse Practitioner Family
DX: E78.5 Hyperlipidemia, unspecified (principal); E11.9 Type 2 diabetes mellitus without complications; I10 Essential (primary) hypertension

== ENCOUNTER → 2021-06-14 | Outpatient (CLI) | payer OTHER, MEDICAID | LOC: M WUC 08:34 | PROVIDERS: ATTEND Physician Assistant | DX: S39.012D Strain of muscle, fascia and tendon of lower back, subsequent encounter (principal); M51.36 Other intervertebral disc degeneration, lumbar region; M85.88 Other specified disorders of bone density and structure, other site; Z98.890 Other specified postprocedural states; X58.XXXD Exposure to other specified factors, subsequent encounter; Y92.9 Unspecified place or not applicable; Y93.9 Activity, unspecified; Y99.9 Unspecified external cause status ==

== ENCOUNTER → 2021-07-09 | Outpatient (CLI) | payer OTHER, MEDICAID ==
[~2021-07-09] MED LIST changes: +OMEP-173 PO; -OMEP-218 PO
== END ==
LOC: M WHC 12:00
PROVIDERS: ATTEND Nurse Practitioner Family
DX: Z12.31 Encounter for screening mammogram for malignant neoplasm of breast (principal)

== ENCOUNTER → 2021-07-13 | Outpatient (CLI) | payer OTHER, MEDICAID | LOC: M PLARAD 08:12 | PROVIDERS: ATTEND Physician Assistant Surgical | DX: M48.062 Spinal stenosis, lumbar region with neurogenic claudication (principal); M51.26 Other intervertebral disc displacement, lumbar region ==

== ENCOUNTER → 2021-11-26 | Outpatient (CLI) | payer OTHER, MEDICAID ==
[2021-11-26 11:00] LABS: BASO % 0.5 % (0.0-1.0); EOS # 0.3 10^3/uL (0.0-0.5); EOS % 4.4 % (0.0-3.0); HEMATOCRIT 38.8 % (36.0-47.0); LYMPH # 1.7 10^3/uL (1.5-5.0); LYMPH % 21.9 % (24.0-44.0); MEAN CORPUSCULAR HEMOGLOBIN 29.2 pg (27.0-33.0); MEAN CORPUSCULAR HGB CONC 30.9 g/dl (32.0-36.5); MEAN CORPUSCULAR VOLUME 94.4 fl (80.0-96.0); MONO # 0.7 10^3/uL (0.0-0.8); MONO % 9.3 % (2.0-8.0); NEUTROPHILS # 4.9 10^3/uL (1.5-8.5); NEUTROPHILS % 63.6 % (36.0-66.0); PLATELET COUNT, AUTOMATED 319 10^3/uL (150-450); RED BLOOD COUNT 4.11 10^6/uL (4.00-5.40); WHITE BLOOD COUNT 7.7 10^3/uL (4.0-10.0)
[2021-11-26 11:47] LABS: MALB URINE SIEMENS 8.2 MG/L; MAU/CREAT RATIO 6.5 MCG/MG (0.0-30.0)
[2021-11-26 12:01] LABS: ALBUMIN 3.4 GM/DL (3.2-5.2); ALT/SGPT 23 U/L (12-78); BILIRUBIN,TOTAL 0.7 MG/DL (0.2-1.0); BLOOD UREA NITROGEN 18 MG/DL (7-18); CALCIUM LEVEL 9.4 MG/DL (8.8-10.2); CARBON DIOXIDE LEVEL 29 MEQ/L (21-32); CHLORIDE LEVEL 103 MEQ/L (98-107); CHOLESTEROL LEVEL 129 MG/DL (<200); CHOLESTEROL RISK RATIO 2.345 (<5); CREATININE FOR GFR 0.74 MG/DL (0.55-1.30); FREE T4 0.99 NG/DL (0.76-1.46); GLOMERULAR FILTRATION RATE > 60.0 (>45); GLUCOSE, FASTING 136 MG/DL (70-100); HDL CHOLESTEROL 55 MG/DL (>40); LDL CHOLESTEROL 38 MG/DL (<100); NON-HDL-C 74 MG/DL; POTASSIUM SERUM 4.3 MEQ/L (3.5-5.1); SODIUM LEVEL 140 MEQ/L (136-145); TRIGLYCERIDES LEVEL 182 MG/DL (<150)
[2021-11-26 13:15] LABS: HEMOGLOBIN A1c 6.9 %
== END ==
LOC: M PLALAB 08:41
PROVIDERS: ATTEND Nurse Practitioner Family
DX: E11.9 Type 2 diabetes mellitus without complications (principal); I10 Essential (primary) hypertension; E78.5 Hyperlipidemia, unspecified

== ENCOUNTER → 2022-01-25 | Outpatient (CLI) | payer OTHER, MEDICAID ==
[~2022-01-25] MED LIST changes: +FISH10005 PO; -FISH7.5C PO
== END ==
LOC: M WUC 11:44
PROVIDERS: ATTEND Physician Assistant
DX: M54.50 Low back pain, unspecified (principal)

== ENCOUNTER 2022-01-28 11:18 | Outpatient (RCR) | payer OTHER, MEDICAID | END 2022-01-30 | LOC: M PT 11:18 | PROVIDERS: ATTEND Physician Assistant Surgical | DX: Z98.1 Arthrodesis status (principal) ==

== ENCOUNTER 2022-02-03 16:13 | Emergency (ER) | payer OTHER, MEDICAID ==
[~2022-02-03] VITALS: Ht 167.6 cm; Wt 107.9 kg
[2022-02-03 16:14] VITALS: BP 161/75
[2022-02-03] MEDS ORDERED: ACETAMINOPHEN 500 MG TAB PO ONE (18:20)
[2022-02-03] MEDS ORDERED: predniSONE 20 MG TAB PO ONE (19:40)
[2022-02-03] MEDS ORDERED: METH-1165 PO (19:42)
[2022-02-03] MEDS ORDERED: PRED20TA PO (19:42)
== END 2022-02-03 20:02 | disposition home or self-care (01) ==
LOC: M ED 16:13
DX: M62.830 Muscle spasm of back (principal); E66.9 Obesity, unspecified; E11.9 Type 2 diabetes mellitus without complications; I10 Essential (primary) hypertension; K21.9 Gastro-esophageal reflux disease without esophagitis; Z79.82 Long term (current) use of aspirin; Z79.899 Other long term (current) drug therapy; Z88.2 Allergy status to sulfonamides
CPT/HCPCS: 99282; J7512

== ENCOUNTER → 2022-03-13 | Outpatient (REF) | payer OTHER, MEDICAID ==
[~2022-03-13] MED LIST changes: +METH-1165 PO; +PRED20TA PO
[2022-03-13 15:09] LABS: APPEARANCE, URINE MANUAL HAZY (CLEAR)
[2022-03-13 15:10] LABS: BILIRUBIN, URINE MANUAL NEGATIVE (NEGATIVE); BLOOD URINE MANUAL NEGATIVE (NEGATIVE); COLOR, URINE MANUAL YELLOW (YELLOW); GLUCOSE, URINE (UA) MANUAL NEGATIVE (NEGATIVE); KETONE, URINE MANUAL NEGATIVE (NEGATIVE); LEUKOCYTE ESTERASE, URINE MAN TRACE (NEGATIVE); NITRITE, URINE MANUAL NEGATIVE (NEGATIVE); PROTEIN, URINE MANUAL TRACE mg/dL (NEGATIVE); SPECIFIC GRAVITY,URINE MANUAL 1.025 (1.002-1.035); UROBILINOGEN, URINE MANUAL NORMAL (NORMAL)
[2022-03-13 16:02] LABS: BACTERIA, URINE MOD AMOUNT; HYALINE CAST, URINE NONE SEEN /lpf (0-1); RBC, URINE 0-1 /hpf (0-3); SQUAMOUS EPITHELIAL CELL URINE LARGE AMOUNT /hpf (SMALL AMT)
== END ==
LOC: M SFHCPLAZ 13:00
PROVIDERS: ATTEND Nurse Practitioner Family
DX: N39.0 Urinary tract infection, site not specified (principal)

== ENCOUNTER 2022-03-18 10:21 | Emergency (ER) | payer OTHER, MEDICAID ==
[~2022-03-18] VITALS: Ht 162.6 cm; Wt 105.9 kg
[2022-03-18 13:54] LABS: BASO % 0.5 % (0.0-1.0); EOS # 0.1 10^3/uL (0.0-0.5); EOS % 1.6 % (0.0-3.0); HEMATOCRIT 43.6 % (36.0-47.0); HEMOGLOBIN 13.9 g/dl (12.0-15.5); LYMPH # 1.6 10^3/uL (1.5-5.0); LYMPH % 20.4 % (24.0-44.0); MEAN CORPUSCULAR HEMOGLOBIN 27.6 pg (27.0-33.0); MEAN CORPUSCULAR HGB CONC 31.9 g/dl (32.0-36.5); MEAN CORPUSCULAR VOLUME 86.7 fl (80.0-96.0); MONO # 0.7 10^3/uL (0.0-0.8); MONO % 8.7 % (2.0-8.0); NEUTROPHILS # 5.2 10^3/uL (1.5-8.5); NEUTROPHILS % 68.4 % (36.0-66.0); PLATELET COUNT, AUTOMATED 302 10^3/uL (150-450); RED BLOOD COUNT 5.03 10^6/uL (4.00-5.40); WHITE BLOOD COUNT 7.6 10^3/uL (4.0-10.0)
[2022-03-18] MEDS ORDERED: KETOROLAC 30 MG/ML 1ML VIAL IV ONE (14:35)
[2022-03-18 15:51] VITALS: BP 159/69
== END 2022-03-18 15:55 | disposition home or self-care (01) ==
LOC: M ED 10:21
DX: S22.080A Wedge compression fracture of T11-T12 vertebra, initial encounter for closed fracture (principal); S32.010A Wedge compression fracture of first lumbar vertebra, initial encounter for closed fracture; S32.020A Wedge compression fracture of second lumbar vertebra, initial encounter for closed fracture; M87.052 Idiopathic aseptic necrosis of left femur; M16.12 Unilateral primary osteoarthritis, left hip; K57.30 Diverticulosis of large intestine without perforation or abscess without bleeding; Z90.710 Acquired absence of both cervix and uterus; Z88.2 Allergy status to sulfonamides; Z79.82 Long term (current) use of aspirin; Z79.899 Other long term (current) drug therapy
CPT/HCPCS: 74176; 80047; 81002; 85025; 96374; 99284; J1885

== ENCOUNTER → 2022-05-08 | Outpatient (CLI) | payer OTHER, MEDICAID ==
[2022-05-08 10:40] LABS: BASO % 0.4 % (0.0-1.0); EOS # 0.2 10^3/uL (0.0-0.5); EOS % 2.2 % (0.0-3.0); HEMOGLOBIN 13.1 g/dl (12.0-15.5); LYMPH # 1.5 10^3/uL (1.5-5.0); LYMPH % 21.9 % (24.0-44.0); MEAN CORPUSCULAR VOLUME 90.7 fl (80.0-96.0); MONO # 0.6 10^3/uL (0.0-0.8); NEUTROPHILS # 4.6 10^3/uL (1.5-8.5); NEUTROPHILS % 67.2 % (36.0-66.0); PLATELET COUNT, AUTOMATED 253 10^3/uL (150-450); RED BLOOD COUNT 4.52 10^6/uL (4.00-5.40); WHITE BLOOD COUNT 6.8 10^3/uL (4.0-10.0)
[2022-05-08 10:43] LABS: APPEARANCE, URINE MANUAL HAZY (CLEAR); COLOR, URINE MANUAL YELLOW (YELLOW)
[2022-05-08 10:44] LABS: SPECIFIC GRAVITY,URINE MANUAL 1.015 (1.002-1.035)
[2022-05-08 10:46] LABS: BILIRUBIN, URINE MANUAL 2+ (NEGATIVE); GLUCOSE, URINE (UA) MANUAL NEGATIVE (NEGATIVE); KETONE, URINE MANUAL 1+ mg/dL (NEGATIVE); NITRITE, URINE MANUAL NEGATIVE (NEGATIVE); PROTEIN, URINE MANUAL TRACE mg/dL (NEGATIVE); UROBILINOGEN, URINE MANUAL 1 MG mg/dl (NORMAL)
[2022-05-08 10:47] LABS: BLOOD URINE MANUAL TRACE (NEGATIVE); LEUKOCYTE ESTERASE, URINE MAN TRACE (NEGATIVE)
[2022-05-08 10:52] LABS: BACTERIA, URINE MOD AMOUNT; HYALINE CAST, URINE NONE SEEN /lpf (0-1); RBC, URINE 0-1 /hpf (0-3); SQUAMOUS EPITHELIAL CELL URINE LARGE AMOUNT /hpf (SMALL AMT); WBC, URINE 0-1 /hpf (0-3)
[2022-05-08 11:26] LABS: ALBUMIN 3.3 G/DL (3.2-5.2); ALKALINE PHOSPHATASE 102 U/L (46-116); ALT/SGPT 26 U/L (7.0-40); AST/SGOT 20 U/L (<34); BILIRUBIN,TOTAL 0.6 MG/DL (0.3-1.2); BLOOD UREA NITROGEN 18 MG/DL (9-23); CARBON DIOXIDE LEVEL 30 MMOL/L (20-31); CHLORIDE LEVEL 103 MMOL/L (98-107); CHOLESTEROL LEVEL 126 MG/DL (<200); CHOLESTEROL RISK RATIO 1.95 (<5); CREATININE FOR GFR 0.74 MG/DL (0.55-1.30); GLOMERULAR FILTRATION RATE > 60.0 (>45); GLUCOSE, FASTING 144 MG/DL (74-106); HDL CHOLESTEROL 64.4 MG/DL (>40); LDL CHOLESTEROL 41.2 MG/DL (<100); NON-HDL-C 62 MG/DL; POTASSIUM SERUM 4.2 MMOL/L (3.5-5.1); SODIUM LEVEL 140 MMOL/L (136-145); TOTAL 25(OH) VITAMIN D 37.6 NG/ML (20.0-100.0); TOTAL PROTEIN 6.7 G/DL (5.7-8.2); TRIGLYCERIDES LEVEL 102 MG/DL (<150)
[2022-05-08 12:05] LABS: HEMOGLOBIN A1c 6.6 % (4.0-6.0)
== END ==
LOC: M LAB 09:44
PROVIDERS: ATTEND Nurse Practitioner Family
DX: E55.9 Vitamin D deficiency, unspecified (principal); E11.9 Type 2 diabetes mellitus without complications; E78.5 Hyperlipidemia, unspecified; Z79.899 Other long term (current) drug therapy

== ENCOUNTER → 2022-08-21 | Outpatient (CLI) | payer OTHER, MEDICAID ==
[~2022-08-21] MED LIST changes: -ENAL-36 PO; +ENAL1TAB50 PO
== END ==
LOC: M WHC 08:59
PROVIDERS: ATTEND Nurse Practitioner Family
DX: Z13.820 Encounter for screening for osteoporosis (principal); Z12.31 Encounter for screening mammogram for malignant neoplasm of breast

== ENCOUNTER → 2022-10-14 | Outpatient (CLI) | payer OTHER, MEDICAID ==
[~2022-10-14] MED LIST changes: +ENAL1TAB52 PO; -ENAL20TA11 PO; +ISOVUE-300 61% 100ML VIAL As Ordered ONE; +LIDOCAINE 1% MDV 20ML VIAL As Ordered ONE; +methylPREDNISolone SUSP 40MG/ML 1ML VIAL (DEPO MEDROL) As Ordered ONE
== END ==
LOC: M RAD 13:59
PROVIDERS: ATTEND Physician Assistant
DX: M16.52 Unilateral post-traumatic osteoarthritis, left hip (principal)
CPT/HCPCS: 20610; 77002; J1030; Q9967

== ENCOUNTER → 2022-11-13 | Outpatient (CLI) | payer OTHER, MEDICAID ==
[~2022-11-13] MED LIST changes: -ISOVUE-300 61% 100ML VIAL As Ordered ONE; -LIDOCAINE 1% MDV 20ML VIAL As Ordered ONE; -methylPREDNISolone SUSP 40MG/ML 1ML VIAL (DEPO MEDROL) As Ordered ONE
[2022-11-13 10:19] LABS: BASO % 0.5 % (0.0-1.0); EOS # 0.2 10^3/uL (0.0-0.5); EOS % 2.2 % (0.0-3.0); HEMATOCRIT 41.8 % (36.0-47.0); HEMOGLOBIN 13.9 g/dl (12.0-15.5); LYMPH # 1.7 10^3/uL (1.5-5.0); LYMPH % 23.3 % (24.0-44.0); MEAN CORPUSCULAR HEMOGLOBIN 29.9 pg (27.0-33.0); MEAN CORPUSCULAR HGB CONC 33.3 g/dl (32.0-36.5); MEAN CORPUSCULAR VOLUME 89.9 fl (80.0-96.0); MONO # 0.9 10^3/uL (0.0-0.8); MONO % 12.2 % (2.0-8.0); NEUTROPHILS # 4.5 10^3/uL (1.5-8.5); NEUTROPHILS % 61.5 % (36.0-66.0); PLATELET COUNT, AUTOMATED 243 10^3/uL (150-450); RED BLOOD COUNT 4.65 10^6/uL (4.00-5.40); WHITE BLOOD COUNT 7.3 10^3/uL (4.0-10.0)
[2022-11-13 10:42] LABS: HEMOGLOBIN A1c 6.8 % (4.0-6.0)
[2022-11-13 10:55] LABS: ALBUMIN 3.8 G/DL (3.2-5.2); ALKALINE PHOSPHATASE 89 U/L (46-116); ALT/SGPT 21 U/L (7.0-40); AST/SGOT 24 U/L (<34); BILIRUBIN,TOTAL 0.9 MG/DL (0.3-1.2); BLOOD UREA NITROGEN 17 MG/DL (9-23); CALCIUM LEVEL 8.7 MG/DL (8.3-10.6); CARBON DIOXIDE LEVEL 31 MMOL/L (20-31); CHLORIDE LEVEL 101 MMOL/L (98-107); CHOLESTEROL LEVEL 124 MG/DL (<200); CHOLESTEROL RISK RATIO 2.17 (<5); CREATININE FOR GFR 0.81 MG/DL (0.55-1.30); GLOMERULAR FILTRATION RATE > 60.0 (>45); GLUCOSE, FASTING 141 MG/DL (74-106); HDL CHOLESTEROL 57.1 MG/DL (>40); LDL CHOLESTEROL 42.7 MG/DL (<100); NON-HDL-C 66.9 MG/DL; SODIUM LEVEL 136 MMOL/L (136-145); TOTAL PROTEIN 6.9 G/DL (5.7-8.2); TRIGLYCERIDES LEVEL 121 MG/DL (<150)
[2022-11-13 10:57] LABS: FERRITIN 28.6 NG/ML (7.3-270.7); TOTAL 25(OH) VITAMIN D 37.6 NG/ML (20.0-100.0)
== END ==
LOC: M PLALAB 08:34
PROVIDERS: ATTEND Nurse Practitioner Family
DX: E11.9 Type 2 diabetes mellitus without complications (principal); E78.5 Hyperlipidemia, unspecified; D50.9 Iron deficiency anemia, unspecified; E55.9 Vitamin D deficiency, unspecified; Z79.899 Other long term (current) drug therapy

== ENCOUNTER 2022-12-06 07:16 | Day surgery (SDC) | payer OTHER, MEDICAID ==
[~2022-12-06] VITALS: Ht 162.6 cm; Wt 103.7 kg
[~2022-12-06 07:16] MED LIST changes: +FERR325T3 PO; +GLIM2TAB29 PO; +HALO0.5H PO; +HYDR-4517 PO; +NORT10CA2 PO; +NS 1,000 ML IV ONE
[2022-12-06] MEDS ORDERED: propofoL 200 MG/20 ML VIAL As Ordered ONE ×3 (08:56→09:20)
[2022-12-06] MEDS ORDERED: LIDOCAINE 2% 100MG/5ML SDV (FOR ANES.) As Ordered ONE (08:58)
[2022-12-06 09:37] VITALS: TEMP 97.1
[2022-12-06 10:02] VITALS: BP 150/72; O2SAT 97
== END 2022-12-06 10:15 | disposition home or self-care (01) ==
LOC: M OPP 07:16
PROVIDERS: ATTEND Internal Medicine Gastroenterology
DX: Z12.11 Encounter for screening for malignant neoplasm of colon (principal); D12.6 Benign neoplasm of colon, unspecified; K64.4 Residual hemorrhoidal skin tags; K64.8 Other hemorrhoids; K57.30 Diverticulosis of large intestine without perforation or abscess without bleeding; K29.70 Gastritis, unspecified, without bleeding; K22.89 Other specified disease of esophagus; Z79.82 Long term (current) use of aspirin; Z79.85 Long-term (current) use of injectable non-insulin antidiabetic drugs; Z79.891 Long term (current) use of opiate analgesic

== ENCOUNTER → 2022-12-10 | Outpatient (CLI) | payer OTHER, MEDICAID ==
[~2022-12-10] MED LIST changes: -NS 1,000 ML IV ONE
== END ==
LOC: M RAD 14:29
PROVIDERS: ATTEND Physician Assistant
DX: M16.12 Unilateral primary osteoarthritis, left hip (principal)

== ENCOUNTER → 2023-02-05 | Outpatient (CLI) | payer OTHER, MEDICAID ==
[~2023-02-05] MED LIST changes: +E-Z-GAS II EFFERVESCENT PACKET (SODIUM BICARB./CITRIC ACID/SIMETHICONE) As Ordered ONE; +E-Z-HD 98% w/w 340GM SUSP BTL As Ordered ONE; +E-Z-PAQUE 96% w/w SUSP 176GM BTL As Ordered ONE; -GABA-283 PO; +GABA-284 PO
== END ==
LOC: M RAD 10:23
PROVIDERS: ATTEND Internal Medicine Gastroenterology
DX: R13.10 Dysphagia, unspecified (principal); K44.9 Diaphragmatic hernia without obstruction or gangrene; K21.9 Gastro-esophageal reflux disease without esophagitis

== ENCOUNTER → 2023-03-18 | Outpatient (CLI) | payer OTHER, MEDICAID ==
[~2023-03-18] MED LIST changes: -E-Z-GAS II EFFERVESCENT PACKET (SODIUM BICARB./CITRIC ACID/SIMETHICONE) As Ordered ONE; -E-Z-HD 98% w/w 340GM SUSP BTL As Ordered ONE; -E-Z-PAQUE 96% w/w SUSP 176GM BTL As Ordered ONE
== END ==
LOC: M WHC 10:26
PROVIDERS: ATTEND Physician Assistant
DX: M87.052 Idiopathic aseptic necrosis of left femur (principal); Z53.9 Procedure and treatment not carried out, unspecified reason

== ENCOUNTER → 2023-12-29 | Outpatient (CLI) | payer OTHER, MEDICAID ==
[2023-12-29 13:24] LABS: BASO % 0.4 % (0.0-1.0); EOS # 0.1 10^3/uL (0.0-0.5); HEMATOCRIT 45.2 % (36.0-47.0); HEMOGLOBIN 14.6 g/dl (12.0-15.5); LYMPH # 1.6 10^3/uL (1.5-5.0); LYMPH % 23.3 % (24.0-44.0); MEAN CORPUSCULAR HEMOGLOBIN 30.3 pg (27.0-33.0); MEAN CORPUSCULAR HGB CONC 32.3 g/dl (32.0-36.5); MEAN CORPUSCULAR VOLUME 93.8 fl (80.0-96.0); MONO # 0.7 10^3/uL (0.0-0.8); MONO % 10.5 % (2.0-8.0); NEUTROPHILS # 4.5 10^3/uL (1.5-8.5); NEUTROPHILS % 63.5 % (36.0-66.0); PLATELET COUNT, AUTOMATED 256 10^3/uL (150-450); RED BLOOD COUNT 4.82 10^6/uL (4.00-5.40)
[2023-12-29 13:28] LABS: ALBUMIN 3.6 G/DL (3.2-5.2); ALKALINE PHOSPHATASE 90 U/L (46-116); ALT/SGPT 35 U/L (7.0-40); AST/SGOT 28 U/L (<34); BLOOD UREA NITROGEN 16 MG/DL (9-23); CALCIUM LEVEL 8.9 MG/DL (8.3-10.6); CARBON DIOXIDE LEVEL 33 MMOL/L (20-31); CHLORIDE LEVEL 103 MMOL/L (98-107); CHOLESTEROL LEVEL 129 MG/DL (<200); CHOLESTEROL RISK RATIO 2.59 (<5); CREATININE FOR GFR 0.77 MG/DL (0.55-1.30); GLOMERULAR FILTRATION RATE > 60.0 (>45); GLUCOSE, FASTING 129 MG/DL (74-106); HDL CHOLESTEROL 49.8 MG/DL (>40); IRON (FE) 90 UG/DL (50-170); NON-HDL-C 79.2 MG/DL; POTASSIUM SERUM 4.4 MMOL/L (3.5-5.1); SODIUM LEVEL 138 MMOL/L (136-145); TOTAL PROTEIN 6.7 G/DL (5.7-8.2); TRIGLYCERIDES LEVEL 181 MG/DL (<150)
[2023-12-29 13:29] LABS: FREE T4 1.04 NG/DL (0.89-1.76); THYROID STIMULATING HORMONE 1.395 uIU/ML (0.55-4.78)
[2023-12-29 13:30] LABS: TOTAL 25(OH) VITAMIN D 32.3 NG/ML (20.0-100.0); VITAMIN B12 LEVEL 321 PG/ML (211-911)
[2023-12-29 13:48] LABS: HEMOGLOBIN A1c 6.7 % (4.0-6.0)
[2023-12-29 13:54] LABS: CREATININE, URINE 118.2 MG/DL
[2023-12-29 13:55] LABS: MALB URINE SIEMENS < 3.0 MG/L; MAU/CREAT RATIO 2.5 MCG/MG (0.0-30.0)
== END ==
LOC: M PLALAB 10:07
PROVIDERS: ATTEND Nurse Practitioner Family
DX: E11.9 Type 2 diabetes mellitus without complications (principal); E78.5 Hyperlipidemia, unspecified; I10 Essential (primary) hypertension; D50.9 Iron deficiency anemia, unspecified; E55.9 Vitamin D deficiency, unspecified; E53.8 Deficiency of other specified B group vitamins

== ENCOUNTER → 2024-06-25 | Outpatient (CLI) | payer OTHER, MEDICAID ==
[~2024-06-25] MED LIST changes: +GABA-1172 PO; -GABA-282 PO
== END ==
LOC: M WUC 13:18
PROVIDERS: ATTEND Physician Assistant
DX: S40.011A Contusion of right shoulder, initial encounter (principal); M85.811 Other specified disorders of bone density and structure, right shoulder; M85.821 Other specified disorders of bone density and structure, right upper arm; M19.011 Primary osteoarthritis, right shoulder; W01.10XA Fall on same level from slipping, tripping and stumbling with subsequent striking against unspecified object, initial encounter; Y93.9 Activity, unspecified; Y92.9 Unspecified place or not applicable; Y99.9 Unspecified external cause status

== ENCOUNTER → 2024-09-27 | Outpatient (CLI) | payer OTHER, MEDICAID ==
[2024-09-27 11:01] LABS: BASO % 0.5 % (0.0-1.0); EOS # 0.2 10^3/uL (0.0-0.5); HEMATOCRIT 42.7 % (36.0-47.0); HEMOGLOBIN 14.2 g/dl (12.0-15.5); LYMPH # 1.5 10^3/uL (1.5-5.0); LYMPH % 24.2 % (24.0-44.0); MEAN CORPUSCULAR HEMOGLOBIN 30.3 pg (27.0-33.0); MEAN CORPUSCULAR HGB CONC 33.3 g/dl (32.0-36.5); MONO # 0.7 10^3/uL (0.0-0.8); MONO % 10.5 % (2.0-8.0); NEUTROPHILS # 3.9 10^3/uL (1.5-8.5); NEUTROPHILS % 61.3 % (36.0-66.0); PLATELET COUNT, AUTOMATED 243 10^3/uL (150-450); RED BLOOD COUNT 4.69 10^6/uL (4.00-5.40); WHITE BLOOD COUNT 6.4 10^3/uL (4.0-10.0)
[2024-09-27 11:07] LABS: TOTAL IRON BINDING CAPACITY 328 UG/DL (250-425)
[2024-09-27 11:09] LABS: ALBUMIN 3.7 G/DL (3.2-5.2); ALKALINE PHOSPHATASE 74 U/L (35-104); ALT/SGPT 38 U/L (7.0-40); AST/SGOT 30 U/L (<34); BILIRUBIN,TOTAL 0.9 MG/DL (0.3-1.2); BLOOD UREA NITROGEN 17 MG/DL (9-23); CALCIUM LEVEL 9.3 MG/DL (8.3-10.6); CARBON DIOXIDE LEVEL 32 MMOL/L (20-31); CHLORIDE LEVEL 100 MMOL/L (98-107); CHOLESTEROL LEVEL 134 MG/DL (<200); CHOLESTEROL RISK RATIO 2.91 (<5); CREATININE FOR GFR 0.72 MG/DL (0.55-1.30); GLOMERULAR FILTRATION RATE > 90.0 (>45); GLUCOSE, FASTING 116 MG/DL (74-106); HDL CHOLESTEROL 45.9 MG/DL (>40); LDL CHOLESTEROL 54.3 MG/DL (<100); NON-HDL-C 88.1 MG/DL; POTASSIUM SERUM 4.4 MMOL/L (3.5-5.1); SODIUM LEVEL 141 MMOL/L (136-145); TOTAL PROTEIN 6.9 G/DL (5.7-8.2); TRIGLYCERIDES LEVEL 169 MG/DL (<150)
[2024-09-27 11:10] LABS: IRON (FE) 77 UG/DL (50-170); PERCENT SATURATION 23.5 % (13.2-45.0)
[2024-09-27 11:13] LABS: FREE T4 1.13 NG/DL (0.89-1.76); VITAMIN B12 LEVEL 664 PG/ML (211-911)
[2024-09-27 11:14] LABS: THYROID STIMULATING HORMONE 2.661 uIU/ML (0.55-4.78)
[2024-09-27 11:32] LABS: MALB URINE SIEMENS < 3.0 MG/L
== END ==
LOC: M PLALAB 08:06
PROVIDERS: ATTEND Nurse Practitioner Family
DX: E11.9 Type 2 diabetes mellitus without complications (principal); E78.5 Hyperlipidemia, unspecified; D50.9 Iron deficiency anemia, unspecified; E55.9 Vitamin D deficiency, unspecified; E53.8 Deficiency of other specified B group vitamins

== ENCOUNTER → 2024-12-27 | Outpatient (CLI) | payer OTHER, MEDICAID ==
[2024-12-27 12:52] LABS: BASO # 0.0 10^3/uL (0.0-0.2); BASO % 0.5 % (0.0-1.0); EOS # 0.2 10^3/uL (0.0-0.5); EOS % 2.0 % (0.0-3.0); LYMPH # 1.3 10^3/uL (1.5-5.0); LYMPH % 17.2 % (24.0-44.0); MONO # 0.7 10^3/uL (0.0-0.8); MONO % 8.9 % (2.0-8.0); NEUTROPHILS # 5.4 10^3/uL (1.5-8.5); NEUTROPHILS % 71.1 % (36.0-66.0); PLATELET COUNT, AUTOMATED 259 10^3/uL (150-450)
[2024-12-27 12:59] LABS: ALT/SGPT 37.0 U/L (7.0-40); AST/SGOT 32.0 U/L (<34); CALCIUM LEVEL 8.7 MG/DL (8.3-10.6); CARBON DIOXIDE LEVEL 33.0 MMOL/L (20-31); CHLORIDE LEVEL 100.0 MMOL/L (98-107); CREATININE FOR GFR 0.78 MG/DL (0.55-1.30); GLOMERULAR FILTRATION RATE 82.2 (>45); POTASSIUM SERUM 4.3 MMOL/L (3.5-5.1); SODIUM LEVEL 141.0 MMOL/L (136-145)
[2024-12-27 13:05] LABS: INR 0.94
[2024-12-27 13:17] LABS: ESTIMATED AVERAGE GLUCOSE 140.0 MG/DL (60-110)
== END ==
LOC: M PLALAB 09:47
PROVIDERS: ATTEND Student in an Organized Health Care Education/Training Program
DX: Z01.818 Encounter for other preprocedural examination (principal); Z79.84 Long term (current) use of oral hypoglycemic drugs

== ENCOUNTER → 2025-03-29 | Outpatient (CLI) | payer OTHER, MEDICAID ==
[2025-03-29 11:28] LABS: BASO # 0.0 10^3/uL (0.0-0.2); BASO % 0.6 % (0.0-1.0); EOS # 0.2 10^3/uL (0.0-0.5); EOS % 2.8 % (0.0-3.0); ESTIMATED AVERAGE GLUCOSE 140.0 MG/DL (60-110); LYMPH # 1.7 10^3/uL (1.5-5.0); LYMPH % 23.2 % (24.0-44.0); MONO # 0.8 10^3/uL (0.0-0.8); MONO % 11.5 % (2.0-8.0); NEUTROPHILS # 4.5 10^3/uL (1.5-8.5); NEUTROPHILS % 61.8 % (36.0-66.0); PLATELET COUNT, AUTOMATED 300 10^3/uL (150-450)
[2025-03-29 11:43] LABS: CREATININE, URINE 204.8 MG/DL; MALB URINE SIEMENS 4.0 MG/L; MAU/CREAT RATIO 1.9 MCG/MG (0.0-30.0)
[2025-03-29 11:48] LABS: ALT/SGPT 32.0 U/L (7.0-40); AST/SGOT 32.0 U/L (<34); CALCIUM LEVEL 8.9 MG/DL (8.3-10.6); CARBON DIOXIDE LEVEL 32.0 MMOL/L (20-31); CHLORIDE LEVEL 101.0 MMOL/L (98-107); CHOLESTEROL LEVEL 131.0 MG/DL (<200); CHOLESTEROL RISK RATIO 2.49 (<5); CREATININE FOR GFR 0.82 MG/DL (0.55-1.30); GLOMERULAR FILTRATION RATE 77.4 (>45); LDL CHOLESTEROL 44.8 MG/DL (<100); NON-HDL-C 78.4 MG/DL; POTASSIUM SERUM 4.2 MMOL/L (3.5-5.1); SODIUM LEVEL 141.0 MMOL/L (136-145); TRIGLYCERIDES LEVEL 168.0 MG/DL (<150)
[2025-03-29 11:51] LABS: FREE T4 1.15 NG/DL (0.89-1.76)
[2025-03-29 12:24] LABS: MAGNESIUM LEVEL 1.9 MG/DL (1.8-2.4)
== END ==
LOC: M PLALAB 09:10
PROVIDERS: ATTEND Nurse Practitioner Family
DX: I48.91 Unspecified atrial fibrillation (principal); E11.9 Type 2 diabetes mellitus without complications; E78.5 Hyperlipidemia, unspecified; E55.9 Vitamin D deficiency, unspecified